=== PATIENT | female | born 1940 | race Caucasian/White ===

== ENCOUNTER 2018-03-17 20:11 | Emergency (ER) | payer OTHER ==
[2018-03-17 20:39] VITALS: RESP 18; TEMP 98; O2SAT 97
--- NOTE | 2018-03-17 22:38 | ED PDOC ---
HPI: Headache Time Seen by Provider: 03/17/18 21:16 Chief Complaint (Nursing): Headache Chief Complaint (Provider): Headache History Per: Patient History/Exam Limitations: no limitations Onset/Duration Of Symptoms: Days (x1) Current Symptoms Are (Timing): Still Present Additional Complaint(s): Ramiro Zhu is a 77 year old female with a past medical history of arthritis hypertension, diabetes, chronic back pain, and chronic leg pain who is presenting to the ED for evaluation of left ear pain, left sided headache, left shoulder pain, and chest pain onset last night. Patient states that she has pain all down the left arm and that her shoulder pain is worse with movement. She denies any shortness of breath, dizziness, fever, leg swelling, numbness, weakness, or urinary problems. Of note, patient is homeless and states that she ran out of her diabetes medications and has not been able to take them for a couple weeks. PMD: Darling Past Medical History Reviewed: Historical Data, Nursing Documentation, Vital Signs Vital Signs: Last Vital Signs Temp 98.0 F 03/17/18 20:37 Pulse 83 03/17/18 20:37 Resp 18 03/17/18 20:37 BP 190/100 H 03/17/18 20:37 Pulse Ox 97 03/17/18 20:37 - Medical History PMH: Arthritis, Asthma, Diabetes, HTN, Hypercholesterolemia, Chronic Pain (back and legs) Denies: Chronic Kidney Disease - Surgical History Surgical History: Cholecystectomy - Family History Family History: States: Unknown Family Hx - Social History Current smoker - smoking cessation education provided: No Alcohol: None Drugs: Denies - Immunization History Hx Tetanus Toxoid Vaccination: No Hx Influenza Vaccination: No Hx Pneumococcal Vaccination: No - Home Medications Home Medications: Ambulatory Orders Medication Instructions Recorded Crestor 40 mg PO DAILY 08/14/15 Gabapentin 600 mg PO TID 08/14/15 Levemir 12 units SUBCUT HS 08/14/15 Montelukast 10 mg PO DAILY 08/14/15 Omeprazole 40 mg PO DAILY 08/14/15 Prednisone 10 mg PO DAILY 08/14/15 Proair Hfa 90 % INH Q12H 08/14/15 Spiriva Inhalation Handihaler 18 inhaler INH Q6H 08/14/15 Device Voltaren 1 gel TOP Q6H PRN 08/14/15 metFORMIN [glucOPHAGE] 850 mg PO BID #0 tab 08/18/15 Ondansetron ODT [Zofran ODT] 1 odt PO BID PRN #14 odt 08/21/15 Polyethylene Glycol 3350 [Miralax] 17 gm PO DAILY #270 ml 08/21/15 oxyCODONE/Acetaminophen [Percocet 1 tab PO QID PRN #14 tab 08/21/15 5/325 mg Tab] Levofloxacin 750 mg PO DAILY 12/01/17 Losartan-Hctz 100-25 mg Tab 100 mg PO DAILY 12/01/17 Prednisone [Deltasone] 3 tab PO DAILY #12 tablet 12/01/17 Proair Hfa 90 mcg IH Q4 PRN 12/01/17 Insulin Aspart [Novolog] 15 unit SC BID #1 bottle 03/18/18 Insulin Detemir [Levemir] 45 units SC ACHS #1 vial 03/18/18 Losartan/Hydrochlorothiazide 1 each PO DAILY #30 tablet 03/18/18 [Losartan-Hctz 100-25 mg Tab] Non-Formulary 1 ea SC DAILY #1 ea 03/18/18 - Allergies Allergies/Adverse Reactions: Allergies Allergy/AdvReac Type Severity Reaction Status Date / Time celecoxib [From Celebrex] Allergy RASH Verified 03/17/18 20:37 ibuprofen [From Motrin] Allergy RASH Verified 03/17/18 20:37 Penicillins Allergy RASH Verified 03/17/18 20:37 Review of Systems ROS Statement: Except As Marked, All Systems Reviewed And Found Negative Constitutional: Negative for: Fever ENT: Positive for: Ear Pain Cardiovascular: Positive for: Chest Pain Respiratory: Negative for: Shortness of Breath Musculoskeletal: Positive for: Shoulder Pain, Arm Pain Neurological: Positive for: Headache Physical Exam - Reviewed Nursing Documentation Reviewed: Yes Vital Signs Reviewed: Yes - Physical Exam Appears: Positive for: Well (appears comfortable), Non-toxic, No Acute Distress Head Exam: Positive for: ATRAUMATIC, NORMAL INSPECTION, NORMOCEPHALIC Skin: Positive for: Normal Color, Warm, Dry Eye Exam: Positive for: EOMI, Normal appearance, PERRL ENT: Positive for: Other (tenderness to left sided posterior auricular and mastoid area ) Neck: Positive for: Normal, Painless ROM, Supple Cardiovascular/Chest: Positive for: Regular Rate, Rhythm. Negative for: Murmur Respiratory: Positive for: Normal Breath Sounds. Negative for: Respiratory Distress Gastrointestinal/Abdominal: Positive for: Normal Exam, Soft. Negative for: Tenderness Back: Positive for: Normal Inspection Extremity: Positive for: Normal ROM (painful for left shoulder). Negative for: Deformity, Swelling Neurologic/Psych: Positive for: Alert, Oriented. Negative for: Motor/Sensory Deficits - Laboratory Results Result Diagrams: 03/17/18 23:26 03/17/18 23:26 - ECG O2 Sat by Pulse Oximetry: 97 (RA) Pulse Ox Interpretation: Normal - Progress Re-evaluation Time: 05:50 Condition: Re-examined, Improved Medical Decision Making Medical Decision Making: Time: 21:56 Impression: headache, ear pain, chest pain, left shoulder pain Differentials: --Ear pain: otitis, mastoiditis --Headache: tension headache, migraines, musculoskeletal headache --Shoulder pain: musculoskeletal pain, tendonitis, arthritis --Chest Pain: ACS, Musculoskeletal pain Plan: --CT Head --CT Mastoids --EKG --BMP --Troponin --ED Urine Dipstick --CBC --Erythrocyte Sedimentation Rate --Chest X-ray --Glucose, POC --Flexeril 10 mg PO --Ultram 50 mg PO --Left Shoulder x-ray --Rapid Strep 21:56 CT Head FINDINGS: Brain: There are areas of periventricular and deep white matter hypoattenuation , nonspecific but most likely related to chronic small vessel ischemic changes. Ventricles: There is symmetric prominence of the ventricles and sulci, compatible with ageappropriate cerebral atrophy. Bones/joints: Normal. No acute fracture. Sinuses: Normal as visualized. No acute sinusitis. Mastoid air cells: Normal as visualized. No mastoid effusion. Soft tissues: Normal. IMPRESSION: No acute intracranial pathology. Age-appropriate volume loss. Nonspecific white matter changes likely related to microvascular changes. 23:41 CT Mastoids FINDINGS: Sella: Unremarkable. Mastoid air cells: Unremarkable as visualized. No mastoid effusion. Auditory system: Unremarkable. Intact ossicles. No middle ear fluid. Bones/joints: No acute fracture. Soft tissues: Unremarkable. IMPRESSION: Normal sella/posterior auditory CT. Scribe Attestation: Documented by, Juliann Alfonso acting as a scribe for Michelle Mckeon MD. Provider Scribe Attestation: All medical record entries made by the Scribe were at my direction and personally dictated by me. I have reviewed the chart and agree that the record accurately reflects my personal performance of the history, physical exam, medical decision making, and the department course for this patient. I have also personally directed, reviewed, and agree with the discharge instructions and disposition. Disposition - Clinical Impression Clinical Impression: Back pain, Headache, Hyperglycemia - Patient ED Disposition Is Patient to be Admitted: No Doctor Will See Patient In The: Office Counseled Patient/Family Regarding: Studies Performed, Diagnosis, Need For Followup - Disposition Referrals: Ramiro Bloom MD [Family Provider] - Disposition: Routine/Home Disposition Time: 05:57 Condition: GOOD Additional Instructions: RAMIRO ZHU, thank you for letting us take care of you today. Your provider was Michelle Mckeon MD and you were treated for HEADACHE,THROAT PAIN. The emergency medical care you received today was directed at your acute symptoms. If you were prescribed any medication, please fill it and take as directed. It may take several days for your symptoms to resolve. Return to the Emergency Department if your symptoms worsen, do not improve, or if you have any other problems. Please contact your doctor or call one of the physicians/clinics you have been referred to that are listed on the Patient Visit Information form that is included in your discharge packet. Bring any paperwork you were given at discharge with you along with any medications you are taking to your follow up visit. Our treatment cannot replace ongoing medical care by a primary care provider outside of the emergency department. Thank you for allowing the [facility] team to be part of your care today. If you had an X-Ray or CT scan: A Radiologist will review the ED reading if any change in treatment is needed we will contact you. If you had a blood, urine, or wound culture: It will take several days for the results, if any change in treatment is needed we will contact you. If you had an STI test: It will take 48 hours for the results. Please call after 1 week if you have not heard back. Prescriptions: Insulin Aspart [Novolog] 15 unit SC BID #1 bottle Insulin Detemir [Levemir] 45 units SC ACHS #1 vial Losartan/Hydrochlorothiazide [Losartan-Hctz 100-25 mg Tab] 1 each PO DAILY #30 tablet Non-Formulary 1 ea SC DAILY #1 ea Instructions: Hyperglycemia, Adult (DC), Headache, Adult (DC) Print Language: FAROESE
[2018-03-17 23:41] LABS: BASO # 0.1 K/uL (0.0-0.2); BASO % 0.8 % (0.0-2.0); EOS # 0.2 K/uL (0.0-0.7); HEMOGLOBIN 12.9 g/dL (12.0-16.0); LYMPH # 3.2 K/uL (1.0-4.3); LYMPH % 35.8 % (20.0-40.0); MEAN CELL VOLUME 85.3 fl (81.0-99.0); MEAN CORPUSCULAR HEMOGLOBIN 28.8 pg (27.0-31.0); MEAN CORPUSCULAR HGB CONC 33.7 g/dL (33.0-37.0); MEAN PLATELET VOLUME 9.8 fl (7.2-11.7); MONO # 0.7 K/uL (0.0-0.8); MONO % 7.7 % (0.0-10.0); NEUT # 4.8 K/uL (1.8-7.0); NEUT % 53.7 % (50.0-75.0); RBC 4.49 Mil/uL (3.80-5.20); RED CELL DISTRIBUTION WIDTH 13.3 % (11.5-14.5); WHITE BLOOD COUNT 8.9 K/uL (4.8-10.8)
[2018-03-17 23:54] LABS: BLOOD UREA NITROGEN 29 mg/dl (7-17); CALCIUM 9.2 mg/dL (8.4-10.2); GFR NON-AFRICAN AMERICAN 48
[2018-03-18 07:27] VITALS: BP 175/92; PULSE 72
--- NOTE | 2018-03-18 07:40 | CT ---
Date of service: 03/17/2018 PROCEDURE: CT HEAD WITHOUT CONTRAST. HISTORY: headache left ear pain COMPARISON: None available. TECHNIQUE: Axial computed tomography images were obtained through the head/brain without intravenous contrast. Radiation dose: Total exam DLP = mGy-cm. This CT exam was performed using one or more of the following dose reduction techniques: Automated exposure control, adjustment of the mA and/or kV according to patient size, and/or use of iterative reconstruction technique. FINDINGS: HEMORRHAGE: No intracranial hemorrhage. BRAIN: No mass effect or edema. No atrophy or chronic microvascular ischemic changes. VENTRICLES: Unremarkable. No hydrocephalus. CALVARIUM: Unremarkable. PARANASAL SINUSES: Unremarkable as visualized. No significant inflammatory changes. MASTOID AIR CELLS: Unremarkable as visualized. No inflammatory changes. OTHER FINDINGS: None. IMPRESSION: Normal CT of the Head.
--- NOTE | 2018-03-18 08:13 | CT ---
Date of service: 03/17/2018 PROCEDURE: CT OF THE TEMPORAL BONES WITHOUT CONTRAST HISTORY: left ear pain periaurical pain COMPARISON: None available. TECHNIQUE: High resolution axial images of the temporal bones were obtained. Coronal and sagittal reformats were generated. Radiation dose: Total exam DLP = mGy-cm. This CT exam was performed using one or more of the following dose reduction techniques: Automated exposure control, adjustment of the mA and/or kV according to patient size, and/or use of iterative reconstruction technique. FINDINGS: RIGHT TEMPORAL BONE: RIGHT MIDDLE EAR: Normal RIGHT INNER EAR: Cochlea: Normal Semicircular canals: Normal RIGHT MASTOID AIR CELLS: Normal RIGHT INTERNAL AUDITORY CANAL: Normal RIGHT EXTERNAL AUDITORY CANAL: Normal RIGHT VESTIBULAR AND COCHLEAR AQUEDUCT: Normal OTHER: LEFT TEMPORAL BONE: LEFT MIDDLE EAR: Normal LEFT INNER EAR: Cochlea: Normal Semicircular canals: Normal LEFT MASTOID AIR CELLS: Normal LEFT INTERNAL AUDITORY CANAL: Normal LEFT EXTERNAL AUDITORY CANAL: Normal LEFT VESTIBULAR AND COCHLEAR AQUEDUCTS: Normal OTHER FINDINGS: None . IMPRESSION: Unremarkable non contrast enhanced CT of the temporal bones.
--- NOTE | 2018-03-18 08:13 | RAD ---
Date of service: 03/17/2018 PROCEDURE: Radiographs of the Left Shoulder HISTORY: left shoulder pain no injury COMPARISON: No prior. FINDINGS: BONES: Normal. No fracture. JOINTS: Normal. Glenohumeral and acromioclavicular joints preserved. No osteoarthritis. SOFT TISSUES: Normal. OTHER FINDINGS: None. IMPRESSION: Normal radiographs of the left shoulder.
--- NOTE | 2018-03-18 08:17 | RAD ---
Date of service: 03/17/2018 HISTORY: chest pain COMPARISON: No prior. FINDINGS: LUNGS: No active pulmonary disease. PLEURA: No significant pleural effusion identified, no pneumothorax apparent. CARDIOVASCULAR: Normal. OSSEOUS STRUCTURES: No significant abnormalities. VISUALIZED UPPER ABDOMEN: Normal. OTHER FINDINGS: None. IMPRESSION: No active disease.
--- NOTE | 2018-03-18 21:29 | CARD ---
APPROVED REPORT Date of service: 03/17/2018 <Conclusion> Normal sinus rhythm Nonspecific T wave abnormality Abnormal ECG
== END 2018-03-18 07:00 | disposition home or self-care (01) ==
LOC: H.ER 20:11
DX: R51 Headache (principal); M54.9 Dorsalgia, unspecified; E11.65 Type 2 diabetes mellitus with hyperglycemia; Z79.4 Long term (current) use of insulin; G89.29 Other chronic pain; I10 Essential (primary) hypertension; J45.909 Unspecified asthma, uncomplicated; Z59.0 Homelessness; Z88.0 Allergy status to penicillin; Z88.6 Allergy status to analgesic agent

== ENCOUNTER 2018-03-28 21:27 | Emergency (ER) | payer OTHER ==
[2018-03-28 21:51] VITALS: O2SAT 95
[2018-03-28 22:29] LABS: BASO # 0.1 K/uL (0.0-0.2); BASO % 0.9 % (0.0-2.0); EOS # 0.1 K/uL (0.0-0.7); EOS % 1.9 % (0.0-4.0); HEMOGLOBIN 13.4 g/dL (12.0-16.0); LYMPH # 2.7 K/uL (1.0-4.3); LYMPH % 37.7 % (20.0-40.0); MEAN CELL VOLUME 85.3 fl (81.0-99.0); MEAN CORPUSCULAR HEMOGLOBIN 28.7 pg (27.0-31.0); MEAN CORPUSCULAR HGB CONC 33.6 g/dL (33.0-37.0); MEAN PLATELET VOLUME 9.6 fl (7.2-11.7); MONO # 0.6 K/uL (0.0-0.8); MONO % 8.5 % (0.0-10.0); NEUT # 3.7 K/uL (1.8-7.0); RBC 4.68 Mil/uL (3.80-5.20); RED CELL DISTRIBUTION WIDTH 13.7 % (11.5-14.5); WHITE BLOOD COUNT 7.3 K/uL (4.8-10.8)
[2018-03-28 22:34] LABS: SQUAMOUS EPITHIAL 2 /hpf (0-5); URINE BACTERIA RARE (<OCC); URINE BILIRUBIN NEGATIVE (NEGATIVE); URINE BLOOD SMALL (NEGATIVE); URINE CLARITY SLIGHTY-CLOUDY (Clear); URINE COLOR COLORLESS (YELLOW); URINE GLUCOSE (UA) >=500 mg/dL (Normal); URINE LEUKOCYTE ESTERASE LARGE Leu/uL (Negative); URINE PROTEIN 30 mg/dL (NEGATIVE); URINE UROBILINOGEN 0.2-1.0 mg/dL (0.2-1.0)
[2018-03-28] MEDS ORDERED: Insulin Regular 100 units/ml IV ONE (22:38)
[2018-03-28 22:55] LABS: ALB/GLOB RATIO 1.1 (1.0-2.1); ALBUMIN 3.8 g/dL (3.5-5.0); ALT/SGPT 32 U/L (9-52); AST/SGOT 26 U/L (14-36); BLOOD UREA NITROGEN 16 mg/dl (7-17); CALCIUM 9.3 mg/dL (8.4-10.2); GFR NON-AFRICAN AMERICAN > 60
--- NOTE | 2018-03-28 23:44 | ED PDOC ---
HPI: Headache Time Seen by Provider: 03/28/18 21:56 Chief Complaint (Nursing): Dizziness/Lightheaded Chief Complaint (Provider): headache History Per: Patient History/Exam Limitations: no limitations Onset/Duration Of Symptoms: Days (x2) Current Symptoms Are (Timing): Better Associated Symptoms: denies: Blurred Vision, Nausea, Vomiting Additional Complaint(s): Meli Zhu is a 77 year old female, with a past medical history of HTN and diabetes, who presents to the emergency department complaining of a headache onset since this evening. Patient reports headache was severe and lasted for an hour but has subsided. Patient states she ran out of medications and has not taken her HTN medications since Monday. She also reports not taking her insulin yesterday. Patient has not been able to see her PMD for her refills. She denies any nausea, vomit, visual disturbances, fever, chills or neck pain. No further medical complaints. PMD: Meli Bloom Past Medical History Reviewed: Historical Data, Nursing Documentation, Vital Signs Vital Signs: Last Vital Signs Temp 98.0 F 03/28/18 21:47 Pulse 65 03/28/18 22:46 Resp 16 03/28/18 21:47 BP 184/92 H 03/28/18 22:46 Pulse Ox 95 03/28/18 21:47 - Medical History PMH: Arthritis, Asthma, Diabetes, HTN, Hypercholesterolemia, Chronic Pain (back and legs) Denies: Chronic Kidney Disease - Surgical History Surgical History: Cholecystectomy - Family History Family History: States: Unknown Family Hx - Social History Current smoker - smoking cessation education provided: No Alcohol: None Drugs: Denies - Immunization History Hx Tetanus Toxoid Vaccination: No Hx Influenza Vaccination: No Hx Pneumococcal Vaccination: No - Home Medications Home Medications: Ambulatory Orders Medication Instructions Recorded Crestor 40 mg PO DAILY 08/14/15 Gabapentin 600 mg PO TID 08/14/15 Levemir 12 units SUBCUT HS 08/14/15 Montelukast 10 mg PO DAILY 08/14/15 Omeprazole 40 mg PO DAILY 08/14/15 Prednisone 10 mg PO DAILY 08/14/15 Proair Hfa 90 % INH Q12H 08/14/15 Spiriva Inhalation Handihaler 18 inhaler INH Q6H 08/14/15 Device Voltaren 1 gel TOP Q6H PRN 08/14/15 metFORMIN [glucOPHAGE] 850 mg PO BID #0 tab 08/18/15 Ondansetron ODT [Zofran ODT] 1 odt PO BID PRN #14 odt 08/21/15 Polyethylene Glycol 3350 [Miralax] 17 gm PO DAILY #270 ml 08/21/15 oxyCODONE/Acetaminophen [Percocet 1 tab PO QID PRN #14 tab 08/21/15 5/325 mg Tab] Levofloxacin 750 mg PO DAILY 12/01/17 Losartan-Hctz 100-25 mg Tab 100 mg PO DAILY 12/01/17 Prednisone [Deltasone] 3 tab PO DAILY #12 tablet 12/01/17 Proair Hfa 90 mcg IH Q4 PRN 12/01/17 Insulin Aspart [Novolog] 15 unit SC BID #1 bottle 03/18/18 Insulin Detemir [Levemir] 45 units SC ACHS #1 vial 03/18/18 Losartan/Hydrochlorothiazide 1 each PO DAILY #30 tablet 03/18/18 [Losartan-Hctz 100-25 mg Tab] Non-Formulary 1 ea SC DAILY #1 ea 03/18/18 Losartan/Hydrochlorothiazide 1 each PO QAM #7 tablet 03/29/18 [Losartan-Hctz 100-25 mg Tab] - Allergies Allergies/Adverse Reactions: Allergies Allergy/AdvReac Type Severity Reaction Status Date / Time celecoxib [From Celebrex] Allergy RASH Verified 03/17/18 20:37 ibuprofen [From Motrin] Allergy RASH Verified 03/17/18 20:37 Penicillins Allergy RASH Verified 03/17/18 20:37 Review of Systems ROS Statement: Except As Marked, All Systems Reviewed And Found Negative Constitutional: Negative for: Fever, Chills Eyes: Negative for: Vision Change Gastrointestinal: Negative for: Nausea, Vomiting Musculoskeletal: Negative for: Neck Pain Neurological: Positive for: Headache Physical Exam - Reviewed Nursing Documentation Reviewed: Yes Vital Signs Reviewed: Yes - Physical Exam Appears: Positive for: No Acute Distress Head Exam: Positive for: ATRAUMATIC, NORMOCEPHALIC Skin: Positive for: Normal Color, Warm, Dry Eye Exam: Positive for: Normal appearance, EOMI, PERRL Neck: Positive for: Painless ROM, Supple Cardiovascular/Chest: Positive for: Regular Rate, Rhythm. Negative for: Murmur Respiratory: Positive for: Normal Breath Sounds. Negative for: Respiratory Distress Gastrointestinal/Abdominal: Positive for: Normal Exam, Soft. Negative for: Tenderness, Guarding, Rebound Back: Positive for: Normal Inspection. Negative for: L CVA Tenderness, R CVA Tenderness, Vertebral Tenderness Extremity: Positive for: Normal ROM (upper and lower extremities). Negative for: Deformity, Swelling Neurologic/Psych: Positive for: Alert, Oriented, Gait (steady). Negative for: Motor/Sensory Deficits - Laboratory Results Result Diagrams: 03/28/18 22:25 03/28/18 22:25 - ECG O2 Sat by Pulse Oximetry: 95 (RA) Pulse Ox Interpretation: Normal Medical Decision Making Medical Decision Making: Time: 21:56 Initial Impression: 77 y/o female with headache in setting of noncompliant HTN. Initial Plan: --EKG --CMP --Troponin I --Urine dipstick --CBC w/ differential --Cozaar 100 mg PO --Cozaar 100 mg PO --HumunLIN R 6 units IV --Hydrodiuril 25 mg PO --Hydrodiuril 25 mg PO --Urinalysis --Reevaluation 00:45 -Labs reviewed and showed no clinical significant abnormalities. Patient reports improvement of symptoms. Blood pressure and glucose levels improved. Diagnosis of HTN. Patient reinforced need to follow up with PMD, and 1 week supply of blood pressure medications prescribed. Patient instructed to refill her insulin which is renewable at her local pharmacy. Return precautions provided. Scribe Attestation: Documented by Chris Rojo, acting as a scribe for Mika Keys MD. Provider Scribe Attestation: All medical record entries made by the Scribe were at my direction and personally dictated by me. I have reviewed the chart and agree that the record accurately reflects my personal performance of the history, physical exam, medical decision making, and the department course for this patient. I have also personally directed, reviewed, and agree with the discharge instructions and disposition. Disposition - Clinical Impression Clinical Impression: Hypertension, Diabetes mellitus - Disposition Disposition: Routine/Home Disposition Time: 00:47 Condition: STABLE Prescriptions: Losartan/Hydrochlorothiazide [Losartan-Hctz 100-25 mg Tab] 1 each PO QAM #7 tablet Instructions: High Blood Pressure in Adults Forms: [facility] (Icelandic) Print Language: BAHAMIAN
[2018-03-29 01:08] VITALS: BP 179/78; PULSE 62; RESP 18; TEMP 98.4
--- NOTE | 2018-03-29 07:54 | CARD ---
APPROVED REPORT Date of service: 03/28/2018 EKG Measurement Heart [id number] <Conclusion> Normal sinus rhythm Nonspecific T wave abnormality Abnormal ECG
== END 2018-03-29 00:50 | disposition home or self-care (01) ==
LOC: H.ER 21:27
DX: I10 Essential (primary) hypertension (principal); E11.9 Type 2 diabetes mellitus without complications; E78.00 Pure hypercholesterolemia, unspecified; Z88.6 Allergy status to analgesic agent; Z88.0 Allergy status to penicillin

== ENCOUNTER 2018-04-13 10:55 | Emergency (ER) | payer OTHER ==
--- NOTE | 2018-04-13 12:51 | ED PDOC ---
Lower Extremity Pain/Injury Time Seen by Provider: 04/13/18 11:31 Chief Complaint (Nursing): Lower Extremity Problem/Injury Chief Complaint (Provider): Wants nails cut in ER, medication refill History Per: Patient History/Exam Limitations: no limitations Current Symptoms Are (Timing): Still Present Additional Complaint(s): 77 yo female states she is recently homeless and would like to have her nails cut. PT states that she went to the clinic and they told her she needed to come to the ER. PT also states she would like a refill of her Voltran cream which she uses for foot pain due to arthritis. Pt denies any complaints. No N/V/D, chest pain, SOB, etc. Past Medical History Reviewed: Historical Data, Nursing Documentation, Vital Signs Vital Signs: Last Vital Signs Temp 97.5 F L 04/13/18 11:11 Pulse 77 04/13/18 11:11 Resp 18 04/13/18 11:11 BP 165/79 H 04/13/18 11:11 Pulse Ox 95 04/13/18 11:11 - Medical History PMH: Arthritis, Asthma, Diabetes, HTN, Hypercholesterolemia, Chronic Pain (back and legs) Denies: Chronic Kidney Disease - Surgical History Surgical History: Cholecystectomy - Family History Family History: States: Unknown Family Hx - Immunization History Hx Tetanus Toxoid Vaccination: No Hx Influenza Vaccination: No Hx Pneumococcal Vaccination: No - Home Medications Home Medications: Ambulatory Orders Medication Instructions Recorded Albuterol Sulfate [Proair Hfa] 2 puff IH Q4 PRN 04/13/18 Diclofenac Sodium [Voltaren] 100 gm TP TID PRN #60 gel..gram. 04/13/18 Fluticasone/Salmeterol [Advair 1 puff IH Q12 04/13/18 250-50 Diskus] Insulin Detemir [Levemir] 40 unit SC HS 04/13/18 Insulin Detemir [Levemir] 45 unit SC QAM 04/13/18 Losartan/Hydrochlorothiazide 1 tab PO DAILY 04/13/18 [Hyzaar 100-25 Tablet] MetFORMIN [glucoPHAGE] 1,000 mg PO BID 04/13/18 SITagliptin [Januvia] 100 mg PO DAILY 04/13/18 Sertraline [Zoloft] 25 mg PO DAILY 04/13/18 Tiotropium [Spiriva] 18 mcg IH DAILY 04/13/18 cycloSPORINE [Restasis] 1 drop OU Q12 04/13/18 - Allergies Allergies/Adverse Reactions: Allergies Allergy/AdvReac Type Severity Reaction Status Date / Time celecoxib [From Celebrex] Allergy RASH Verified 03/17/18 20:37 ibuprofen [From Motrin] Allergy RASH Verified 03/17/18 20:37 Penicillins Allergy RASH Verified 03/17/18 20:37 Review of Systems ROS Statement: Except As Marked, All Systems Reviewed And Found Negative Constitutional: Negative for: Fever, Chills Cardiovascular: Negative for: Chest Pain, Palpitations Respiratory: Negative for: Cough, Shortness of Breath Gastrointestinal: Negative for: Nausea, Vomiting, Abdominal Pain, Diarrhea Genitourinary Female: Negative for: Dysuria Physical Exam - Reviewed Nursing Documentation Reviewed: Yes Vital Signs Reviewed: Yes - Physical Exam Appears: Positive for: Well, Non-toxic, No Acute Distress Head Exam: Positive for: ATRAUMATIC, NORMAL INSPECTION, NORMOCEPHALIC Skin: Positive for: Normal Color, Warm, DRY Eye Exam: Positive for: Normal appearance ENT: Positive for: Normal ENT Inspection Neck: Positive for: Normal, Painless ROM Cardiovascular/Chest: Positive for: Regular Rate, Rhythm Respiratory: Positive for: CNT, Normal Breath Sounds Back: Positive for: Normal Inspection Extremity: Positive for: Normal ROM Neurologic/Psych: Positive for: Alert, Oriented - ECG O2 Sat by Pulse Oximetry: 95 Medical Decision Making Medical Decision Making: Discussed f/u with podiatry. Disposition - Clinical Impression Clinical Impression: Medication refill - Patient ED Disposition Is Patient to be Admitted: No Counseled Patient/Family Regarding: Diagnosis, Need For Followup, Rx Given - Disposition Referrals: Varun Pham DPM [Staff Provider] - Podiatry Clinic [Outside] Disposition: Routine/Home Disposition Time: 12:47 Condition: GOOD Prescriptions: Diclofenac Sodium [Voltaren] 100 gm TP TID PRN #60 gel..gram. PRN Reason: Pain, Moderate (4-7)
[2018-04-13 13:20] VITALS: BP 128/78; PULSE 80; RESP 19; TEMP 97.8; O2SAT 98
== END 2018-04-13 13:20 | disposition home or self-care (01) ==
LOC: H.ER 10:55
DX: Z76.0 Encounter for issue of repeat prescription (principal)

== ENCOUNTER 2018-04-16 23:37 | Emergency (ER) | payer OTHER ==
[2018-04-16 23:47] VITALS: TEMP 99
--- NOTE | 2018-04-17 01:57 | ED PDOC ---
HPI: SOB/CHF/COPD Time Seen by Provider: 04/17/18 00:20 Chief Complaint (Nursing): Shortness Of Breath Chief Complaint (Provider): leg swelling, heart palpitations History Per: Surgical Physician Assistant ([id number]) Onset/Duration Of Symptoms: Days (x3) Additional Complaint(s): Meli Zhu, a 77 year old female with past medical history of diabetes, asthma and hypertension, presents to the emergency department with chronic bilateral leg swelling, heart palpitations intermittant for 3 days. Patient is a frequent visitor and is recently homeless. She states that she has not seen her PMD in a while since she is on vacation. No further medical complaints. PMD: MerleKallie Past Medical History Reviewed: Historical Data, Nursing Documentation, Vital Signs Vital Signs: Last Vital Signs Temp 99 F 04/16/18 23:45 Pulse 100 H 04/16/18 23:45 Resp 22 04/16/18 23:45 BP 140/100 H 04/16/18 23:45 Pulse Ox 98 04/16/18 23:45 - Medical History PMH: Arthritis, Asthma, Diabetes, HTN, Hypercholesterolemia, Chronic Pain (back and legs) Denies: Chronic Kidney Disease - Surgical History Surgical History: Cholecystectomy - Family History Family History: States: Unknown Family Hx - Social History Current smoker - smoking cessation education provided: No Alcohol: None Drugs: Denies - Immunization History Hx Tetanus Toxoid Vaccination: No Hx Influenza Vaccination: No Hx Pneumococcal Vaccination: No - Home Medications Home Medications: Ambulatory Orders Medication Instructions Recorded Albuterol Sulfate [Proair Hfa] 2 puff IH Q4 PRN 04/13/18 Diclofenac Sodium [Voltaren] 100 gm TP TID PRN #60 gel..gram. 04/13/18 Fluticasone/Salmeterol [Advair 1 puff IH Q12 04/13/18 250-50 Diskus] Insulin Detemir [Levemir] 40 unit SC HS 04/13/18 Insulin Detemir [Levemir] 45 unit SC QAM 04/13/18 Losartan/Hydrochlorothiazide 1 tab PO DAILY 04/13/18 [Hyzaar 100-25 Tablet] RX: MetFORMIN [glucoPHAGE] 1,000 mg PO BID 04/13/18 SITagliptin [Januvia] 100 mg PO DAILY 04/13/18 Sertraline [Zoloft] 25 mg PO DAILY 04/13/18 Tiotropium [Spiriva] 18 mcg IH DAILY 04/13/18 cycloSPORINE [Restasis] 1 drop OU Q12 04/13/18 - Allergies Allergies/Adverse Reactions: Allergies Allergy/AdvReac Type Severity Reaction Status Date / Time celecoxib [From Celebrex] Allergy RASH Verified 03/17/18 20:37 ibuprofen [From Motrin] Allergy RASH Verified 03/17/18 20:37 Penicillins Allergy RASH Verified 03/17/18 20:37 Curb-65 Severity Score - CURB-65 Severity Score Confusion: No Bun >19mg/dl (>7mmol/L): No Respiratory Rate greater than/equal to 30: No Systolic BP <90 or Diastolic BP less than/equal 60mmHg: No Curb-65 Score: 0 Percentage 30-day mortality: 0.6% Wells Criteria for PE - Wells Criteria for Pulmonary Embolism Clinical Signs and Symptoms of DVT: No P.E is #1 Diagnosis, or Equally Likely: No Heart Rate >100: No Immobilization at least 3 days;Surgery previous 4 weeks: No Previous, objectively diagnosed PE or DVT: No Hemoptysis: No Malignancy w/treatment within 6 months, or palliative: No Total Score: 0 Review of Systems ROS Statement: Except As Marked, All Systems Reviewed And Found Negative ENT: Positive for: Ear Pain (left) Cardiovascular: Positive for: Palpitations. Negative for: Chest Pain, Orthopnea Respiratory: Negative for: Cough, Shortness of Breath Musculoskeletal: Positive for: Other (bilateral leg swelling) Physical Exam - Reviewed Nursing Documentation Reviewed: Yes Vital Signs Reviewed: Yes - Physical Exam Appears: Positive for: Well, Non-toxic, No Acute Distress Head Exam: Positive for: ATRAUMATIC, NORMAL INSPECTION, NORMOCEPHALIC Skin: Positive for: Normal Color, Warm, DRY Eye Exam: Positive for: EOMI, Normal appearance, PERRL ENT: Positive for: Normal ENT Inspection Neck: Positive for: Normal, Painless ROM Cardiovascular/Chest: Positive for: Regular Rate, Rhythm Respiratory: Positive for: Normal Breath Sounds. Negative for: Respiratory Distress Gastrointestinal/Abdominal: Positive for: Normal Exam, Soft Back: Positive for: Normal Inspection Extremity: Positive for: Normal ROM, Capillary Refill (less than 2 s), Swelling (trace, bilateral). Negative for: Tenderness, Pedal Edema, Calf Tenderness, Deformity Neurologic/Psych: Positive for: Alert, Oriented - Laboratory Results Result Diagrams: 04/17/18 02:30 04/17/18 02:30 - ECG O2 Sat by Pulse Oximetry: 98 (RA) Pulse Ox Interpretation: Normal Medical Decision Making Medical Decision Making: Time: 00:57 Initial Impression: pt with recent multiple ER visits, palpitaions, swelling, body pain rule out infection, elextrolyte abnormality Initial Plan: --EKG --CMP --Troponin --CBC w/ differential EKG reviewed Time: 4:18 -elevated sugar, patient given insulin, labs otherwise normal, CXR normal on my read. Time: 4:45 -EKG: normal sinus rhythm at 69 bpm, flat t wave leads 3 and F, hyperglycemia noted pt resting comfortably on reeval. no pain, no chest pain, no sob to be discharged w outpt follow up for sugar control, bp control. Scribe Attestation: Documented by Ilana Britton, acting as a scribe for Bk Uriarte MD. Provider Scribe Attestation: All medical record entries made by the Scribe were at my direction and personally dictated by me. I have reviewed the chart and agree that the record accurately reflects my personal performance of the history, physical exam, medi susan decision making, and the department course for this patient. I have also personally directed, reviewed, and agree with the discharge instructions and disposition. Disposition - Clinical Impression Clinical Impression: Hyperglycemia - Patient ED Disposition Is Patient to be Admitted: No Counseled Patient/Family Regarding: Studies Performed, Diagnosis, Need For F ollowup - Disposition Disposition: Routine/Home Disposition Time: 04:45 Condition: IMPROVED Additional Instructions: follow up with your primary doctor in 1-2 days return to the ED with any worsening or concerning symptoms Instructions: Hyperglycemia, Adult (DC) Forms: [employer] (Afghan) Print Language: GREEK
[2018-04-17 02:50] LABS: BASO # 0.1 K/uL (0.0-0.2); EOS # 0.2 K/uL (0.0-0.7); EOS % 2.1 % (0.0-4.0); HEMOGLOBIN 13.7 g/dL (12.0-16.0); LYMPH # 2.6 K/uL (1.0-4.3); LYMPH % 33.9 % (20.0-40.0); MEAN CELL VOLUME 84.8 fl (81.0-99.0); MEAN CORPUSCULAR HEMOGLOBIN 28.6 pg (27.0-31.0); MEAN CORPUSCULAR HGB CONC 33.8 g/dL (33.0-37.0); MONO # 0.6 K/uL (0.0-0.8); MONO % 7.9 % (0.0-10.0); NEUT # 4.2 K/uL (1.8-7.0); NEUT % 55.1 % (50.0-75.0); RBC 4.79 Mil/uL (3.80-5.20); RED CELL DISTRIBUTION WIDTH 13.3 % (11.5-14.5); WHITE BLOOD COUNT 7.7 K/uL (4.8-10.8)
[2018-04-17 03:12] LABS: ALBUMIN 3.7 g/dL (3.5-5.0); ALT/SGPT 26 U/L (9-52); AST/SGOT 31 U/L (14-36); BLOOD UREA NITROGEN 10 mg/dl (7-17); CALCIUM 9.1 mg/dL (8.4-10.2); GFR NON-AFRICAN AMERICAN > 60
[2018-04-17] MEDS ORDERED: Insulin Regular 100 units/ml SC STA (03:12)
[2018-04-17] MEDS ORDERED: Sodium Chloride 0.9% 1,000 ML IV STA (04:05)
[2018-04-17] MEDS ORDERED: Insulin Regular 100 units/ml ONE (04:05)
[2018-04-17] MEDS ORDERED: Albuterol 0.083% Inhal Sol (2.5 mg/3 mL) UD INH ONE (04:43)
[2018-04-17 05:15] VITALS: RESP 18
--- NOTE | 2018-04-17 06:49 | CARD ---
APPROVED REPORT Date of service: 04/16/2018 EKG Measurement Heart [id number] <Conclusion> Normal sinus rhythm Nonspecific ST abnormality Abnormal ECG
[2018-04-17 08:50] VITALS: BP 139/64; PULSE 88
--- NOTE | 2018-04-17 09:57 | RAD ---
Date of service: 04/17/2018 HISTORY: palpitations COMPARISON: 03/17/2018 FINDINGS: LUNGS: The lungs are well inflated and clear. PLEURA: No pleural effusions or pneumothorax. CARDIOVASCULAR: The heart is normal in size. Atherosclerotic aortic arch calcifications are present. OSSEOUS STRUCTURES: Within normal limits for the patient's age. VISUALIZED UPPER ABDOMEN: Normal. OTHER FINDINGS: None. IMPRESSION: No active pulmonary disease.
[2018-04-17 20:35] VITALS: O2SAT 98
== END 2018-04-17 05:20 | disposition home or self-care (01) ==
LOC: H.ER 23:37
DX: E11.65 Type 2 diabetes mellitus with hyperglycemia (principal); I10 Essential (primary) hypertension; G89.29 Other chronic pain; E78.00 Pure hypercholesterolemia, unspecified; J44.9 Chronic obstructive pulmonary disease, unspecified; Z59.0 Homelessness; Z79.4 Long term (current) use of insulin; Z79.899 Other long term (current) drug therapy; Z88.0 Allergy status to penicillin; Z88.6 Allergy status to analgesic agent
CPT/HCPCS: 71045; 80053; 82948; 84484; 85025; 93005; 96372; 99284; J7030

== ENCOUNTER 2018-04-23 04:32 | Emergency (ER) | payer OTHER ==
[2018-04-23 04:43] VITALS: BMI 33.5
[2018-04-23 04:48] VITALS: RESP 16; TEMP 97.8
[2018-04-23] MEDS ORDERED: Insulin Regular 100 units/ml IV ONE (05:04)
--- NOTE | 2018-04-23 05:06 | ED PDOC ---
HPI: SOB/CHF/COPD Time Seen by Provider: 04/23/18 04:35 Chief Complaint (Nursing): Abdominal Pain Chief Complaint (Provider): Shortness of breath History Per: Patient History/Exam Limitations: no limitations Additional Complaint(s): Patient is a 77 y/o female with history of hypertension, diabetes, and CHF, who presents to the ED complaining of shortness of breath. Patient is undomiciled and [facility]. When patient complained that she was made to sleep in a chair at the [facility] they sent her to the ED for evaluation. Patient denies any associated change in symptoms. She states she has chronic trouble sleeping in a chair but was made to do so at the [facility]. Past Medical History Reviewed: Historical Data, Nursing Documentation, Vital Signs Vital Signs: Last Vital Signs Temp 97.8 F 04/23/18 04:45 Pulse 74 04/23/18 04:45 Resp 16 04/23/18 04:45 BP 153/86 H 04/23/18 04:45 Pulse Ox 95 04/23/18 04:45 - Medical History PMH: Arthritis, Asthma, Diabetes, HTN, Hypercholesterolemia, Chronic Pain (back and legs) Denies: Chronic Kidney Disease - Surgical History Surgical History: Cholecystectomy - Family History Family History: States: Unknown Family Hx - Living Arrangements Living Arrangements: Other (homeless) - Immunization History Hx Tetanus Toxoid Vaccination: No Hx Influenza Vaccination: No Hx Pneumococcal Vaccination: No - Home Medications Home Medications: Ambulatory Orders Medication Instructions Recorded Albuterol Sulfate [Proair Hfa] 2 puff IH Q4 PRN 04/13/18 Diclofenac Sodium [Voltaren] 100 gm TP TID PRN #60 gel..gram. 04/13/18 Fluticasone/Salmeterol [Advair 1 puff IH Q12 04/13/18 250-50 Diskus] Insulin Detemir [Levemir] 40 unit SC HS 04/13/18 Insulin Detemir [Levemir] 45 unit SC QAM 04/13/18 Losartan/Hydrochlorothiazide 1 tab PO DAILY 04/13/18 [Hyzaar 100-25 Tablet] MetFORMIN [glucoPHAGE] 1,000 mg PO BID 04/13/18 SITagliptin [Januvia] 100 mg PO DAILY 04/13/18 Sertraline [Zoloft] 25 mg PO DAILY 04/13/18 Tiotropium [Spiriva] 18 mcg IH DAILY 04/13/18 cycloSPORINE [Restasis] 1 drop OU Q12 04/13/18 - Allergies Allergies/Adverse Reactions: Allergies Allergy/AdvReac Type Severity Reaction Status Date / Time celecoxib [From Celebrex] Allergy RASH Verified 04/23/18 04:43 ibuprofen [From Motrin] Allergy RASH Verified 04/23/18 04:43 Penicillins Allergy RASH Verified 04/23/18 04:43 Review of Systems ROS Statement: Except As Marked, All Systems Reviewed And Found Negative Respiratory: Positive for: Shortness of Breath Physical Exam - Reviewed Nursing Documentation Reviewed: Yes Vital Signs Reviewed: Yes - Physical Exam Appears: Positive for: Well, Non-toxic, No Acute Distress Head Exam: Positive for: ATRAUMATIC, NORMOCEPHALIC Skin: Positive for: Normal Color, Warm, Dry Eye Exam: Positive for: EOMI, Normal appearance, PERRL Neck: Positive for: Normal, Painless ROM Cardiovascular/Chest: Positive for: Regular Rate, Rhythm. Negative for: Murmur Respiratory: Positive for: Normal Breath Sounds. Negative for: Respiratory Distress Gastrointestinal/Abdominal: Positive for: Normal Exam, Soft. Negative for: Tenderness Extremity: Positive for: Normal ROM, Swelling (2+ edema to extremities). Negative for: Pedal Edema, Deformity Neurologic/Psych: Positive for: Alert, Oriented. Negative for: Motor/Sensory Deficits - Laboratory Results Result Diagrams: 04/23/18 05:00 04/23/18 05:00 - ECG O2 Sat by Pulse Oximetry: 95 (RA) Pulse Ox Interpretation: Normal Medical Decision Making Medical Decision Making: Time: 04:45 Impression: 77 y/o female with chronic CHF Initial plan: EKG BNP CMP Lipase Troponin I CBC w/ diff Insulin 10 units UA Time: 06:32 Labs reviewed no clinically significant abnormality with exception of elevated blood glucose. Provided reinforced need for insulin compliance. Diagnosis is hyperglycemia and diabetes. Patient is stable for discharge. -------- Scribe Attestation: Documented by Jenaro Artis, acting as a scribe for Mika Keys MD. Provider Scribe Attestation: All medical record entries made by the Scribe were at my direction and personally dictated by me. I have reviewed the chart and agree that the record accurately reflects my personal performance of the history, physical exam, medical decision making, and the department course for this patient. I have also personally directed, reviewed, and agree with the discharge instructions and disposition. Disposition - Clinical Impression Clinical Impression: Diabetes mellitus with hyperglycemia - Patient ED Disposition Is Patient to be Admitted: No - Disposition Disposition: Routine/Home Disposition Time: 06:32 Condition: STABLE Additional Instructions: RAMIRO POLANCO, thank you for letting us take care of you today. Your provider was Mika Keys MD and you were treated for ABD PAIN. The emergency medical care you received today was directed at your acute symptoms. If you were prescribed any medication, please fill it and take as directed. It may take several days for your symptoms to resolve. Return to the Emergency Department if your symptoms worsen, do not improve, or if you have any other problems. Please contact your doctor or call one of the physicians/clinics you have been referred to that are listed on the Patient Visit Information form that is included in your discharge packet. Bring any paperwork you were given at discharge with you along with any medications you are taking to your follow up v isit. Our treatment cannot replace ongoing medical care by a primary care provider outside of the emergency department. Thank you for allowing the [facility] team to be part of your care today. If you had an X-Ray or CT scan: A Radiologist will review the ED reading if any change in treatment is needed we will contact you. If you had a blood, urine, or wound culture: It will take several days for the results, if any change in treatment is needed we will contact you. If you had an STI test: It will take 48 hours for the results. Please call after 1 week if you have not heard back. Instructions: Diabetes and Diet Forms: [employer] (C[place] Rican) Print Language: SCOTTISH
[2018-04-23 05:16] LABS: BASO # 0.1 K/uL (0.0-0.2); BASO % 0.8 % (0.0-2.0); EOS # 0.2 K/uL (0.0-0.7); EOS % 2.7 % (0.0-4.0); HEMOGLOBIN 13.7 g/dL (12.0-16.0); LYMPH # 1.9 K/uL (1.0-4.3); LYMPH % 27.5 % (20.0-40.0); MEAN CELL VOLUME 85.3 fl (81.0-99.0); MEAN CORPUSCULAR HEMOGLOBIN 28.7 pg (27.0-31.0); MEAN CORPUSCULAR HGB CONC 33.7 g/dL (33.0-37.0); MEAN PLATELET VOLUME 9.7 fl (7.2-11.7); MONO # 0.7 K/uL (0.0-0.8); MONO % 10.8 % (0.0-10.0); NEUT % 58.2 % (50.0-75.0); NRBC % 0.1 % (0.0-0.0); RBC 4.78 Mil/uL (3.80-5.20); RED CELL DISTRIBUTION WIDTH 13.2 % (11.5-14.5); WHITE BLOOD COUNT 6.8 K/uL (4.8-10.8)
[2018-04-23 05:31] LABS: B-TYPE NATRIURETIC PEPTIDE 75.1 pg/ml (0-900)
[2018-04-23 05:39] LABS: ALB/GLOB RATIO 1.1 (1.0-2.1); ALBUMIN 3.7 g/dL (3.5-5.0); ALT/SGPT 30 U/L (9-52); AST/SGOT 26 U/L (14-36); BLOOD UREA NITROGEN 24 mg/dl (7-17); CALCIUM 9.8 mg/dL (8.4-10.2); GFR NON-AFRICAN AMERICAN 54; LIPASE 137 U/L (23-300)
[2018-04-23 06:43] VITALS: BP 137/66; PULSE 88; O2SAT 99
--- NOTE | 2018-04-23 10:48 | CARD ---
APPROVED REPORT Date of service: 04/23/2018 EKG Measurement Heart [id number] ID [id number] <Conclusion> Normal sinus rhythm Nonspecific T wave abnormality Abnormal ECG
== END 2018-04-23 06:50 | disposition home or self-care (01) ==
LOC: H.ER 04:32
DX: E11.65 Type 2 diabetes mellitus with hyperglycemia (principal); G89.29 Other chronic pain; I11.0 Hypertensive heart disease with heart failure; J44.9 Chronic obstructive pulmonary disease, unspecified; Z79.4 Long term (current) use of insulin; Z79.899 Other long term (current) drug therapy; Z88.0 Allergy status to penicillin; Z88.6 Allergy status to analgesic agent

== ENCOUNTER 2018-04-25 19:18 | Emergency (ER) | payer OTHER ==
[2018-04-25 19:18] VITALS: BMI 33.5
[2018-04-25 19:42] VITALS: O2SAT 95
--- NOTE | 2018-04-25 21:01 | ED PDOC ---
Lower Extremity Pain/Injury Time Seen by Provider: 04/25/18 20:13 Chief Complaint (Nursing): Lower Extremity Problem/Injury Chief Complaint (Provider): Leg swelling History Per: Patient History/Exam Limitations: no limitations Onset/Duration Of Symptoms: Days (x3) Current Symptoms Are (Timing): Still Present Additional Complaint(s): Meli Zhu, a 77 year old female with a past medical history of hypertension, diabetes, congestive heart failure, hypercholesterolemia, arthritis, asthma and well know to the ED for frequent visits secondary to homelessness, presents to the ED complaining of leg swelling associated with pain onset for x3 days. She denies taking any medications, and admits she has to walk frequently secondary to homelessness. The patient denies trauma, shortness of breath, chest pain, and fever. PCP: Dr Deal Past Medical History Reviewed: Historical Data, Nursing Documentation, Vital Signs Vital Signs: Last Vital Signs Temp 98.7 F 04/25/18 19:38 Pulse 86 04/25/18 19:38 Resp 17 04/25/18 19:38 BP 161/78 H 04/25/18 19:38 Pulse Ox 95 04/25/18 19:38 - Medical History PMH: Arthritis, Asthma, CHF, Diabetes, HTN, Hypercholesterolemia, Chronic Pain (back and legs) Denies: Chronic Kidney Disease - Surgical History Surgical History: Cholecystectomy - Family History Family History: States: Unknown Family Hx - Social History Current smoker - smoking cessation education provided: No Alcohol: None Drugs: Denies - Immunization History Hx Tetanus Toxoid Vaccination: No Hx Influenza Vaccination: No Hx Pneumococcal Vaccination: No - Home Medications Home Medications: Ambulatory Orders Medication Instructions Recorded Albuterol Sulfate [Proair Hfa] 2 puff IH Q4 PRN 04/13/18 Diclofenac Sodium [Voltaren] 100 gm TP TID PRN #60 gel..gram. 04/13/18 Fluticasone/Salmeterol [Advair 1 puff IH Q12 04/13/18 250-50 Diskus] Insulin Detemir [Levemir] 40 unit SC HS 04/13/18 Insulin Detemir [Levemir] 45 unit SC QAM 04/13/18 Losartan/Hydrochlorothiazide 1 tab PO DAILY 04/13/18 [Hyzaar 100-25 Tablet] RX: MetFORMIN [glucoPHAGE] 1,000 mg PO BID 04/13/18 SITagliptin [Januvia] 100 mg PO DAILY 04/13/18 Sertraline [Zoloft] 25 mg PO DAILY 04/13/18 Tiotropium [Spiriva] 18 mcg IH DAILY 04/13/18 cycloSPORINE [Restasis] 1 drop OU Q12 04/13/18 RX: Acetaminophen [Tylenol Extra 1,000 mg PO Q6 PRN #100 tablet 04/25/18 Strength] RX: traMADol [Ultram] 50 mg PO TID #15 tab 04/25/18 - Allergies Allergies/Adverse Reactions: Allergies Allergy/AdvReac Type Severity Reaction Status Date / Time celecoxib [From Celebrex] Allergy RASH Verified 04/25/18 19:42 ibuprofen [From Motrin] Allergy RASH Verified 04/25/18 19:42 Penicillins Allergy RASH Verified 04/25/18 19:42 Review of Systems ROS Statement: Except As Marked, All Systems Reviewed And Found Negative Constitutional: Negative for: Fever Cardiovascular: Positive for: Edema (leg). Negative for: Chest Pain Respiratory: Negative for: Shortness of Breath Musculoskeletal: Positive for: Leg Pain Physical Exam - Reviewed Nursing Documentation Reviewed: Yes Vital Signs Reviewed: Yes - Physical Exam Appears: Positive for: Non-toxic, No Acute Distress Extremity: Positive for: Pedal Edema (extended from leg edema), Swelling (bilateral lower extremity doughy edema with minimal pitting). Negative for: Calf Tenderness - Laboratory Results Result Diagrams: 04/25/18 20:56 04/25/18 20:56 - ECG O2 Sat by Pulse Oximetry: 95 (RA) Pulse Ox Interpretation: Normal Medical Decision Making Medical Decision Making: Time: 20:35 Initial Impression: Leg edema and hyperglycemia Initial Plan: --EKG --labs --chest x-ray 2300 Patient care endorsed from provider to Dr. Uriarte pending urine and repeat sugar. Scribe Attestation: Documented by Joby Pete & Chris Rojo, acting as a scribe for Ninfa Crum MD. Provider Scribe Attestation: All medical record entries made by the Scribe were at my direction and personally dictated by me. I have reviewed the chart and agree that the record accurately reflects my personal performance of the history, physical exam, medical decision making, and the department course for this patient. I have also personally directed, reviewed, and agree with the discharge instructions and disposition. Disposition - Clinical Impression Clinical Impression: Leg edema, Diabetes mellitus with hyperglycemia - Disposition Referrals: [facility] [Outside] - 04/26/18 Condition: IMPROVED Prescriptions: RX: Acetaminophen [Tylenol Extra Strength] 1,000 mg PO Q6 PRN #100 tablet PRN Reason: FEVER OR PAIN RX: traMADol [Ultram] 50 mg PO TID #15 tab Instructions: Dependent Edema (DC), Diabetes Type 2 (DC) Forms: [employer] (Kyrgyz) Print Language: LITHUANIAN
[2018-04-25 21:03] LABS: BASO # 0.1 K/uL (0.0-0.2); BASO % 0.7 % (0.0-2.0); EOS # 0.2 K/uL (0.0-0.7); EOS % 1.8 % (0.0-4.0); HEMOGLOBIN 12.5 g/dL (12.0-16.0); LYMPH # 2.4 K/uL (1.0-4.3); LYMPH % 26.9 % (20.0-40.0); MEAN CELL VOLUME 84.9 fl (81.0-99.0); MEAN PLATELET VOLUME 9.9 fl (7.2-11.7); MONO # 0.9 K/uL (0.0-0.8); NEUT # 5.4 K/uL (1.8-7.0); NEUT % 60.6 % (50.0-75.0); RBC 4.47 Mil/uL (3.80-5.20); RED CELL DISTRIBUTION WIDTH 13.4 % (11.5-14.5); WHITE BLOOD COUNT 8.9 K/uL (4.8-10.8)
[2018-04-25 21:10] LABS: VENOUS BLOOD GAS BASE EXCESS 5.5 mmol/L (0.0-2.0); VENOUS BLOOD GAS PCO2 56 mmHg (40-60); VENOUS BLOOD GAS PO2 27 mm/Hg (30-55); VENOUS BLOOD PH 7.37 (7.32-7.43)
[2018-04-25] MEDS ORDERED: Insulin Regular 100 units/ml SC STA ×2 (21:12→22:53)
[2018-04-25] MEDS ORDERED: Insulin Regular 100 units/ml IVP STA (21:12)
[2018-04-25 21:28] LABS: B-TYPE NATRIURETIC PEPTIDE 47.6 pg/ml (0-900)
[2018-04-25 21:52] LABS: ALB/GLOB RATIO 1.1 (1.0-2.1); ALBUMIN 3.6 g/dL (3.5-5.0); ALT/SGPT 27 U/L (9-52); AST/SGOT 25 U/L (14-36); BLOOD UREA NITROGEN 23 mg/dl (7-17); CALCIUM 9.1 mg/dL (8.4-10.2); GFR NON-AFRICAN AMERICAN > 60
--- NOTE | 2018-04-25 23:10 | ED PDOC ---
- Laboratory Results Result Diagrams: 04/25/18 20:56 04/25/18 20:56 - ECG O2 Sat by Pulse Oximetry: 95 (RA) Medical Decision Making Medical Decision Makin Patient care endorsed from Dr. Crum to this provider pending urine and repeat sugar. UA positive for infection sugar improving pt awake alert, patent airway, stable gait. stable for dc. aware that needs tof ollow up Scribe Attestation: Documented by Abby Majano, acting as a scribe for Bk Uriarte MD. Provider Scribe Attestation: All medical record entries made by the Scribe were at my direction and personally dictated by me. I have reviewed the chart and agree that the record accurately reflects my personal performance of the history, physical exam, medical decision making, and the department course for this patient. I have also personally directed, reviewed, and agree with the discharge instructions and disposition. Disposition Counseled Patient/Family Regarding: Studies Performed, Diagnosis, Need For Followup - Clinical Impression Clinical Impression: Leg edema, Diabetes mellitus with hyperglycemia - POA Present On Arrival: None - Disposition Referrals: [facility] [Outside] - 04/26/18 Disposition: Routine/Home Disposition Time: 00:00 Condition: IMPROVED Prescriptions: RX: Acetaminophen [Tylenol Extra Strength] 1,000 mg PO Q6 PRN #100 tablet PRN Reason: FEVER OR PAIN Nitrofurantoin Macrocrystals [Macrobid] 100 mg PO BID #14 cap RX: traMADol [Ultram] 50 mg PO TID #15 tab Instructions: Urinary Tract Infection, Adult (DC), Dependent Edema (DC), Diabetes Type 2 (DC) Forms: [employer] (Kazakh) Print Language: ARABIC
[2018-04-25 23:42] LABS: SQUAMOUS EPITHIAL 3 /hpf (0-5); URINE BACTERIA RARE (<OCC); URINE BILIRUBIN NEGATIVE (NEGATIVE); URINE BLOOD SMALL (NEGATIVE); URINE CLARITY SLIGHTY-CLOUDY (Clear); URINE COLOR YELLOW (YELLOW); URINE GLUCOSE (UA) >=500 mg/dL (Normal); URINE LEUKOCYTE ESTERASE LARGE Leu/uL (Negative); URINE PROTEIN 30 mg/dL (NEGATIVE); URINE UROBILINOGEN 0.2-1.0 mg/dL (0.2-1.0)
[2018-04-26 01:14] VITALS: BP 122/59; PULSE 71; RESP 18; TEMP 98.1
--- NOTE | 2018-04-26 06:51 | CARD ---
APPROVED REPORT Date of service: 04/25/2018 EKG Measurement Heart [id number] <Conclusion> Normal sinus rhythm Normal ECG
--- NOTE | 2018-04-26 08:34 | RAD ---
HISTORY: Leg edema COMPARISON: 04/17/2018. TECHNIQUE: Chest PA and lateral FINDINGS: LINES AND TUBES: None. LUNG AND PLEURA: The lungs are well inflated and clear. No pleural effusion or pneumothorax. HEART AND MEDIASTINUM: The heart is not enlarged. Atherosclerotic aortic arch calcifications are present. The hilar and mediastinal contours are within normal limits. SKELETAL STRUCTURES: The bony structures are within normal limits for the patient's age. VISUALIZED UPPER ABDOMEN: Normal. OTHER FINDINGS: None. IMPRESSION: No active pulmonary disease.
== END 2018-04-26 01:25 | disposition home or self-care (01) ==
LOC: H.ER 19:18
DX: R60.0 Localized edema (principal); E11.65 Type 2 diabetes mellitus with hyperglycemia; Z79.4 Long term (current) use of insulin; E78.00 Pure hypercholesterolemia, unspecified; I11.0 Hypertensive heart disease with heart failure; Z88.0 Allergy status to penicillin; Z88.6 Allergy status to analgesic agent

== ENCOUNTER 2018-04-28 23:59 | Inpatient (IN) | payer MEDICARE, OTHER ==
[2018-04-28 23:59] VITALS: BMI 33.5
[2018-04-29] MEDS ORDERED: Promethazine/Cod 6.25mg-10mg/5ml Syr UD PO STA (00:39)
[2018-04-29] MEDS ORDERED: Albuterol-Ipratrop 3 mg / 0.5 (3 ml) UD INH STA (00:39)
[2018-04-29 01:07] LABS: ALBUMIN 3.6 g/dL (3.5-5.0); ALT/SGPT 26 U/L (9-52); AST/SGOT 23 U/L (14-36); B-TYPE NATRIURETIC PEPTIDE 74.8 pg/ml (0-900); BLOOD UREA NITROGEN 19 mg/dl (7-17); GFR NON-AFRICAN AMERICAN 54
--- NOTE | 2018-04-29 01:13 | ED PDOC ---
History of Present Illness History of Present Illness: Patient is a 77 y/o female with history of HTN, CHF, and diabetes who presents to the ED complaining of flu-like symptoms, onset x2 day ago. Patient is undomiciled and resides at the group home. Patient is complaining of fever and cough; cough is productive of a yellow phlegm. Patient also reports having sore throat, headache, chest pain, general malaise and body aches. Patient states she was recently seen for similar symptoms several days ago but at that time she didn't feel as sick and was discharged. Additionally patient reports that in the past day she has developed swelling to the posterior aspect of her neck with a draining wound. The wound is tender and warm to the touch. PMD: none provided HPI: Influenza Time Seen by Provider: 04/29/18 00:15 Chief Complaint: Cough, Cold, Congestion Chief Complaint (Provider): Flu-Like symptoms History Per: Patient Exam Limitations: no limitations Symptoms include: fever, headache, bodyaches, sore throat, cough, chest pain Past Medical History Reviewed: Historical Data, Nursing Documentation, Vital Signs Vital Signs: Last Vital Signs Temp 98.3 F 04/29/18 00:05 Pulse 85 04/29/18 00:05 Resp 16 04/29/18 00:05 BP 154/76 H 04/29/18 00:05 Pulse Ox 94 L 04/29/18 00:05 - Medical History PMH: Arthritis, Asthma, CHF, Diabetes, HTN, Hypercholesterolemia, Chronic Pain (back and legs) Denies: Chronic Kidney Disease - Surgical History Surgical History: Cholecystectomy - Family History Family History: States: Unknown Family Hx - Living Arrangements Living Arrangements: Other (Undomiciled) - Social History Current smoker - smoking cessation education provided: No Alcohol: None Drugs: Denies - Immunization History Hx Tetanus Toxoid Vaccination: No Hx Influenza Vaccination: No Hx Pneumococcal Vaccination: No - Home Medications Home Medications: Ambulatory Orders Medication Instructions Recorded Albuterol Sulfate [Proair Hfa] 2 puff IH Q4 PRN 04/13/18 Diclofenac Sodium [Voltaren] 100 gm TP TID PRN #60 gel..gram. 04/13/18 Fluticasone/Salmeterol [Advair 1 puff IH Q12 04/13/18 250-50 Diskus] Insulin Detemir [Levemir] 40 unit SC HS 04/13/18 Insulin Detemir [Levemir] 45 unit SC QAM 04/13/18 Losartan/Hydrochlorothiazide 1 tab PO DAILY 04/13/18 [Hyzaar 100-25 Tablet] MetFORMIN [glucoPHAGE] 1,000 mg PO BID 04/13/18 SITagliptin [Januvia] 100 mg PO DAILY 04/13/18 Sertraline [Zoloft] 25 mg PO DAILY 04/13/18 Tiotropium [Spiriva] 18 mcg IH DAILY 04/13/18 cycloSPORINE [Restasis] 1 drop OU Q12 04/13/18 traMADol [Ultram] 50 mg PO TID #15 tab 04/25/18 Clindamycin [Cleocin] 300 mg PO Q8 #21 cap 05/07/18 Lactobacillus Acidophilus [Bacid 1 cap PO BID #14 cap 05/07/18 Acidophilus] - Allergies Allergies/Adverse Reactions: Allergies Allergy/AdvReac Type Severity Reaction Status Date / Time celecoxib [From Celebrex] Allergy RASH Verified 04/29/18 00:08 ibuprofen [From Motrin] Allergy RASH Verified 04/29/18 00:08 Penicillins Allergy RASH Verified 04/29/18 00:08 Review of Systems ROS Statement: Except As Marked, All Systems Reviewed And Found Negative Constitutional: Positive for: Fever, Weakness, Malaise, Other (body aches) ENT: Positive for: Throat Pain Cardiovascular: Positive for: Chest Pain Respiratory: Positive for: Cough Neurological: Positive for: Headache Physical Exam - Reviewed Nursing Documentation Reviewed: Yes Vital Signs Reviewed: Yes - Physical Exam Appears: Positive for: Non-toxic. Negative for: Well (uncomfortable) Head Exam: Positive for: ATRAUMATIC, NORMOCEPHALIC Skin: Positive for: Normal Color, Warm, Dry Eye Exam: Positive for: EOMI, Normal appearance, PERRL Neck: Negative for: Normal (3 cm area of fluctuance and surrounding erythema with scabbed lesion; tender to touch ) Cardiovascular/Chest: Positive for: Regular Rate, Rhythm. Negative for: Murmur Respiratory: Positive for: Rhonchi (bilaterally) Gastrointestinal/Abdominal: Positive for: Normal Exam, Soft. Negative for: Tenderness Extremity: Positive for: Normal ROM, Pedal Edema (1+ edema to lower extremities bilaterally). Negative for: Deformity Neurologic/Psych: Positive for: Alert, Oriented. Negative for: Motor/Sensory Deficits Medical Decision Making Medical Decision Making: Time: 00:38 Initial Impression: 77 y/o female with flu-like symptoms and cutaneous abscess to posterior neck Initial Plan: EKG BNP CMP Lactic Acid Troponin I CBC w/ diff CXR Duoneb Promethazine Toradol Blood culture Influenza A B UA 01:20 --labs reviewed and are significant for leukocytosis and hyperglycemia. --Surgical consult ordered w Dr. Dumas, medical or surgical [facility]. --Admitted to medical service as decided with Dr. Lancaster. Diagnoses are Cellulitis Posterior Neck with Sebaceous Cyst/Abscess, Acute Bronchitis and hyperglycemia. Scribe Attestation: Documented by Jenaro Artis acting as a scribe for Mika Keys MD Provider Scribe Attestation: All medical record entries made by the Scribe were at my direction and personally dictated by me. I have reviewed the chart and agree that the record accurately reflects my personal performance of the history, physical exam, medical decision making, and the department course for this patient. I have also personally directed, reviewed, and agree with the discharge instructions and disposition. - Laboratory Results Result Diagrams: 05/02/18 06:05 18 05:30 - ECG O2 Sat by Pulse Oximetry: 94 (RA) Pulse Ox Interpretation: Normal Disposition - Clinical Impression Clinical Impression: Cellulitis and abscess of neck, Acute bronchitis, Hyperglycemia - Patient ED Disposition Is Patient to be Admitted: Yes - Disposition Disposition Time: 01:35 Condition: STABLE
[2018-04-29] MEDS ORDERED: Epinephrine /Lidocaine HCL 1:100,000/2% 30 ml INJ ONE (01:36)
[2018-04-29] MEDS ORDERED: Insulin Regular 100 units/ml IV ONE ×2 (01:37→02:22)
--- NOTE | 2018-04-29 01:41 | CP.PCM.CON ---
<Luis Dumas - Last Filed: 04/29/18 01:37 EDT> History of Present Illness - History of Present Illness History of Present Illness: Surgery Consult Note- Dr. Tyson Reason for consult: Neck Abscess 77F pmhx significant for DM, HTN, presents to [facility] ED with continued shortness of breath, productive cough, and worsening pain in the back of her neck that has been ongoing for 2 weeks. Surgery was consulted for abscess of the neck. Patient admits to having some discharge from the area. Pain has progressively getting worse over the last 2 weeks and growing in size. Patient is homeless and has poor hygiene. ED Workup: patient being admitted for SOB, chest pain, cellulitis, and hyperglycemia PMH: stated above, CHF PSH: Denies ALL: NKDA SocialHx: denies hx of tobacco use, etoh, recreational drug use. Patient is homeless and lives out of [place] Review of Systems - Review of Systems All systems: reviewed and no additional remarkable complaints except - Constitutional Constitutional: As Per HPI Past Patient History - Infectious Disease Hx of Infectious Diseases: None - Past Medical History & Family History Past Medical History?: Yes - Past Social History Alcohol: None Drugs: Denies - CARDIAC Hx Congestive Heart Failure: Yes Hx Hypercholesterolemia: Yes Hx Hypertension: Yes - PULMONARY Hx Asthma: Yes - NEUROLOGICAL Hx Neurological Disorder: No - HEENT Hx Cataracts: Yes - RENAL Hx Chronic Kidney Disease: No - ENDOCRINE/METABOLIC Hx Diabetes Mellitus Type 2: Yes - HEMATOLOGICAL/ONCOLOGICAL Hx Blood Disorders: No - INTEGUMENTARY Hx Dermatological Problems: No - MUSCULOSKELETAL/RHEUMATOLOGICAL Hx Arthritis: Yes - GASTROINTESTINAL Hx Gastroesophageal Reflux: Yes - GENITOURINARY/GYNECOLOGICAL Hx Genitourinary Disorders: No - PSYCHIATRIC Hx Psychophysiologic Disorder: No Hx Substance Use: No - SURGICAL HISTORY Hx Cholecystectomy: Yes - ANESTHESIA Hx Anesthesia: Yes Hx Anesthesia Reactions: No Meds Allergies/Adverse Reactions: Allergies Allergy/AdvReac Type Severity Reaction Status Date / Time celecoxib [From Celebrex] Allergy RASH Verified 04/29/18 00:08 ibuprofen [From Motrin] Allergy RASH Verified 04/29/18 00:08 Penicillins Allergy RASH Verified 04/29/18 00:08 - Medications Medications: Current Medications Vancomycin HCl 1,000 mg/ (Sodium Chloride) 250 mls @ 250 mls/hr IVPB ONCE ONE; Protocol Stop: 04/29/18 02:33 Ketorolac Tromethamine (Toradol) 15 mg IVP ONCE ONE Stop: 04/29/18 00:41 Physical Exam - Constitutional Appears: Non-toxic, No Acute Distress - Head Exam Head Exam: ATRAUMATIC - Eye Exam Eye Exam: EOMI. absent: Scleral icterus - ENT Exam ENT Exam: Mucous Membranes Moist - Neck Exam Neck exam: Negative for: Lymphadenopathy Additional comments: appears to be infected sebaceous cyst. Small area of fluctuance area of induration surrounding the cyst measuring approx 8cm. mildly erythematous, minimally tender - Respiratory Exam Respiratory Exam: Prolonged Expiratory Phase, Wheezes. absent: Accessory Muscle Use, Respiratory Distress - Cardiovascular Exam Cardiovascular Exam: REGULAR RHYTHM, +S1, +S2. absent: Bradycardia, Tachycardia - GI/Abdominal Exam GI & Abdominal Exam: Soft. absent: Distended, Firm, Guarding, Rigid, Tenderness - Extremities Exam Extremities exam: Positive for: pedal edema (bilateral), pedal pulses present - Neurological Exam Neurological exam: Alert, Oriented x3 - Skin Skin Exam: Warm Additional comments: appears to be infected sebaceous cyst. Small area of fluctuance area of i nduration surrounding the cyst measuring approx 8cm. mildly erythematous, minimally tende Results - Vital Signs Recent Vital Signs: Last Vital Signs Temp 98.3 F 04/29/18 00:05 Pulse 85 04/29/18 00:05 Resp 16 04/29/18 00:05 BP 154/76 H 04/29/18 00:05 Pulse Ox 94 L 04/29/18 01:19 EDT Assessment & Plan - Assessment and Plan (Free Text) Assessment: 77F w/ infected sebaceous cyst and abscess on the neck Plan: - ABx - warm compresses to the area - will re-evaluate in the AM for possible bedside I&D w/ packing - will d[facility] <Israel Tyson - Last Filed: 04/29/18 12:40> History of Present Illness - History of Present Illness History of Present Illness: Patient was seen and examined at the bedside. Agree with resident's note above. Meds - Medications Medications: Current Medications Acetaminophen (Tylenol 325mg Tab) 650 mg PO Q6 PRN PRN Reason: Pain, moderate (4-7) Albuterol/Ipratropium (Duoneb 3 Mg/0.5 Mg (3 Ml) Ud) 3 ml INH RQ4 [facility] Last Admin: 04/29/18 11:12 Dose: 3 ml HCTZ/Losartan Potassium (Hyzaar 12.5 Mg-50 Mg) 2 tab PO DAILY [facility] Last Admin: 04/29/18 10:30 Dose: 2 tab Home Med (Cyclosporine [Restasis]) 1 drop OU Q12 [facility] Vancomycin HCl 1 gm/ Sodium (Chloride) 250 mls @ 166.667 mls/hr IVPB Q12 [facility]; Protocol Sodium Chloride (Sodium Chloride 0.9%) 1,000 mls @ 150 mls/hr IV .Q6H40M [facility] Stop: 04/30/18 12:29 Insulin Detemir (Levemir) 40 units SC HS [facility] Insulin Detemir (Levemir) 45 units SC QAM [facility] Insulin Human Regular (Humulin R) 0 units SC ACHS [facility]; Protocol Last Admin: 04/29/18 11:18 Dose: 10 units Metformin HCl (Glucophage) 1,000 mg PO BIDWM [facility] Last Admin: 04/29/18 10:29 Dose: 1,000 mg Promethazine HCl/Codeine (Phenergan/Codeine Oral Syrup) 10 ml PO Q6 PRN PRN Reason: Cough Last Admin: 04/29/18 12:28 Dose: 10 ml Sertraline HCl (Zoloft) 25 mg PO DAILY [facility] Last Admin: 04/29/18 10:30 Dose: 25 mg Sitagliptin Phosphate (Januvia) 100 mg PO DAILY [facility] Last Admin: 04/29/18 10:29 Dose: 100 mg Tiotropium [place] (Spiriva) 18 mcg IH DAILY [facility] Last Admin: 04/29/18 10:37 Dose: 18 mcg Results - Vital Signs Recent Vital Signs: Last Vital Signs Temp 97.8 F 04/29/18 09:00 Pulse 76 04/29/18 09:00 Resp 20 04/29/18 09:00 BP 147/70 04/29/18 09:00 Pulse Ox 96 04/29/18 09:00 - Labs Result Diagrams: 04/29/18 01:16 EST 04/29/18 01:16 EST Labs: Laboratory Results - last 24 hr 04/29/18 04/29/18 04/29/18 01:16 EST 01:16 EST 01:16 EST WBC 7.5 RBC 4.56 Hgb 12.7 Hct 38.7 MCV 85.0 MCH 27.9 MCHC 32.8 L RDW 13.1 Plt Count 106 L MPV 9.9 Neut % (Auto) 53.6 Lymph % (Auto) 32.0 [place] % (Auto) 10.9 H Eos % (Auto) 2.7 Baso % (Auto) 0.8 Neut # (Auto) 4.0 Lymph # (Auto) 2.4 [place] # (Auto) 0.8 Eos # (Auto) 0.2 Baso # (Auto) 0.1 Sodium 131 L Potassium 4.0 Chloride 90 L Carbon Dioxide 30 Anion Gap 15 BUN 19 H Creatinine 1.0 Est GFR ( Amer) > 60 Est GFR (Non-Af Amer) 54 POC Glucose (mg/dL) Random Glucose 566 H* Lactic Acid Calcium 9.0 Total Bilirubin 0.5 AST 23 ALT 26 Alkaline Phosphatase 121 Troponin I < 0.0120 NT-Pro-B Natriuret Pep 74.8 Total Protein 7.2 Albumin 3.6 Globulin 3.6 Albumin/Globulin Ratio 1.0 Urine Color Urine Clarity Urine pH Ur Specific [place] Urine Protein Urine Glucose (UA) Urine Ketones Urine Blood Urine Nitrate Urine Bilirubin Urine Urobilinogen Ur Leukocyte Esterase Urine RBC (Auto) Urine Microscopic WBC Ur Squamous Epith Cells Influenza Typ A,B (EIA) Negative for flu a/b 18 18 18 01:16 EST 01:16 EST 01:32 EST WBC RBC Hgb Hct MCV MCH MCHC RDW Plt Count MPV Neut % (Auto) Lymph % (Auto) [place] % (Auto) Eos % (Auto) Baso % (Auto) Neut # (Auto) Lymph # (Auto) [place] # (Auto) Eos # (Auto) Baso # (Auto) Sodium Potassium Chloride Carbon Dioxide Anion Gap BUN Creatinine Est GFR ( Amer) Est GFR (Non-Af Amer) POC Glucose (mg/dL) > 500 H* Random Glucose Lactic Acid 1.8 Calcium Total Bilirubin AST ALT Alkaline Phosphatase Troponin I NT-Pro-B Natriuret Pep Total Protein Albumin Globulin Albumin/Globulin Ratio Urine Color Straw Urine Clarity Clear Urine pH 6.0 Ur Specific [place] 1.025 Urine Protein 30 Urine Glucose (UA) >=500 Urine Ketones Negative Urine Blood Small Urine Nitrate Negative Urine Bilirubin Negative Urine Urobilinogen 0.2-1.0 Ur Leukocyte Esterase Trace Urine RBC (Auto) 1 Urine Microscopic WBC < 1 Ur Squamous Epith Cells < 1 Influenza Typ A,B (EIA) 04/29/18 04/29/18 04/29/18 02:18 04:53 11:10 WBC RBC Hgb Hct MCV MCH MCHC RDW Plt Count MPV Neut % (Auto) Lymph % (Auto) [place] % (Auto) Eos % (Auto) Baso % (Auto) Neut # (Auto) Lymph # (Auto) [place] # (Auto) Eos # (Auto) Baso # (Auto) Sodium Potassium Chloride Carbon Dioxide Anion Gap BUN Creatinine Est GFR ( Amer) Est GFR (Non-Af Amer) POC Glucose (mg/dL) 430 H* 337 H 492 H* Random Glucose Lactic Acid Calcium Total Bilirubin AST ALT Alkaline Phosphatase Troponin I NT-Pro-B Natriuret Pep Total Protein Albumin Globulin Albumin/Globulin Ratio Urine Color Urine Clarity Urine pH Ur Specific [place] Urine Protein Urine Glucose (UA) Urine Ketones Urine Blood Urine Nitrate Urine Bilirubin Urine Urobilinogen Ur Leukocyte Esterase Urine RBC (Auto) Urine Microscopic WBC Ur Squamous Epith Cells Influenza Typ A,B (EIA)
[2018-04-29 01:44] LABS: BASO # 0.1 K/uL (0.0-0.2); BASO % 0.8 % (0.0-2.0); EOS # 0.2 K/uL (0.0-0.7); EOS % 2.7 % (0.0-4.0); HEMOGLOBIN 12.7 g/dL (12.0-16.0); LYMPH # 2.4 K/uL (1.0-4.3); MEAN CORPUSCULAR HEMOGLOBIN 27.9 pg (27.0-31.0); MEAN CORPUSCULAR HGB CONC 32.8 g/dL (33.0-37.0); MEAN PLATELET VOLUME 9.9 fl (7.2-11.7); MONO # 0.8 K/uL (0.0-0.8); MONO % 10.9 % (0.0-10.0); NEUT % 53.6 % (50.0-75.0); RBC 4.56 Mil/uL (3.80-5.20); RED CELL DISTRIBUTION WIDTH 13.1 % (11.5-14.5); WHITE BLOOD COUNT 7.5 K/uL (4.8-10.8)
[2018-04-29 01:49] LABS: SQUAMOUS EPITHIAL < 1 /hpf (0-5); URINE BILIRUBIN NEGATIVE (NEGATIVE); URINE BLOOD SMALL (NEGATIVE); URINE CLARITY CLEAR (Clear); URINE COLOR STRAW (YELLOW); URINE GLUCOSE (UA) >=500 mg/dL (Normal); URINE LEUKOCYTE ESTERASE TRACE Leu/uL (Negative); URINE PROTEIN 30 mg/dL (NEGATIVE); URINE UROBILINOGEN 0.2-1.0 mg/dL (0.2-1.0)
[2018-04-29] MEDS ORDERED: Vancomycin 1 g Inj ONE (01:49)
[2018-04-29] MEDS ORDERED: Sodium Chloride 0.9% 500 ML IV STA (02:22)
[2018-04-29] MEDS ORDERED: levoFLOXacin 500 mg in D5W 500 MG/100 ML BAG IVPB STA (02:22)
[2018-04-29] MEDS ORDERED: Insulin Regular 100 units/ml ONE (02:26)
[2018-04-29] MEDS ORDERED: levoFLOXacin 500 mg in D5W 500 MG/100 ML BAG IVPB ONE (03:09)
[2018-04-29] MEDS ORDERED: guaiFENesin-DM 600-30 mg ER Tab PO ONE (04:39)
[2018-04-29] MEDS ORDERED: Albuterol-Ipratrop 3 mg / 0.5 (3 ml) UD INH ONE (05:00)
[2018-04-29] MEDS ORDERED: Acetylcysteine 10% 4 ML IH ONE (05:00)
[2018-04-29] MEDS: Albuterol-Ipratrop 3 mg / 0.5 (3 ml) UD INH SCH ×5 (08:31→23:44)
--- NOTE | 2018-04-29 08:52 | RAD ---
Date of service: 04/29/2018 HISTORY: chest pain COMPARISON: No prior. FINDINGS: LUNGS: No active pulmonary disease. PLEURA: No significant pleural effusion identified, no pneumothorax apparent. CARDIOVASCULAR: No aortic atherosclerotic calcification present. Normal cardiac size. No pulmonary vascular congestion. OSSEOUS STRUCTURES: No significant abnormalities. VISUALIZED UPPER ABDOMEN: Normal. OTHER FINDINGS: None. IMPRESSION: No active disease.
[2018-04-29] MEDS ORDERED: Patient's Own Med (Cyclosporine [Restasis] 1 DROP) OU SCH (09:00)
--- NOTE | 2018-04-29 09:24 | CARD ---
APPROVED REPORT Date of service: 04/29/2018 EKG Measurement Heart [id number] <Conclusion> Normal sinus rhythm Nonspecific T wave abnormality Abnormal ECG
[2018-04-29] MEDS: HCTZ/Losartan 12.5/50 Tab PO SCH (10:30)
--- NOTE | 2018-04-29 10:31 | PCM.PROC ---
- Incision & Drainage Of Abscess Anesthesia: Lidocaine 1% Prep Used: Betadine Procedure: Incised W/Scalpel Blade#: (11), Drained Pus, Irrigated Cavity W/Saline, Probed To Break Up Loculations, Packed W/Gauze, Cultures Obtained And Sent To Lab
[2018-04-29] MEDS: Tiotropium 18 mcg Cap For Inhalation IH SCH (10:37)
[2018-04-29] MEDS: Insulin Regular 100 units/ml SC SCH ×2 (11:18→16:51)
[2018-04-29] MEDS: Promethazine/Cod 6.25mg-10mg/5ml Syr UD PO PRN (12:28)
--- NOTE | 2018-04-29 14:01 | CP.PCM.CON ---
History of Present Illness - History of Present Illness History of Present Illness: 77F presents to [facility] ED with continued shortness of breath, productive cough, and worsening pain in the back of her neck that has been ongoing for 2 weeks. Patient was seen by surgery and I and D done patient is homeless PMH: DM Asthma , CHF PSH: Denies ALL: NKDA SocialHx: denies hx of tobacco use, etoh, recreational drug use. Patient is homeless and lives out of [place] Review of Systems - Review of Systems All systems: reviewed and no additional remarkable complaints except - Constitutional Constitutional: As Per HPI - EENT Eyes: absent: As Per HPI, Blind Spots, Blurred Vision, Change in Vision, Decreased Night Vision, Diplopia, Discharge, Dry Eye, Exophthalmos, Floaters, Irritation, Itchy Eyes, Loss of Peripheral Vision, Pain, Photophobia, Requires Corrective Lenses, Sees Flashes, Spots in Vision, Tunnel Vision, Other Visual Disturbances, Loss of Vision, Other Ears: absent: As Per HPI, Decreased Hearing, Ear Discharge, Ear Pain, Tinnitus, Abnormal Hearing, Disequilibrium, Dizziness, Other Nose/Mouth/Throat: absent: As Per HPI, Epistaxis, Nasal Congestion, Nasal Discharge, Nasal Obstruction, Nasal Trauma, Nose Pain, Post Nasal Drip, Sinus Pain, Sinus Pressure, Bleeding Gums, Change in Voice, Dental Pain, Dry Mouth, Dysphagia, Halitosis, Hoarsness, Lip Swelling, Mouth Lesions, Mouth Pain, Odynophagia, Sore Throat, Throat Swelling, Tongue Swelling, Facial Pain, Neck Pain, Neck Mass, Other - Breasts Breasts: absent: As Per HPI, Change in Shape, Mass, Pain, Nipple Discharge, Nipple Inversion, Skin Changes, Swelling, Other - Cardiovascular Cardiovascular: absent: As Per HPI, Acrocyanosis, Chest Pain, Chest Pain at Rest, Chest Pain with Activity, Claudication, Diaphoresis, Dyspnea, Dyspnea on Exertion, Edema, Irregular Heart Rhythm, Pain Radiating to Arm/Neck/Jaw, Leg Edema, Leg Ulcers, Lightheadedness, Orthopnea, Palpitations, Paroxysmal Nocturnal Dyspnea, Pedal Edema, Radiating Pain, Rapid Heart Rate, Slow Heart Rate, Syncope, Other - Respiratory Respiratory: As Per HPI - Gastrointestinal Gastrointestinal: absent: As Per HPI, Abdominal Pain, Belching, Bloating, Change in Bowel Habits, Change in Stool Character, Coffee Ground Emesis, Constipation, Cramping, Diarrhea, Dyspepsia, Dysphagia, Early Satiety, Excessive Flatus, Fecal Incontinence, Heartburn, Hematemesis, Hematochezia, Loose Stools, Melena, Nausea, Odynophagia, Temesmus, Vomiting, Other - Genitourinary Genitourinary: absent: As Per HPI, Change in Urinary Stream, Difficulty Urinating, Dysuria, Flank Pain, Hematuria, Pyuria, Nocturia, Urinary Incontinence, Urinary Frequency, Urinary Hesitance, Urinary Urgency, Voiding Freq/Small Amts, Freq UTI, Hx Renal/Bladder Calculi, Hx /Renal Surgery, Bladder Distension, Other - Reproductive: Female Reproductive:Female: absent: As Per HPI, Amenorrhea, Amenorrhea/ Control, Currently Menstual, Cycle <21 Days, Cycle >35 Days, Cycle Variable, Menses 1-7 Days, Menses >/= 8 Days, Menses Variable, Cycle > 4 Weeks Between, No Menses for 6 Months, Heavy Menses, Light Menses, Normal Menses, Spotting Between Cycles, S/P Hysterectomy, Menopausal, Post Menopausal, Premenarche, Abnormal Vaginal Bleeding, Dysmenorrhea, Dyspareunia, Genital Lesions, Genital Pruritis, Pelvic Pain, Prolapse Symptoms, Sexual Dysfunction, Vaginal Discharge, Vaginal Dryness, Vaginal Odor, Vaginal Pruritis, Other - Menstruation Menstruation: absent: As Per HPI, Amenorrhea, Amenorrhea/ Control, Currently Menstual, Cycle <21 Days, Cycle >35 Days, Cycle Variable, Menses 1-7 Days, Menses >/= 8 Days, Menses Variable, Cycle > 4 Weeks Between, No Menses for 6 Months, Heavy Menses, Light Menses, Normal Menses, Spotting Between Cycles, S/P Hysterectomy, Menopausal, Post Menopausal, Premenarche, Abnormal Vaginal Bleeding, Dysmenorrhea, Other - Musculoskeletal Musculoskeletal: As Per HPI - Integumentary Integumentary: As Per HPI, Skin Pain, Wounds - Neurological Neurological: absent: As Per HPI, Abnormal Gait, Abnormal Hearing, Abnormal Movements, Abnormal Speech, Behavioral Changes, Burning Sensations, Confusion, Convulsions, Disequilibrium, Dizziness, Numbness, Focal Weakness, Frequent Falls, Headaches, Lack of Coordination, Loss of Vision, Memory Loss, Paresthesias, Radicular Pain, Restless Legs, Sensory Deficit, Syncope, Tingling, Tremor, Vertigo, Weakness, Other Visual Disturbances, Other - Psychiatric Psychiatric: absent: As Per HPI, Abnormal Sleep Pattern, Anhedonia, Anxiety, Auditory Hallucinations, Behavioral Changes, Change in Appetite, Change in Libido, Confusion, Depression, Difficulty Concentrating, Hallucinations, Homicidal Ideation, Hopelessness, Irritability, Memory Loss, Mood Swings, Panic Attacks, Paranoia, Suicidal Ideation, Visual Hallucinations, Tactile Hallucinations, Other - Endocrine Endocrine: absent: As Per HPI, Change in Body Appearance, Change in Libido, Cold Intolorance, Deepening of Voice, Excessive Sweating, Fatigue, Flushing, Heat Intolorance, Increase in Ring/Shoe/Hat Size, Palpitations, Polydipsia, Polyphagia, Polyuria, Other - Hematologic/Lymphatic Hematologic: absent: As Per HPI, Easy Bleeding, Easy Bruising, Lymphadenopathy, Other Past Patient History - Infectious Disease Hx of Infectious Diseases: None - Past Medical History & Family History Past Medical History?: Yes - Past Social History Smoking Status: Never Smoked - CARDIAC Hx Cardiac Disorders: Yes Hx Angina: Yes Hx Congestive Heart Failure: Yes Hx Hypercholesterolemia: Yes Hx Hypertension: Yes Hx Peripheral Edema: Yes Other/Comment: + varicose veins BLE - PULMONARY Hx Respiratory Disorders: Yes Hx Asthma: Yes Hx Chronic Obstructive Pulmonary Disease (COPD): Yes - NEUROLOGICAL Hx Neurological Disorder: No - HEENT Hx HEENT Problems: Yes Hx Cataracts: Yes - RENAL Hx Chronic Kidney Disease: No - ENDOCRINE/METABOLIC Hx Endocrine Disorders: Yes Hx Diabetes Mellitus Type 2: Yes - HEMATOLOGICAL/ONCOLOGICAL Hx Blood Disorders: No Hx AIDS: No Hx Human Immunodeficiency Virus (HIV): No - INTEGUMENTARY Hx Dermatological Problems: No - MUSCULOSKELETAL/RHEUMATOLOGICAL Hx Musculoskeletal Disorders: Yes Hx Back Pain: Yes Hx Falls: Yes - GASTROINTESTINAL Hx Gastrointestinal Disorders: Yes Hx Constipation: Yes Hx Gastroesophageal Reflux: Yes - GENITOURINARY/GYNECOLOGICAL Hx Genitourinary Disorders: No - PSYCHIATRIC Hx Psychophysiologic Disorder: No Hx Substance Use: No - SURGICAL HISTORY Hx Surgeries: Yes Hx Cataract Extraction: Yes Hx Cholecystectomy: Yes Hx Hysterectomy: Yes Other/Comment: Left ear surgery 2ry to infection - ANESTHESIA Hx Anesthesia: Yes Hx Anesthesia Reactions: No Hx Malignant Hyperthermia: No Has any member of the family had a problem w/ anesthesia?: No Meds Allergies/Adverse Reactions: Allergies Allergy/AdvReac Type Severity Reaction Status Date / Time celecoxib [From Celebrex] Allergy RASH Verified 04/29/18 00:08 ibuprofen [From Motrin] Allergy RASH Verified 04/29/18 00:08 Penicillins Allergy RASH Verified 04/29/18 00:08 - Medications Medications: Current Medications Acetaminophen (Tylenol 325mg Tab) 650 mg PO Q6 PRN PRN Reason: Pain, moderate (4-7) Albuterol/Ipratropium (Duoneb 3 Mg/0.5 Mg (3 Ml) Ud) 3 ml INH RQ4 [facility] Last Admin: 04/29/18 11:12 Dose: 3 ml HCTZ/Losartan Potassium (Hyzaar 12.5 Mg-50 Mg) 2 tab PO DAILY [facility] Last Admin: 04/29/18 10:30 Dose: 2 tab Home Med (Cyclosporine [Restasis]) 1 drop OU Q12 [facility] Vancomycin HCl 1 gm/ Sodium (Chloride) 250 mls @ 166.667 mls/hr IVPB Q12 [facility]; Protocol Sodium Chloride (Sodium Chloride 0.9%) 1,000 mls @ 150 mls/hr IV .Q6H40M [facility] Stop: 04/30/18 12:29 Insulin Detemir (Levemir) 40 units SC HS [facility] Insulin Detemir (Levemir) 45 units SC QAM [facility] Insulin Human Regular (Humulin R) 0 units SC ACHS [facility]; Protocol Last Admin: 04/29/18 11:18 Dose: 10 units Metformin HCl (Glucophage) 1,000 mg PO BIDWM [facility] Last Admin: 04/29/18 10:29 Dose: 1,000 mg Promethazine HCl/Codeine (Phenergan/Codeine Oral Syrup) 10 ml PO Q6 PRN PRN Reason: Cough Last Admin: 04/29/18 12:28 Dose: 10 ml Sertraline HCl (Zoloft) 25 mg PO DAILY [facility] Last Admin: 04/29/18 10:30 Dose: 25 mg Sitagliptin Phosphate (Januvia) 100 mg PO DAILY [facility] Last Admin: 04/29/18 10:29 Dose: 100 mg Tiotropium [place] (Spiriva) 18 mcg IH DAILY [facility] Last Admin: 04/29/18 10:37 Dose: 18 mcg Physical Exam - Constitutional Appears: Non-toxic, No Acute Distress, Chronically Ill - Head Exam Head Exam: NORMOCEPHALIC - Eye Exam Eye Exam: absent: Scleral icterus - ENT Exam ENT Exam: Mucous Membranes Dry, Normal External Ear Exam - Neck Exam Neck exam: Negative for: Lymphadenopathy - Respiratory Exam Respiratory Exam: Decreased Breath Sounds, Prolonged Expiratory Phase, Rhonchi - Cardiovascular Exam Cardiovascular Exam: REGULAR RHYTHM, +S1, +S2 - GI/Abdominal Exam GI & Abdominal Exam: Diminished Bowel Sounds, Soft. absent: Tenderness - Rectal Exam Rectal Exam: Deferred - Exam Exam: NORMAL INSPECTION - Extremities Exam Extremities exam: Positive for: pedal pulses present. Negative for: calf tenderness, pedal edema, tenderness - Back Exam Back exam: absent: CVA tenderness (L), CVA tenderness (R) - Neurological Exam Neurological exam: Alert, CN II-XII Intact, Oriented x3, Reflexes Normal - Psychiatric Exam Psychiatric exam: Depressed - Skin Skin Exam: Dry Additional comments: wound with draibn in place over cervical spine area + cellulitis Results - Vital Signs Recent Vital Signs: Last Vital Signs Temp 97.8 F 04/29/18 09:00 Pulse 76 04/29/18 09:00 Resp 20 04/29/18 09:00 BP 147/70 04/29/18 09:00 Pulse Ox 96 04/29/18 09:00 - Labs Result Diagrams: 04/29/18 01:16 EST 04/29/18 01:16 EST Labs: Laboratory Results - last 24 hr 04/29/18 04/29/18 04/29/18 01:16 EST 01:16 EST 01:16 EST WBC 7.5 RBC 4.56 Hgb 12.7 Hct 38.7 MCV 85.0 MCH 27.9 MCHC 32.8 L RDW 13.1 Plt Count 106 L MPV 9.9 Neut % (Auto) 53.6 Lymph % (Auto) 32.0 [place] % (Auto) 10.9 H Eos % (Auto) 2.7 Baso % (Auto) 0.8 Neut # (Auto) 4.0 Lymph # (Auto) 2.4 [place] # (Auto) 0.8 Eos # (Auto) 0.2 Baso # (Auto) 0.1 Sodium 131 L Potassium 4.0 Chloride 90 L Carbon Dioxide 30 Anion Gap 15 BUN 19 H Creatinine 1.0 Est GFR ( Amer) > 60 Est GFR (Non-Af Amer) 54 POC Glucose (mg/dL) Random Glucose 566 H* Lactic Acid Calcium 9.0 Total Bilirubin 0.5 AST 23 ALT 26 Alkaline Phosphatase 121 Troponin I < 0.0120 NT-Pro-B Natriuret Pep 74.8 Total Protein 7.2 Albumin 3.6 Globulin 3.6 Albumin/Globulin Ratio 1.0 Urine Color Urine Clarity Urine pH Ur Specific [place] Urine Protein Urine Glucose (UA) Urine Ketones Urine Blood Urine Nitrate Urine Bilirubin Urine Urobilinogen Ur Leukocyte Esterase Urine RBC (Auto) Urine Microscopic WBC Ur Squamous Epith Cells Influenza Typ A,B (EIA) Negative for flu a/b 04/29/18 04/29/18 04/29/18 01:16 EST 01:16 EST 01:32 EST WBC RBC Hgb Hct MCV MCH MCHC RDW Plt Count MPV Neut % (Auto) Lymph % (Auto) [place] % (Auto) Eos % (Auto) Baso % (Auto) Neut # (Auto) Lymph # (Auto) [place] # (Auto) Eos # (Auto) Baso # (Auto) Sodium Potassium Chloride Carbon Dioxide Anion Gap BUN Creatinine Est GFR ( Amer) Est GFR (Non-Af Amer) POC Glucose (mg/dL) > 500 H* Random Glucose Lactic Acid 1.8 Calcium Total Bilirubin AST ALT Alkaline Phosphatase Troponin I NT-Pro-B Natriuret Pep Total Protein Albumin Globulin Albumin/Globulin Ratio Urine Color Straw Urine Clarity Clear Urine pH 6.0 Ur Specific [place] 1.025 Urine Protein 30 Urine Glucose (UA) >=500 Urine Ketones Negative Urine Blood Small Urine Nitrate Negative Urine Bilirubin Negative Urine Urobilinogen 0.2-1.0 Ur Leukocyte Esterase Trace Urine RBC (Auto) 1 Urine Microscopic WBC < 1 Ur Squamous Epith Cells < 1 Influenza Typ A,B (EIA) 04/29/18 04/29/18 04/29/18 02:18 04:53 11:10 WBC RBC Hgb Hct MCV MCH MCHC RDW Plt Count MPV Neut % (Auto) Lymph % (Auto) [place] % (Auto) Eos % (Auto) Baso % (Auto) Neut # (Auto) Lymph # (Auto) [place] # (Auto) Eos # (Auto) Baso # (Auto) Sodium Potassium Chloride Carbon Dioxide Anion Gap BUN Creatinine Est GFR ( Amer) Est GFR (Non-Af Amer) POC Glucose (mg/dL) 430 H* 337 H 492 H* Random Glucose Lactic Acid Calcium Total Bilirubin AST ALT Alkaline Phosphatase Troponin I NT-Pro-B Natriuret Pep Total Protein Albumin Globulin Albumin/Globulin Ratio Urine Color Urine Clarity Urine pH Ur Specific [place] Urine Protein Urine Glucose (UA) Urine Ketones Urine Blood Urine Nitrate Urine Bilirubin Urine Urobilinogen Ur Leukocyte Esterase Urine RBC (Auto) Urine Microscopic WBC Ur Squamous Epith Cells Influenza Typ A,B (EIA) Assessment & Plan (1) Abscess Status: Acute (2) Cellulitis Status: Acute (3) Diabetes mellitus with hyperglycemia Status: Acute - Assessment and Plan (Free Text) Assessment: s/p I and D for abscess likely staph or strep copnt iv rx wound care
[2018-04-29] MEDS: Sodium Chloride 0.9% 1,000 ML IV SCH ×3 (14:48→21:38)
--- NOTE | 2018-04-29 18:45 | CP.PCM.HP ---
History of Present Illness - History of Present Illness History of Present Illness: 77 yo homeless female w/ PMHx for DM, HTN admitted due to neck abscess. Patient states has been painful and growing x 2 weeks. occasionally with discharge. patient had I&D completed states pain controlled. no other complaints at this time. Present on Admission - Present on Admission Any Indicators Present on Admission: Yes History of Uncontrolled Diabetes: Yes Review of Systems - Review of Systems All systems: reviewed and no additional remarkable complaints except (mentioned above) Past Patient History - Infectious Disease Hx of Infectious Diseases: None - Past Medical History & Family History Past Medical History?: Yes - Past Social History Smoking Status: Never Smoked - CARDIAC Hx Cardiac Disorders: Yes Hx Angina: Yes Hx Congestive Heart Failure: Yes Hx Hypercholesterolemia: Yes Hx Hypertension: Yes Hx Peripheral Edema: Yes Other/Comment: + varicose veins BLE - PULMONARY Hx Respiratory Disorders: Yes Hx Asthma: Yes Hx Chronic Obstructive Pulmonary Disease (COPD): Yes - NEUROLOGICAL Hx Neurological Disorder: No - HEENT Hx HEENT Problems: Yes Hx Cataracts: Yes - RENAL Hx Chronic Kidney Disease: No - ENDOCRINE/METABOLIC Hx Endocrine Disorders: Yes Hx Diabetes Mellitus Type 2: Yes - HEMATOLOGICAL/ONCOLOGICAL Hx Blood Disorders: No Hx AIDS: No Hx Human Immunodeficiency Virus (HIV): No - INTEGUMENTARY Hx Dermatological Problems: No - MUSCULOSKELETAL/RHEUMATOLOGICAL Hx Musculoskeletal Disorders: Yes Hx Back Pain: Yes Hx Falls: Yes - GASTROINTESTINAL Hx Gastrointestinal Disorders: Yes Hx Constipation: Yes Hx Gastroesophageal Reflux: Yes - GENITOURINARY/GYNECOLOGICAL Hx Genitourinary Disorders: No - PSYCHIATRIC Hx Psychophysiologic Disorder: No Hx Substance Use: No - SURGICAL HISTORY Hx Surgeries: Yes Hx Cataract Extraction: Yes Hx Cholecystectomy: Yes Hx Hysterectomy: Yes Other/Comment: Left ear surgery 2ry to infection - ANESTHESIA Hx Anesthesia: Yes Hx Anesthesia Reactions: No Hx Malignant Hyperthermia: No Has any member of the family had a problem w/ anesthesia?: No Meds Allergies/Adverse Reactions: Allergies Allergy/AdvReac Type Severity Reaction Status Date / Time celecoxib [From Celebrex] Allergy RASH Verified 04/29/18 00:08 ibuprofen [From Motrin] Allergy RASH Verified 04/29/18 00:08 Penicillins Allergy RASH Verified 04/29/18 00:08 Physical Exam - Head Exam Head Exam: NORMAL INSPECTION - Eye Exam Eye Exam: Normal appearance - Neck Exam Additional comments: wound covered by dressing, c/d/i - Respiratory Exam Respiratory Exam: NORMAL BREATHING PATTERN - Cardiovascular Exam Cardiovascular Exam: +S1, +S2 - GI/Abdominal Exam GI & Abdominal Exam: Normal Bowel Sounds, Soft - Neurological Exam Neurological exam: Alert, Oriented x3 - Psychiatric Exam Psychiatric exam: Normal Affect, Normal Mood - Skin Skin Exam: Normal Color, Warm Results - Vital Signs Recent Vital Signs: Last Vital Signs Temp 97.6 F 04/29/18 17:08 Pulse 87 04/29/18 17:08 Resp 20 04/29/18 17:08 BP 144/60 04/29/18 17:08 Pulse Ox 95 04/29/18 17:08 - Labs Result Diagrams: 04/30/18 09:03 04/30/18 09:03 Labs: Laboratory Results - last 24 hr 04/29/18 04/29/18 04/29/18 01:16 EST 01:16 EST 01:16 EST WBC 7.5 RBC 4.56 Hgb 12.7 Hct 38.7 MCV 85.0 MCH 27.9 MCHC 32.8 L RDW 13.1 Plt Count 106 L MPV 9.9 Neut % (Auto) 53.6 Lymph % (Auto) 32.0 [place] % (Auto) 10.9 H Eos % (Auto) 2.7 Baso % (Auto) 0.8 Neut # (Auto) 4.0 Lymph # (Auto) 2.4 [place] # (Auto) 0.8 Eos # (Auto) 0.2 Baso # (Auto) 0.1 Sodium 131 L Potassium 4.0 Chloride 90 L Carbon Dioxide 30 Anion Gap 15 BUN 19 H Creatinine 1.0 Est GFR ( Amer) > 60 Est GFR (Non-Af Amer) 54 POC Glucose (mg/dL) Random Glucose 566 H* Lactic Acid Calcium 9.0 Total Bilirubin 0.5 AST 23 ALT 26 Alkaline Phosphatase 121 Troponin I < 0.0120 NT-Pro-B Natriuret Pep 74.8 Total Protein 7.2 Albumin 3.6 Globulin 3.6 Albumin/Globulin Ratio 1.0 Urine Color Urine Clarity Urine pH Ur Specific [place] Urine Protein Urine Glucose (UA) Urine Ketones Urine Blood Urine Nitrate Urine Bilirubin Urine Urobilinogen Ur Leukocyte Esterase Urine RBC (Auto) Urine Microscopic WBC Ur Squamous Epith Cells Influenza Typ A,B (EIA) Negative for flu a/b 04/29/18 04/29/18 04/29/18 01:16 EST 01:16 EST 01:32 EST WBC RBC Hgb Hct MCV MCH MCHC RDW Plt Count MPV Neut % (Auto) Lymph % (Auto) [place] % (Auto) Eos % (Auto) Baso % (Auto) Neut # (Auto) Lymph # (Auto) [place] # (Auto) Eos # (Auto) Baso # (Auto) Sodium Potassium Chloride Carbon Dioxide Anion Gap BUN Creatinine Est GFR ( Amer) Est GFR (Non-Af Amer) POC Glucose (mg/dL) > 500 H* Random Glucose Lactic Acid 1.8 Calcium Total Bilirubin AST ALT Alkaline Phosphatase Troponin I NT-Pro-B Natriuret Pep Total Protein Albumin Globulin Albumin/Globulin Ratio Urine Color Straw Urine Clarity Clear Urine pH 6.0 Ur Specific [place] 1.025 Urine Protein 30 Urine Glucose (UA) >=500 Urine Ketones Negative Urine Blood Small Urine Nitrate Negative Urine Bilirubin Negative Urine Urobilinogen 0.2-1.0 Ur Leukocyte Esterase Trace Urine RBC (Auto) 1 Urine Microscopic WBC < 1 Ur Squamous Epith Cells < 1 Influenza Typ A,B (EIA) 04/29/18 04/29/18 04/29/18 02:18 04:53 11:10 WBC RBC Hgb Hct MCV MCH MCHC RDW Plt Count MPV Neut % (Auto) Lymph % (Auto) [place] % (Auto) Eos % (Auto) Baso % (Auto) Neut # (Auto) Lymph # (Auto) [place] # (Auto) Eos # (Auto) Baso # (Auto) Sodium Potassium Chloride Carbon Dioxide Anion Gap BUN Creatinine Est GFR ( Amer) Est GFR (Non-Af Amer) POC Glucose (mg/dL) 430 H* 337 H 492 H* Random Glucose Lactic Acid Calcium Total Bilirubin AST ALT Alkaline Phosphatase Troponin I NT-Pro-B Natriuret Pep Total Protein Albumin Globulin Albumin/Globulin Ratio Urine Color Urine Clarity Urine pH Ur Specific [place] Urine Protein Urine Glucose (UA) Urine Ketones Urine Blood Urine Nitrate Urine Bilirubin Urine Urobilinogen Ur Leukocyte Esterase Urine RBC (Auto) Urine Microscopic WBC Ur Squamous Epith Cells Influenza Typ A,B (EIA) 04/29/18 16:48 WBC RBC Hgb Hct MCV MCH MCHC RDW Plt Count MPV Neut % (Auto) Lymph % (Auto) [place] % (Auto) Eos % (Auto) Baso % (Auto) Neut # (Auto) Lymph # (Auto) [place] # (Auto) Eos # (Auto) Baso # (Auto) Sodium Potassium Chloride Carbon Dioxide Anion Gap BUN Creatinine Est GFR ( Amer) Est GFR (Non-Af Amer) POC Glucose (mg/dL) 332 H Random Glucose Lactic Acid Calcium Total Bilirubin AST ALT Alkaline Phosphatase Troponin I NT-Pro-B Natriuret Pep Total Protein Albumin Globulin Albumin/Globulin Ratio Urine Color Urine Clarity Urine pH Ur Specific [place] Urine Protein Urine Glucose (UA) Urine Ketones Urine Blood Urine Nitrate Urine Bilirubin Urine Urobilinogen Ur Leukocyte Esterase Urine RBC (Auto) Urine Microscopic WBC Ur Squamous Epith Cells Influenza Typ A,B (EIA) Assessment & Plan - Assessment and Plan (Free Text) Assessment: w/ PMHx for DM, HTN admitted with infected sebaceous cyst and abscess on the neck plan c/w IV abx surgery following consult ID consult endocrinology monitor BS, control glycemia for better healing rest of plan as ordered
[2018-04-29] MEDS ORDERED: Insulin Detemir 100 Units/ml Inj SC SCH ×2 (22:00)
[2018-04-29] MEDS: Insulin Lispro (humaLOG) 100 Units/ml Inj SC SCH (22:23)
[2018-04-30] MEDS: Sodium Chloride 0.9% 1,000 ML IV SCH ×5 (01:50→21:55)
--- NOTE | 2018-04-30 01:50 | CON ---
DATE: 04/29/2018 ENDOCRINOLOGY CONSULT LOCATION: Room 667. HISTORY OF PRESENT ILLNESS: This is a 77-year-old female with known history of type 2 insulin-requiring diabetes, presenting here with persistent neck abscess, and underwent an incision and drainage procedure and is now being referred for diabetic management because of persistent hyperglycemic accelerations despite a combination of Levemir therapy given twice daily with oral hypoglycemic therapy as given. PAST MEDICAL HISTORY: As mentioned above, history of type 2 insulin-requiring diabetes using Levemir at 45 units in the morning and 40 units at bedtime with Januvia at 100 mg daily and metformin at 1 g b.i.d., history of hypertension and dyslipidemia, history of chronic asthmatic bronchitis, on bronchodilator and inhaler therapy. History of diffuse osteoarthritis and lower back pain and also knee pain as noted. FAMILY HISTORY: Positive for hypertension and diabetes. SOCIAL HISTORY: The patient is currently homeless, and previously was staying in [facility]. No known substance use. REVIEW OF SYSTEMS: Admits to generalized body weakness with easy fatigability and tiredness with suboptimal energy level. Also admits to bifrontal headaches with visual blurring and progressively worsening dizziness and lightheadedness, worse in the last few days prior to admission. Admits to episodic precordial chest pain with productive cough and nasal and throat congestion with episodic bouts of shortness of breath, especially on exertion. Her oral intake has been variable with nausea and dyspepsia with marked polyuria, nocturia, and polydipsia. Also admits to habitual constipation. PHYSICAL EXAMINATION: GENERAL: This is an overweight female, in no apparent distress. VITAL SIGNS: Blood pressure of 150/90, pulse of 100 beats per minute and regular, temperature 98, respirations 20, height is 5 feet 2 inches, weight is 180 pounds. HEENT: Head normocephalic. Eyes anicteric with pink conjunctivae. Funduscopy not possible at this time. Ears, nose, and throat, otherwise, normal. NECK: Supple. Thyroid gland is normal in size. No carotid bruits or cervical adenopathy. CARDIOPULMONARY: Some adynamic precordium. S1, S2 rapid and regular. LUNGS: Clear to auscultation. ABDOMEN: Flat, soft with positive bowel sounds. EXTREMITIES: No peripheral edema. Pulses are +2 bilaterally. LABORATORY DATA: The initial chemistry showed a BUN of 19, sodium 131, potassium 4, chloride 90, CO2 of 30, glucose 566, and creatinine 1. ASSESSMENT: This is a 77-year-old female with uncontrolled and decompensated type 2 insulin-requiring diabetes presenting here with a neck abscess with purulent discharge and now also has marked hyperglycemic accelerations related to a subtherapeutic insulin regimen and with spurious hyponatremia and prerenal azotemia and dehydration. PLAN OF MANAGEMENT: We will change her current insulin regimen to a more physiologic basal and bolus insulin drug combination, and we will discontinue the morning basal insulin and change her bedtime insulin to a higher dose of Levemir at 54 units subcu at bedtime daily to start tonight. We will add prandial insulin with Humalog to be given as 12 units subcu t.i.d. before meals to start tomorrow morning as ordered. We will modify the coverage scale with a very low-dose algorithm using Humalog insulin coverage only for glucose above 300 to obviate hypoglycemia and overlap of the current insulin doses. We will obtain a hemoglobin A1c to confirm her prior poor glycemic control and baseline thyroid function studies and lipid panel will be ordered. We will obtain serial chemistries and supplement accordingly as needed. We will continue the vigorous IV hydration as given at this time to replenish the lost fluids and electrolytes as noted. We will consult with [facility] regarding the homelessness condition of the patient, and the need to optimize her metabolic control even on the outpatient with a basal and bolus insulin drug combination which have been given optimally in a homeless detention. We will follow and advised accordingly. Katarina Landaverde MD
[2018-04-30] MEDS: Albuterol-Ipratrop 3 mg / 0.5 (3 ml) UD INH SCH ×6 (05:16→23:37)
[2018-04-30] MEDS: Insulin Lispro (humaLOG) 100 Units/ml Inj SC SCH ×7 (07:30→22:58)
--- NOTE | 2018-04-30 07:37 | CP.PCM.PN ---
<Vijaya Mcgill - Last Filed: 04/30/18 07:35> Subjective - Date & Time of Evaluation Date of Evaluation: 04/30/18 Time of Evaluation: 07:05 - Subjective Subjective: General surgery progress note for Dr. Tyson Patient seen and examined this am at bedside. NAEO per nursing. Patient is resting comfortably and denies pain at the cyst site. Packing removed at bedside and clean dressing placed. Small amount of sebaceous fluid expressed. Patient otherwise denies MOSLEY, neck pain, CP, abdominal pain and extremity pain/weakness. Objective - Vital Signs/Intake and Output Vital Signs (last 24 hours): Temp Pulse Resp BP Pulse Ox 97.9 F 76 20 145/62 95 04/30/18 01:00 04/30/18 01:00 04/30/18 01:00 04/30/18 01:00 04/30/18 01:00 - Medications Medications: Current Medications Acetaminophen (Tylenol 325mg Tab) 650 mg PO Q6 PRN PRN Reason: Pain, moderate (4-7) Albuterol/Ipratropium (Duoneb 3 Mg/0.5 Mg (3 Ml) Ud) 3 ml INH RQ4 [facility] Last Admin: 04/30/18 05:16 Dose: Not Given HCTZ/Losartan Potassium (Hyzaar 12.5 Mg-50 Mg) 2 tab PO DAILY [facility] Last Admin: 04/29/18 10:30 Dose: 2 tab Home Med (Cyclosporine [Restasis]) 1 drop OU Q12 [facility] Vancomycin HCl 1 gm/ Sodium (Chloride) 250 mls @ 166.667 mls/hr IVPB Q12 [facility]; Protocol Last Admin: 04/29/18 21:42 Dose: 166.667 mls/hr Sodium Chloride (Sodium Chloride 0.9%) 1,000 mls @ 150 mls/hr IV .Q6H40M [facility] Stop: 04/30/18 12:29 Last Admin: 04/30/18 06:15 Dose: 150 mls/hr Insulin Detemir (Levemir) 54 units SC HS [facility] Last Admin: 04/29/18 22:27 Dose: 54 u Insulin Human Lispro (Humalog) 12 units SC AC [facility] Insulin Human Lispro (Humalog) 0 units SC ACHS [facility] Last Admin: 04/30/18 07:30 Dose: Not Given Promethazine HCl/Codeine (Phenergan/Codeine Oral Syrup) 10 ml PO Q6 PRN PRN Reason: Cough Last Admin: 04/29/18 12:28 Dose: 10 ml Sertraline HCl (Zoloft) 25 mg PO DAILY [facility] Last Admin: 04/29/18 10:30 Dose: 25 mg Sitagliptin Phosphate (Januvia) 100 mg PO DAILY [facility] Last Admin: 04/29/18 10:29 Dose: 100 mg Tiotropium [place] (Spiriva) 18 mcg IH DAILY [facility] Last Admin: 04/29/18 10:37 Dose: 18 mcg - Labs Labs: 04/29/18 01:16 EST 04/29/18 01:16 EST - Constitutional Appears: Well, Non-toxic, No Acute Distress - Head Exam Head Exam: ATRAUMATIC, NORMOCEPHALIC - Eye Exam Eye Exam: EOMI - ENT Exam ENT Exam: Mucous Membranes Moist - Neck Exam Additional comments: incision over the left posterolateral and inferior neck, no serounding erythema induration or fluctuance, packing removed, clean dressing placed at bedside - Respiratory Exam Respiratory Exam: NORMAL BREATHING PATTERN - Cardiovascular Exam Cardiovascular Exam: REGULAR RHYTHM - GI/Abdominal Exam GI & Abdominal Exam: Soft. absent: Distended, Guarding, Tenderness - Extremities Exam Extremities Exam: absent: Calf Tenderness, Pedal Edema, Tenderness - Neurological Exam Neurological Exam: Alert, Awake, Oriented x3 - Psychiatric Exam Psychiatric exam: Normal Affect, Normal Mood - Skin Skin Exam: Dry, Normal Color, Warm Additional comments: incision over the left posterolateral and inferior neck, packing removed, clean dressing placed Assessment and Plan - Assessment and Plan (Free Text) Assessment: 77 yr old female s/p I&D of sebaceous cyst of the left neck, POD 1 Plan: c/w abx f/u labs c/w dressing changes will d/w Dr. Vicente Mcgill, PGY 1 <Israel Tyson - Last Filed: 04/30/18 13:48> Subjective - Date & Time of Evaluation Time of Evaluation: 13:00 - Subjective Subjective: Patient was seen and examined at the bedside. Agree with resident's note above. Objective - Vital Signs/Intake and Output Vital Signs (last 24 hours): Temp Pulse Resp BP Pulse Ox 98.0 F 81 20 161/82 H 94 L 04/30/18 08:21 04/30/18 08:21 04/30/18 08:21 04/30/18 08:21 04/30/18 08:21 - Medications Medications: Current Medications Acetaminophen (Tylenol 325mg Tab) 650 mg PO Q6 PRN PRN Reason: Pain, moderate (4-7) Albuterol/Ipratropium (Duoneb 3 Mg/0.5 Mg (3 Ml) Ud) 3 ml INH RQ4 [facility] Last Admin: 04/30/18 11:32 Dose: 3 ml HCTZ/Losartan Potassium (Hyzaar 12.5 Mg-50 Mg) 2 tab PO DAILY [facility] Last Admin: 04/30/18 08:49 Dose: 2 tab Home Med (Cyclosporine [Restasis]) 1 drop OU Q12 [facility] Vancomycin HCl 1 gm/ Sodium (Chloride) 250 mls @ 166.667 mls/hr IVPB Q12 [facility]; Protocol Last Admin: 04/30/18 11:24 Dose: 166.667 mls/hr Insulin Detemir (Levemir) 54 units SC HS [facility] Last Admin: 04/29/18 22:27 Dose: 54 u Insulin Human Lispro (Humalog) 12 units SC AC [facility] Last Admin: 04/30/18 13:20 Dose: 12 units Insulin Human Lispro (Humalog) 0 units SC ACHS [facility] Last Admin: 04/30/18 13:43 Dose: Not Given Magnesium Oxide (Mag-Ox) 400 mg PO BID [facility] Pantoprazole Sodium (Protonix Inj) 40 mg IVP DAILY [facility] Last Admin: 04/30/18 11:51 Dose: 40 mg Promethazine HCl/Codeine (Phenergan/Codeine Oral Syrup) 10 ml PO Q6 PRN PRN Reason: Cough Last Admin: 04/30/18 08:53 Dose: 10 ml Sertraline HCl (Zoloft) 25 mg PO DAILY [facility] Last Admin: 04/30/18 08:42 Dose: 25 mg Sitagliptin Phosphate (Januvia) 100 mg PO DAILY [facility] Last Admin: 04/30/18 08:42 Dose: 100 mg Tiotropium [place] (Spiriva) 18 mcg IH DAILY [facility] Last Admin: 04/30/18 08:43 Dose: 18 mcg - Labs Labs: 04/30/18 09:03 04/30/18 09:03 - Skin Additional comments: improving erythema
[2018-04-30] MEDS: Tiotropium 18 mcg Cap For Inhalation IH SCH (08:43)
[2018-04-30] MEDS: HCTZ/Losartan 12.5/50 Tab PO SCH (08:49)
[2018-04-30] MEDS: Promethazine/Cod 6.25mg-10mg/5ml Syr UD PO PRN (08:53)
[2018-04-30] MEDS ORDERED: Insulin Detemir 100 Units/ml Inj SC SCH ×2 (09:00→22:00)
[2018-04-30 09:15] LABS: BASO # 0.1 K/uL (0.0-0.2); BASO % 0.5 % (0.0-2.0); EOS # 0.3 K/uL (0.0-0.7); EOS % 2.7 % (0.0-4.0); LYMPH # 2.8 K/uL (1.0-4.3); LYMPH % 29.2 % (20.0-40.0); MEAN CELL VOLUME 86.4 fl (81.0-99.0); MEAN CORPUSCULAR HEMOGLOBIN 28.5 pg (27.0-31.0); MEAN PLATELET VOLUME 9.9 fl (7.2-11.7); MONO # 0.8 K/uL (0.0-0.8); MONO % 8.8 % (0.0-10.0); NEUT # 5.7 K/uL (1.8-7.0); NEUT % 58.8 % (50.0-75.0); NRBC % 0.1 % (0.0-0.0); RBC 4.22 Mil/uL (3.80-5.20); RED CELL DISTRIBUTION WIDTH 12.9 % (11.5-14.5); WHITE BLOOD COUNT 9.6 K/uL (4.8-10.8)
[2018-04-30 09:32] LABS: LDL CHOLESTEROL 100 mg/dL (0-129)
[2018-04-30 10:01] LABS: ALBUMIN 3.3 g/dL (3.5-5.0); ALT/SGPT 26 U/L (9-52); AST/SGOT 24 U/L (14-36); BLOOD UREA NITROGEN 11 mg/dl (7-17); CALCIUM 8.6 mg/dL (8.4-10.2); GFR NON-AFRICAN AMERICAN > 60; HDL CHOLESTEROL 47 MG/DL (30-70)
[2018-04-30] MEDS ORDERED: Potassium Chloride 20 mEq ER Tab PO ONE (11:31)
[2018-04-30] MEDS: Magnesium Oxide 400 mg Tab UD PO SCH (16:35)
[2018-04-30] MEDS ORDERED: Insulin Lispro (humaLOG) 100 Units/ml Inj SC ONE (16:40)
--- NOTE | 2018-04-30 18:07 | CARD ---
APPROVED REPORT Date of service: 04/30/2018 EXAM: Two-dimensional and M-mode echocardiogram with Doppler and color Doppler. Other Information Quality : GoodRhythm : NSR INDICATION Peripheral Edema 2D DIMENSIONS IVSd1.47 (0.7-1.1cm)LVDd4.39 (3.9-5.9cm) LVOT Diameter2.55 (1.8-2.4cm)PWd1.19 (0.7-1.1cm) IVSs1.63 (0.8-1.2cm)LVDs2.53 (2.5-4.0cm) FS (%) 42.4 %PWs1.72 (0.8-1.2cm) M-Mode DIMENSIONS Left Atrium (MM)3.50 (2.5-4.0cm)IVSd1.18 (0.7-1.1cm) Aortic Root3.29 (2.2-3.7cm)LVDd4.06 (4.0-5.6cm) Aortic Cusp Exc.1.74 (1.5-2.0cm)PWd1.32 (0.7-1.1cm) IVSs1.74 cmFS (%) 48 % LVDs2.12 (2.0-3.8cm)PWs1.71 cm Aortic Valve AoV Peak Rtoqraom516.2cm/sAoV VTI25.8cmAO Peak GR.9mmHg LVOT Peak Seupnjvr974.2cm/sLVOT VTI22.08cmAO Mean GR.5mmHg CHI (VMAX)2.47kc0GOC (VTI)2.40cm2 Mitral Valve MV E Upobeskj57.7cm/sMV DECEL JBME392jmAS A Dlcbdfhl673.4cm/s MV DLH13vuU/A ratio0.7MVA (PHT)3.21cm2 TDI Lateral E' Peak V7.33cm/sMedial E' Peak V6.93cm/sE/Lateral E'9.4 E/Medial E'9.9 LEFT VENTRICLE The left ventricle is normal size. There is mild concentric left ventricular hypertrophy. The left ventricular systolic function is normal. The estimated ejection fraction is 60-65% No regional wall motion abnormalities noted.. Transmitral Doppler flow pattern is Grade I-abnormal relaxation pattern. No left ventricle thrombus noted on this study. There is no ventricular septal defect visualized. There is no left ventricular aneurysm. There is no mass noted in the left ventricle. RIGHT VENTRICLE The right ventricle is normal size. There is normal right ventricular wall thickness. The right ventricular systolic function is normal. ATRIA The left atrium size is normal. The right atrium size is normal. The interatrial septum is intact with no evidence for an atrial septal defect. AORTIC VALVE The aortic valve is normal in structure. No aortic regurgitation is present. There is no aortic valvular stenosis. There is no aortic valvular vegetation. MITRAL VALVE The mitral valve is normal in structure. There is no evidence of mitral valve prolapse. There is no mitral valve stenosis. There is no mitral valve regurgitation noted. TRICUSPID VALVE The tricuspid valve is normal in structure. There is no tricuspid valve regurgitation noted. There is no tricuspid valve prolapse or vegetation. There is no tricuspid valve stenosis. PULMONIC VALVE The pulmonary valve is normal in structure. There is no pulmonic valvular regurgitation. There is no pulmonic valvular stenosis. GREAT VESSELS The aortic root is normal in size. The ascending aorta is normal in size. The pulmonary artery is normal. The IVC is normal in size and collapses >50% with inspiration. PERICARDIAL EFFUSION There is no pericardial effusion. There is no pleural effusion. <Conclusion> The estimated ejection fraction is 60-65% There is mild concentric left ventricular hypertrophy. Transmitral Doppler flow pattern is Grade I-abnormal relaxation pattern. The left atrium size is normal. There is no significant tricuspid valve regurgitation noted. The IVC is normal in size and collapses >50% with inspiration.
--- NOTE | 2018-04-30 18:25 | PN ---
DATE: 04/30/2018 ENDOCRINOLOGY FOLLOWUP NOTE LOCATION: Room 667. SUBJECTIVE: This is a 77-year-old female with recent uncontrolled type 2 insulin-requiring diabetes, presenting here with neck abscess and underwent incision and drainage procedure and is also being followed closely for metabolic management because of recent hyperglycemic accelerations as noted thereof. However, today her glucose levels were low normal as noted and the glucose values actually at 4:00 p.m. was in the mid 40s as noted thereof. The glucose levels earlier were ranging from 118 to 151 mg/dL and was 271 at bedtime last night. Her chemistry showed a BUN of 11, sodium 140, potassium 3.3, chloride 106, CO2 of 29, glucose 66, and creatinine 0.4. However, her hemoglobin A1c is extremely elevated at 14.9% indicative of suboptimal metabolic control of her diabetic condition even prior to this admission. So at this time, we will modify her basal and bolus insulin regimen and lower the Humalog to 8 units subcu t.i.d. before meals to start tonight as ordered. We will also lower the basal insulin to Levemir given as 44 units subcu at bedtime daily to start tonight. We will modify the coverage scale to obviate hypoglycemia and detailed orders have been given. We will follow. Katarina Landaverde MD
--- NOTE | 2018-04-30 18:54 | CP.PCM.PN ---
Subjective - Date & Time of Evaluation Date of Evaluation: 04/30/18 Time of Evaluation: 10:00 - Subjective Subjective: patient seen and examined at bedside. no acute events overnight. no f/c. complaints of GERD. no other complaints at this time. Objective - Vital Signs/Intake and Output Vital Signs (last 24 hours): Temp Pulse Resp BP Pulse Ox 97.8 F 81 18 156/78 H 98 04/30/18 16:29 04/30/18 16:29 04/30/18 16:29 04/30/18 16:29 04/30/18 16:29 - Medications Medications: Current Medications Acetaminophen (Tylenol 325mg Tab) 650 mg PO Q6 PRN PRN Reason: Pain, moderate (4-7) Albuterol/Ipratropium (Duoneb 3 Mg/0.5 Mg (3 Ml) Ud) 3 ml INH RQ4 [facility] Last Admin: 04/30/18 15:27 Dose: 3 ml HCTZ/Losartan Potassium (Hyzaar 12.5 Mg-50 Mg) 2 tab PO DAILY [facility] Last Admin: 04/30/18 08:49 Dose: 2 tab Home Med (Cyclosporine [Restasis]) 1 drop OU Q12 [facility] Vancomycin HCl 1 gm/ Sodium (Chloride) 250 mls @ 166.667 mls/hr IVPB Q12 [facility]; Protocol Last Admin: 04/30/18 11:24 Dose: 166.667 mls/hr Sodium Chloride (Sodium Chloride 0.9%) 1,000 mls @ 150 mls/hr IV .Q6H40M [facility] Stop: 05/01/18 15:07 Last Admin: 04/30/18 15:25 Dose: 150 mls/hr Insulin Detemir (Levemir) 44 units SC HS [facility] Insulin Human Lispro (Humalog) 0 units SC ACHS [facility] Last Admin: 04/30/18 16:40 Dose: Not Given Insulin Human Lispro (Humalog) 8 units SC AC [facility] Last Admin: 04/30/18 16:44 Dose: Not Given Magnesium Oxide (Mag-Ox) 400 mg PO BID [facility] Last Admin: 04/30/18 16:35 Dose: 400 mg Pantoprazole Sodium (Protonix Inj) 40 mg IVP DAILY [facility] Last Admin: 04/30/18 11:51 Dose: 40 mg Promethazine HCl/Codeine (Phenergan/Codeine Oral Syrup) 10 ml PO Q6 PRN PRN Reason: Cough Last Admin: 04/30/18 08:53 Dose: 10 ml Sertraline HCl (Zoloft) 25 mg PO DAILY [facility] Last Admin: 04/30/18 08:42 Dose: 25 mg Sitagliptin Phosphate (Januvia) 100 mg PO DAILY [facility] Last Admin: 04/30/18 08:42 Dose: 100 mg Tiotropium [place] (Spiriva) 18 mcg IH DAILY [facility] Last Admin: 04/30/18 08:43 Dose: 18 mcg - Labs Labs: 04/30/18 09:03 04/30/18 09:03 - Constitutional Appears: Non-toxic, No Acute Distress - Head Exam Head Exam: NORMAL INSPECTION - Eye Exam Eye Exam: Normal appearance - Neck Exam Additional comments: wound dressing present, c/d/i - Respiratory Exam Respiratory Exam: NORMAL BREATHING PATTERN - Cardiovascular Exam Cardiovascular Exam: +S1, +S2 - GI/Abdominal Exam GI & Abdominal Exam: Soft, Normal Bowel Sounds - Neurological Exam Neurological Exam: Alert, Awake, Oriented x3 - Psychiatric Exam Psychiatric exam: Normal Affect, Normal Mood - Skin Skin Exam: Normal Color, Warm Assessment and Plan - Assessment and Plan (Free Text) Assessment: 77 yo homeless female w/ PMHx for DM, HTN admitted with infected sebaceous cyst and abscess on the neck plan c/w IV abx surgery following ID following endocrinology following monitor BS, control glycemia for better healing add protonix rest of plan as ordered
[2018-05-01] MEDS: Sodium Chloride 0.9% 1,000 ML IV SCH ×4 (00:11→12:19)
[2018-05-01] MEDS: Albuterol-Ipratrop 3 mg / 0.5 (3 ml) UD INH SCH ×5 (04:28→19:05)
[2018-05-01 06:46] LABS: BASO % 0.5 % (0.0-2.0); EOS # 0.2 K/uL (0.0-0.7); HEMOGLOBIN 11.9 g/dL (12.0-16.0); LYMPH # 1.8 K/uL (1.0-4.3); LYMPH % 24.4 % (20.0-40.0); MEAN CELL VOLUME 84.3 fl (81.0-99.0); MEAN CORPUSCULAR HEMOGLOBIN 27.7 pg (27.0-31.0); MEAN CORPUSCULAR HGB CONC 32.8 g/dL (33.0-37.0); MEAN PLATELET VOLUME 9.3 fl (7.2-11.7); MONO # 0.7 K/uL (0.0-0.8); MONO % 9.8 % (0.0-10.0); NEUT # 4.5 K/uL (1.8-7.0); NEUT % 62.3 % (50.0-75.0); RBC 4.29 Mil/uL (3.80-5.20); RED CELL DISTRIBUTION WIDTH 13.1 % (11.5-14.5); WHITE BLOOD COUNT 7.3 K/uL (4.8-10.8)
[2018-05-01 07:01] LABS: ALBUMIN 3.3 g/dL (3.5-5.0); ALT/SGPT 24 U/L (9-52); AST/SGOT 25 U/L (14-36); BLOOD UREA NITROGEN 5 mg/dl (7-17); CALCIUM 8.9 mg/dL (8.4-10.2); GFR NON-AFRICAN AMERICAN > 60
[2018-05-01] MEDS: Insulin Lispro (humaLOG) 100 Units/ml Inj SC SCH ×8 (07:02→22:25)
--- NOTE | 2018-05-01 07:43 | CP.PCM.PN ---
<Vijaya Mcgill - Last Filed: 05/01/18 08:03> Subjective - Date & Time of Evaluation Date of Evaluation: 05/01/18 Time of Evaluation: 07:10 - Subjective Subjective: General Surgery Progress note for Dr. Tyson Patient seen and examined this am at bedside. No acute events overnight per nursing. Dressing changed at bedside. Patient reports headache this morning but states it is bilateral and not specific to her cyst site. She states that her pain is well controlled with tylenol and that her headache improved with the tylenol. She otherwise denies dizziness, confusion, vision changes, difficulty moving her neck, CP abdominal pain and extremity pain or weakness. Objective - Vital Signs/Intake and Output Vital Signs (last 24 hours): Temp Pulse Resp BP Pulse Ox 98 F 107 H 20 176/82 H 95 05/01/18 00:59 05/01/18 00:59 05/01/18 00:59 05/01/18 00:59 05/01/18 00:59 - Medications Medications: Current Medications Acetaminophen (Tylenol 325mg Tab) 650 mg PO Q6 PRN PRN Reason: Pain, moderate (4-7) Albuterol/Ipratropium (Duoneb 3 Mg/0.5 Mg (3 Ml) Ud) 3 ml INH RQ4 [facility] Last Admin: 05/01/18 04:28 Dose: 3 ml HCTZ/Losartan Potassium (Hyzaar 12.5 Mg-50 Mg) 2 tab PO DAILY [facility] Last Admin: 04/30/18 08:49 Dose: 2 tab Home Med (Cyclosporine [Restasis]) 1 drop OU Q12 [facility] Vancomycin HCl 1 gm/ Sodium (Chloride) 250 mls @ 166.667 mls/hr IVPB Q12 [facility]; Protocol Last Admin: 04/30/18 20:50 Dose: 166.667 mls/hr Sodium Chloride (Sodium Chloride 0.9%) 1,000 mls @ 150 mls/hr IV .Q6H40M [facility] Stop: 05/01/18 15:07 Last Admin: 05/01/18 04:35 Dose: Not Given Insulin Detemir (Levemir) 44 units SC HS [facility] Last Admin: 04/30/18 23:00 Dose: 44 u Insulin Human Lispro (Humalog) 0 units SC ACHS [facility] Last Admin: 05/01/18 07:02 Dose: Not Given Insulin Human Lispro (Humalog) 8 units SC AC [facility] Last Admin: 04/30/18 16:44 Dose: Not Given Magnesium Oxide (Mag-Ox) 400 mg PO BID [facility] Last Admin: 04/30/18 16:35 Dose: 400 mg Pantoprazole Sodium (Protonix Inj) 40 mg IVP DAILY [facility] Last Admin: 04/30/18 11:51 Dose: 40 mg Promethazine HCl/Codeine (Phenergan/Codeine Oral Syrup) 10 ml PO Q6 PRN PRN Reason: Cough Last Admin: 04/30/18 08:53 Dose: 10 ml Sertraline HCl (Zoloft) 25 mg PO DAILY [facility] Last Admin: 04/30/18 08:42 Dose: 25 mg Sitagliptin Phosphate (Januvia) 100 mg PO DAILY [facility] Last Admin: 04/30/18 08:42 Dose: 100 mg Tiotropium [place] (Spiriva) 18 mcg IH DAILY [facility] Last Admin: 04/30/18 08:43 Dose: 18 mcg - Labs Labs: 05/01/18 06:15 05/01/18 06:15 - Constitutional Appears: Well, Non-toxic, No Acute Distress - Head Exam Head Exam: ATRAUMATIC, NORMOCEPHALIC - Eye Exam Eye Exam: EOMI - ENT Exam ENT Exam: Mucous Membranes Moist - Neck Exam Neck Exam: Full ROM. absent: Tenderness Additional comments: incision over the left posterolateral and inferior neck, no surrounding erythema or fluctuance, clean dressing placed at bedside - Respiratory Exam Respiratory Exam: NORMAL BREATHING PATTERN - Cardiovascular Exam Cardiovascular Exam: REGULAR RHYTHM - GI/Abdominal Exam GI & Abdominal Exam: Soft. absent: Distended, Tenderness - Neurological Exam Neurological Exam: Alert, Awake, CN II-XII Intact, Oriented x3. absent: Motor Sensory Deficit - Psychiatric Exam Psychiatric exam: Normal Affect, Normal Mood - Skin Skin Exam: Dry, Warm Additional comments: incision over the left posterolateral and inferior neck, no serounding erythema or fluctuance, clean dressing placed at bedside Assessment and Plan - Assessment and Plan (Free Text) Assessment: 77 yr old female s/p I&D of sebaceous cyst on neck, POD 2 Plan: c/w dressing changes as needed c/w abx per ID recommendations replete electrolytes as needed no further surgical intervention needed at this time please reconsult as necessary will d/w Dr. Marbella Mcgill, PGY 1 <Israel Tyson - Last Filed: 05/01/18 10:40> Subjective - Date & Time of Evaluation Time of Evaluation: 10:10 - Subjective Subjective: Patient was seen and examined at the bedside. Agree with resident's note above. Objective - Vital Signs/Intake and Output Vital Signs (last 24 hours): Temp Pulse Resp BP Pulse Ox 97.8 F 87 20 181/82 H 95 05/01/18 10:00 05/01/18 07:54 05/01/18 07:54 05/01/18 07:54 05/01/18 07:54 - Medications Medications: Current Medications Acetaminophen (Tylenol 325mg Tab) 650 mg PO Q6 PRN PRN Reason: Pain, moderate (4-7) Last Admin: 05/01/18 10:00 Dose: 650 mg Albuterol/Ipratropium (Duoneb 3 Mg/0.5 Mg (3 Ml) Ud) 3 ml INH RQ4 [facility] Last Admin: 05/01/18 07:55 Dose: 3 ml HCTZ/Losartan Potassium (Hyzaar 12.5 Mg-50 Mg) 2 tab PO DAILY [facility] Last Admin: 05/01/18 09:44 Dose: 2 tab Home Med (Cyclosporine [Restasis]) 1 drop OU Q12 [facility] Vancomycin HCl 1 gm/ Sodium (Chloride) 250 mls @ 166.667 mls/hr IVPB Q12 [facility]; Protocol Last Admin: 05/01/18 09:02 Dose: 166.667 mls/hr Sodium Chloride (Sodium Chloride 0.9%) 1,000 mls @ 150 mls/hr IV .Q6H40M [facility] Stop: 05/01/18 15:07 Last Admin: 05/01/18 09:02 Dose: 150 mls/hr Potassium Chloride (Potassium Chloride 20 Meq/100 Ml) 100 mls @ 50 mls/hr IVPB Q2 [facility] Stop: 05/01/18 13:59 Magnesium Sulfate (Magnesium Sulfate 2 Gm/50 Ml Water) 2 gm in 50 mls @ 50 mls/hr IVPB ONCE ONE Stop: 05/01/18 10:29 Insulin Detemir (Levemir) 44 units SC HS [facility] Last Admin: 04/30/18 23:00 Dose: 44 u Insulin Human Lispro (Humalog) 0 units SC ACHS [facility] Last Admin: 05/01/18 07:02 Dose: Not Given Insulin Human Lispro (Humalog) 8 units SC AC [facility] Last Admin: 04/30/18 16:44 Dose: Not Given Magnesium Oxide (Mag-Ox) 400 mg PO BID [facility] Last Admin: 05/01/18 09:49 Dose: 400 mg Pantoprazole Sodium (Protonix Inj) 40 mg IVP DAILY [facility] Last Admin: 05/01/18 09:02 Dose: 40 mg Promethazine HCl/Codeine (Phenergan/Codeine Oral Syrup) 10 ml PO Q6 PRN PRN Reason: Cough Last Admin: 04/30/18 08:53 Dose: 10 ml Sertraline HCl (Zoloft) 25 mg PO DAILY [facility] Last Admin: 05/01/18 09:51 Dose: 25 mg Sitagliptin Phosphate (Januvia) 100 mg PO DAILY [facility] Last Admin: 05/01/18 09:48 Dose: 100 mg Tiotropium [place] (Spiriva) 18 mcg IH DAILY [facility] Last Admin: 05/01/18 09:52 Dose: 18 mcg - Labs Labs: 05/01/18 06:15 05/01/18 06:15 Assessment and Plan - Assessment and Plan (Free Text) Plan: - No further general surgery intervention at present time - Continue care as per medical team - General surgery will sign off - Please re-consult as needed
[2018-05-01] MEDS ORDERED: Magnesium Sulfate 2 gm/50 ml 2 GM/50 ML BAG IVPB ONE (09:30)
[2018-05-01] MEDS: HCTZ/Losartan 12.5/50 Tab PO SCH (09:44)
[2018-05-01] MEDS: Magnesium Oxide 400 mg Tab UD PO SCH ×2 (09:49→16:24)
[2018-05-01] MEDS: Tiotropium 18 mcg Cap For Inhalation IH SCH (09:52)
[2018-05-01] MEDS: Potassium Chloride 20 mEq 100 ML IVPB SCH ×2 (11:02→12:18)
[2018-05-01] MEDS: Promethazine/Cod 6.25mg-10mg/5ml Syr UD PO PRN (12:24)
--- NOTE | 2018-05-01 14:43 | CP.PCM.PCO ---
Assessment & Plan - Assessment and Plan (Free Text) Assessment: patient will require Vancomycing 1 gm iv q12 for 7 more days as per hgb A1c 14, for PICC insertion, f/u cbc, bmp in am pt. aggreable to to to WILL for iv abx
--- NOTE | 2018-05-01 18:09 | PN ---
DATE: 05/01/2018 SUBJECTIVE: The patient is seen and examined. Interim events noted. The patient is seen for Dr. . The patient still has discomfort in her back of neck. No chest pain, no shortness of breath, and discomfort is actually getting better. PHYSICAL EXAMINATION: GENERAL: The patient is in no acute distress. VITAL SIGNS: Stable. HEART: S1 and S2 normal and regular. LUNGS: Good bilateral air exchange. ABDOMEN: Soft and nontender. EXTREMITIES: No edema, no calf swelling, no tenderness, no acute ischemia. BAR TACKER: Exam is essentially unchanged. ASSESSMENT AND PLAN: exam shows cellulitis slightly better, but still has purulent discharge. Plan as ordered. Mello Cordova MD
[2018-05-01] MEDS ORDERED: Insulin Detemir 100 Units/ml Inj SC SCH (22:00)
--- NOTE | 2018-05-01 22:39 | PN ---
DATE: 05/01/2018 SUBJECTIVE: This is a 77-year-old female with recent uncontrolled type 2 insulin-requiring diabetes, currently receiving IV antibiotic management for a neck abscess and underlying cellulitis as noted. Her glycemic levels are fluctuating but improved, and the glucose values today have ranged from 225 to 238 mg/dL. It was 82 at pre-breakfast time this morning as noted and 207 at bedtime accordingly. LABORATORY DATA: Her chemistries showed a BUN of 5, sodium 141, potassium 3.4, chloride 106, CO2 of 28, glucose 70 and creatinine 0.6. PLAN: So at this time we will modify once again her basal and bolus insulin regimen and lower the Humalog to 8 units subcu t.i.d. before meals to start today as ordered. We will also lower the basal insulin with Levemir to be given as 34 units subcu at bedtime daily to start tonight. We will obtain serial chemistries and supplement accordingly as needed. We will continue also the low-dose correction scale using Humalog insulin as given. We will follow and advise accordingly. Katarina Landaverde MD
[2018-05-02] MEDS: Albuterol-Ipratrop 3 mg / 0.5 (3 ml) UD INH SCH ×7 (00:34→23:23)
[2018-05-02 06:39] LABS: HEMOGLOBIN 11.7 g/dL (12.0-16.0); MEAN CELL VOLUME 85.3 fl (81.0-99.0); MEAN CORPUSCULAR HEMOGLOBIN 28.3 pg (27.0-31.0); MEAN CORPUSCULAR HGB CONC 33.2 g/dL (33.0-37.0); RBC 4.15 Mil/uL (3.80-5.20); RED CELL DISTRIBUTION WIDTH 13.2 % (11.5-14.5); WHITE BLOOD COUNT 8.2 K/uL (4.8-10.8)
[2018-05-02 06:41] LABS: BLOOD UREA NITROGEN 10 mg/dl (7-17); GFR NON-AFRICAN AMERICAN > 60
[2018-05-02] MEDS: Insulin Lispro (humaLOG) 100 Units/ml Inj SC SCH ×7 (07:30→23:18)
[2018-05-02] MEDS: HCTZ/Losartan 12.5/50 Tab PO SCH (09:56)
[2018-05-02] MEDS: Tiotropium 18 mcg Cap For Inhalation IH SCH (09:57)
[2018-05-02] MEDS: Magnesium Oxide 400 mg Tab UD PO SCH ×2 (09:57→16:18)
--- NOTE | 2018-05-02 11:15 | RAD ---
Date of service: 05/02/2018 HISTORY: PICC Insertion COMPARISON: 04/29/2018 FINDINGS: LUNGS: Vague increased opacity over left costophrenic angle without obscuration of left hemidiaphragm. Summation of soft tissues including prominent breast soft tissues is 1 consideration. Conceivably a pleural effusion somewhat layering is another. Other pleural parenchymal blending pathology here not excluded. Appearance is slightly more conspicuous with the 04/29/2018 study but similar with 04/17/2018 summation of soft tissues is favored. PLEURA: No significant pleural effusion identified, no pneumothorax apparent. CARDIOVASCULAR: No aortic atherosclerotic calcification present. Cardiomegaly-similar. Top-normal pulmonary vascular status. Interval insertion right PICC line tip at cavoatrial junction. OSSEOUS STRUCTURES: Thoracic spondylosis. VISUALIZED UPPER ABDOMEN: Normal. OTHER FINDINGS: None. IMPRESSION: Interval insertion right PICC line tip satisfactory. No pneumothorax appreciated. Cardiomegaly. Other findings as above.
--- NOTE | 2018-05-02 12:53 | CP.PCM.PN ---
Subjective - Date & Time of Evaluation Date of Evaluation: 05/02/18 Time of Evaluation: 07:00 - Subjective Subjective: IV rx in progress Objective - Vital Signs/Intake and Output Vital Signs (last 24 hours): Temp Pulse Resp BP Pulse Ox 97.8 F 92 H 20 165/92 H 98 05/02/18 09:16 05/02/18 12:37 05/02/18 09:16 05/02/18 12:37 05/02/18 09:16 - Medications Medications: Current Medications Acetaminophen (Tylenol 325mg Tab) 650 mg PO Q6 PRN PRN Reason: Pain, moderate (4-7) Last Admin: 05/02/18 05:13 Dose: 650 mg Albuterol/Ipratropium (Duoneb 3 Mg/0.5 Mg (3 Ml) Ud) 3 ml INH RQ4 [facility] Last Admin: 05/02/18 11:17 Dose: 3 ml Home Med (Cyclosporine [Restasis]) 1 drop OU Q12 [facility] Vancomycin HCl 1 gm/ Sodium (Chloride) 250 mls @ 166.667 mls/hr IVPB Q12 [facility]; Protocol Insulin Detemir (Levemir) 40 units SC HS [facility] Insulin Human Lispro (Humalog) 0 units SC ACHS [facility] Last Admin: 05/02/18 07:30 Dose: Not Given Insulin Human Lispro (Humalog) 8 units SC AC [facility] Last Admin: 05/02/18 07:30 Dose: 8 units Losartan Potassium (Cozaar) 100 mg PO DAILY [facility] Last Admin: 05/02/18 12:37 Dose: 100 mg Magnesium Oxide (Mag-Ox) 400 mg PO BID [facility] Last Admin: 05/02/18 09:57 Dose: 400 mg Metformin HCl (Glucophage) 500 mg PO BIDWM [facility] Pantoprazole Sodium (Protonix Inj) 40 mg IVP DAILY [facility] Last Admin: 05/02/18 10:13 Dose: 40 mg Promethazine HCl/Codeine (Phenergan/Codeine Oral Syrup) 10 ml PO Q6 PRN PRN Reason: Cough Last Admin: 05/01/18 12:24 Dose: 10 ml Sertraline HCl (Zoloft) 25 mg PO DAILY [facility] Last Admin: 05/02/18 09:58 Dose: 25 mg Sitagliptin Phosphate (Januvia) 100 mg PO DAILY [facility] Last Admin: 05/02/18 09:56 Dose: 100 mg Tiotropium [place] (Spiriva) 18 mcg IH DAILY [facility] Last Admin: 05/02/18 09:57 Dose: 18 mcg - Labs Labs: 05/02/18 06:05 05/02/18 06:05 - Constitutional Appears: Non-toxic, Chronically Ill - Head Exam Head Exam: NORMOCEPHALIC - Eye Exam Eye Exam: absent: Scleral icterus - ENT Exam ENT Exam: Mucous Membranes Dry - Neck Exam Neck Exam: absent: Lymphadenopathy - Respiratory Exam Respiratory Exam: Decreased Breath Sounds - Cardiovascular Exam Cardiovascular Exam: REGULAR RHYTHM - GI/Abdominal Exam GI & Abdominal Exam: Distended, Soft - Rectal Exam Rectal Exam: Deferred - Exam Exam: NORMAL INSPECTION - Extremities Exam Extremities Exam: absent: Pedal Edema - Back Exam Back Exam: absent: CVA tenderness (L), CVA tenderness (R) - Neurological Exam Neurological Exam: Alert, Awake, CN II-XII Intact, Oriented x3 - Psychiatric Exam Psychiatric exam: Depressed - Skin Skin Exam: Dry Assessment and Plan (1) Abscess Status: Acute (2) Cellulitis Status: Acute (3) Diabetes mellitus with hyperglycemia Status: Acute
--- NOTE | 2018-05-02 17:28 | CP.PCM.PN ---
Subjective - Date & Time of Evaluation Date of Evaluation: 05/02/18 Time of Evaluation: 10:26 - Subjective Subjective: 77 y/o f was seen and examined by bedside with Dr Jon. Pt reports feeling well with NO complaints now. Pt afebrile, tolerating PO with Nona cute events overnight. Objective - Vital Signs/Intake and Output Vital Signs (last 24 hours): Temp Pulse Resp BP Pulse Ox 98 F 98 H 18 153/85 H 92 L 05/02/18 16:47 05/02/18 16:47 05/02/18 16:47 05/02/18 16:47 05/02/18 16:47 - Medications Medications: Current Medications Acetaminophen (Tylenol 325mg Tab) 650 mg PO Q6 PRN PRN Reason: Pain, moderate (4-7) Last Admin: 05/02/18 05:13 Dose: 650 mg Albuterol/Ipratropium (Duoneb 3 Mg/0.5 Mg (3 Ml) Ud) 3 ml INH RQ4 [facility] Last Admin: 05/02/18 15:29 Dose: 3 ml Home Med (Cyclosporine [Restasis]) 1 drop OU Q12 [facility] Vancomycin HCl 1 gm/ Sodium (Chloride) 250 mls @ 166.667 mls/hr IVPB Q12 [facility]; Protocol Insulin Detemir (Levemir) 40 units SC HS [facility] Insulin Human Lispro (Humalog) 0 units SC ACHS [facility] Last Admin: 05/02/18 14:56 Dose: Not Given Insulin Human Lispro (Humalog) 8 units SC AC [facility] Last Admin: 05/02/18 13:05 Dose: 8 units Losartan Potassium (Cozaar) 100 mg PO DAILY [facility] Last Admin: 05/02/18 12:37 Dose: 100 mg Magnesium Oxide (Mag-Ox) 400 mg PO BID [facility] Last Admin: 05/02/18 16:18 Dose: 400 mg Metformin HCl (Glucophage) 500 mg PO BIDWM [facility] Last Admin: 05/02/18 16:18 Dose: 500 mg Pantoprazole Sodium (Protonix Inj) 40 mg IVP DAILY [facility] Last Admin: 05/02/18 10:13 Dose: 40 mg Promethazine HCl/Codeine (Phenergan/Codeine Oral Syrup) 10 ml PO Q6 PRN PRN Reason: Cough Last Admin: 11/06/18 12:24 Dose: 10 ml Sertraline HCl (Zoloft) 25 mg PO DAILY [facility] Last Admin: 05/02/18 09:58 Dose: 25 mg Sitagliptin Phosphate (Januvia) 100 mg PO DAILY [facility] Last Admin: 05/02/18 09:56 Dose: 100 mg Tiotropium [place] (Spiriva) 18 mcg IH DAILY [facility] Last Admin: 05/02/18 09:57 Dose: 18 mcg - Labs Labs: 05/02/18 06:05 05/02/18 06:05 - Skin Additional comments: - Constitutional Appears: Non-toxic, No Acute Distress - Head Exam Head Exam: NORMAL INSPECTION - Eye Exam Eye Exam: Normal appearance - Neck Exam Additional comments: wound dressing present c/d/i. Upon undressing, wound is erythematous and decreasing in size. - Respiratory Exam Respiratory Exam: NORMAL BREATHING PATTERN - Cardiovascular Exam Cardiovascular Exam: +S1, +S2 - GI/Abdominal Exam GI & Abdominal Exam: Soft, Normal Bowel Sounds - Neurological Exam Neurological Exam: Alert, Awake, Oriented x3 - Psychiatric Exam Psychiatric exam: Normal Affect, Normal Mood - Skin Skin Exam: Normal Color, Warm Assessment and Plan - Assessment and Plan (Free Text) Assessment: 77 y/o F homeless with a PMHx for DM, HTN admitted for evaluation of abscess on the neck Plan --Pt will need 7 more days of IV antibiotics, Vancomycin 1gr Q12H --Stable --ID on board, Dr Toscano. --C/w IV Vancomycin --Continue management as ordered. Case discussed with Dr Danay Aguilera, PGY-2
--- NOTE | 2018-05-02 20:08 | PN ---
DATE: 05/02/2018 LOCATION: Room 667. SUBJECTIVE: This is a 77-year-old female with recent uncontrolled type 2 insulin-requiring diabetes, now being followed closely for metabolic management. Her oral intake remains variable at this time with supervening glycemic fluctuations as noted overnight. LABORATORY DATA: Her glucose levels have ranged from 180 to 292 mg/dL. It was 150 at bedtime last night. Her chemistries today showed a BUN of 10, sodium 137, potassium 4.4, chloride 101, CO2 of 31, glucose 200 and creatinine 0.8. PLAN: So at this time, we will continue the same basal and bolus insulin regimen to allow for dose equilibration and keep her on the Levemir given as 40 units subcu at bedtime daily as given. We will continue the Humalog given as 8 units subcu t.i.d. before meals as ordered. We will continue also the low-dose correction scale using insulin as given. We will obtain serial chemistries and supplement accordingly as needed. We will follow. Katarina Landaverde MD
[2018-05-02] MEDS: Insulin Detemir 100 Units/ml Inj SC SCH (23:20)
[2018-05-03] MEDS: Albuterol-Ipratrop 3 mg / 0.5 (3 ml) UD INH SCH ×6 (05:18→23:48)
[2018-05-03] MEDS: Insulin Lispro (humaLOG) 100 Units/ml Inj SC SCH ×7 (07:54→22:30)
[2018-05-03] MEDS: Magnesium Oxide 400 mg Tab UD PO SCH ×2 (08:59→16:34)
[2018-05-03] MEDS: Tiotropium 18 mcg Cap For Inhalation IH SCH (08:59)
--- NOTE | 2018-05-03 17:12 | CP.PCM.PN ---
Subjective - Date & Time of Evaluation Date of Evaluation: 05/03/18 Time of Evaluation: 11:45 - Subjective Subjective: 77 y/o F was seen and examined by bedside with Dr Jon. Pt with NO complaints now. Pt afebrile, tolerating PO with NO cute events overnight. Objective - Vital Signs/Intake and Output Vital Signs (last 24 hours): Temp Pulse Resp BP Pulse Ox 98.4 F 97 H 18 168/80 H 92 L 05/03/18 16:51 05/03/18 16:51 05/03/18 16:51 05/03/18 16:51 05/03/18 16:51 - Medications Medications: Current Medications Acetaminophen (Tylenol 325mg Tab) 650 mg PO Q6 PRN PRN Reason: Pain, moderate (4-7) Last Admin: 05/03/18 17:02 Dose: 650 mg Albuterol/Ipratropium (Duoneb 3 Mg/0.5 Mg (3 Ml) Ud) 3 ml INH RQ4 [facility] Last Admin: 05/03/18 15:56 Dose: 3 ml Home Med (Cyclosporine [Restasis]) 1 drop OU Q12 [facility] Vancomycin HCl 1 gm/ Sodium (Chloride) 250 mls @ 166.667 mls/hr IVPB Q12 [facility]; Protocol Last Admin: 05/03/18 08:58 Dose: 166.667 mls/hr Insulin Detemir (Levemir) 40 units SC HS [facility] Last Admin: 05/02/18 23:20 Dose: 40 units Insulin Human Lispro (Humalog) 0 units SC ACHS [facility] Last Admin: 05/03/18 16:34 Dose: Not Given Insulin Human Lispro (Humalog) 8 units SC AC [facility] Last Admin: 05/03/18 16:34 Dose: 8 units Losartan Potassium (Cozaar) 100 mg PO DAILY [facility] Last Admin: 05/03/18 08:58 Dose: 100 mg Magnesium Oxide (Mag-Ox) 400 mg PO BID [facility] Last Admin: 05/03/18 16:34 Dose: 400 mg Metformin HCl (Glucophage) 500 mg PO BIDWM [facility] Last Admin: 05/03/18 16:35 Dose: 500 mg Pantoprazole Sodium (Protonix Inj) 40 mg IVP DAILY [facility] Last Admin: 05/03/18 08:59 Dose: 40 mg Promethazine HCl/Codeine (Phenergan/Codeine Oral Syrup) 10 ml PO Q6 PRN PRN Reason: Cough Last Admin: 05/01/18 12:24 Dose: 10 ml Sertraline HCl (Zoloft) 25 mg PO DAILY [facility] Last Admin: 05/03/18 08:59 Dose: 25 mg Sitagliptin Phosphate (Januvia) 100 mg PO DAILY [facility] Last Admin: 05/03/18 08:59 Dose: 100 mg Tiotropium [place] (Spiriva) 18 mcg IH DAILY [facility] Last Admin: 05/03/18 08:59 Dose: 18 mcg - Labs Labs: 05/02/18 06:05 05/02/18 06:05 - Additional Findings Additional findings: - Constitutional Appears: Non-toxic, No Acute Distress - Head Exam Head Exam: NORMAL INSPECTION - Eye Exam Eye Exam: Normal appearance - Neck Exam Additional comments: wound uncovered is clean and dry, no suppuration. Erythema around wound is decreasing in intensity and size. - Respiratory Exam Respiratory Exam: NORMAL BREATHING PATTERN - Cardiovascular Exam Cardiovascular Exam: +S1, +S2 - GI/Abdominal Exam GI & Abdominal Exam: Soft, Normal Bowel Sounds - Neurological Exam Neurological Exam: Alert, Awake, Oriented x3 - Psychiatric Exam Psychiatric exam: Normal Affect, Normal Mood - Skin Skin Exam: Normal Color, Warm Assessment and Plan - Assessment and Plan (Free Text) Assessment: 77 y/o F homeless with a PMHx for DM, HTN admitted for evaluation of abscess on the neck Plan --Stable, afebrile, tolerating PO. --Discharge under process. --Pt will need 6 more days of IV antibiotics, Vancomycin 1gr Q12H --ID on board, Dr Toscano. --C/w IV Vancomycin --Continue management as ordered. Case discussed with Dr Jon who agrees with the above AWILDA Aguilera PGY-2
[2018-05-03] MEDS: Insulin Detemir 100 Units/ml Inj SC SCH (22:35)
--- NOTE | 2018-05-04 00:53 | PN ---
DATE: 05/03/2018 LOCATION: Room 667. SUBJECTIVE: This is a 77-year-old female with recent uncontrolled type 2 insulin-requiring diabetes, now being followed closely for metabolic management. She has ongoing IV antibiotics for a recent neck abscess with recent incision and drainage procedure undertaken thereof. Her glycemic levels were initially fluctuating but overnight have improved as noted with the glucose values ranging from 121 to 142 and 168 mg/dL. LABORATORY DATA: Her latest chemistry showed a BUN of 10, sodium 137, potassium 4.4, chloride 101, CO2 of 31, glucose 200 and creatinine 0.8. PLAN: So at this time, we will continue the same basal and bolus insulin regimen to allow for dose equilibration and keep her on the Humalog given as 8 units subcu t.i.d. before meals as ordered. We will modify her basal insulin and increase the Levemir to 40 units subcu at bedtime daily as given. We will obtain serial chemistries and supplement accordingly needed. We will follow. Katarina Landaverde MD
[2018-05-04] MEDS: Albuterol-Ipratrop 3 mg / 0.5 (3 ml) UD INH SCH ×5 (05:13→19:01)
[2018-05-04] MEDS: Insulin Lispro (humaLOG) 100 Units/ml Inj SC SCH ×7 (07:14→22:09)
[2018-05-04] MEDS: Tiotropium 18 mcg Cap For Inhalation IH SCH (08:42)
[2018-05-04] MEDS: Magnesium Oxide 400 mg Tab UD PO SCH ×2 (08:42→16:14)
--- NOTE | 2018-05-04 17:18 | CP.PCM.PN ---
Subjective - Date & Time of Evaluation Date of Evaluation: 05/04/18 Time of Evaluation: 11:07 - Subjective Subjective: 77 y/o F was seen and examined by bedside with Dr Jon. Pt reports feeling well. Pt afebrile, tolerating PO with NO cute events overnight. Objective - Vital Signs/Intake and Output Vital Signs (last 24 hours): Temp Pulse Resp BP Pulse Ox 98.5 F 86 18 147/65 92 L 05/04/18 16:14 05/04/18 16:14 05/04/18 16:14 05/04/18 16:14 05/04/18 16:14 - Medications Medications: Current Medications Acetaminophen (Tylenol 325mg Tab) 650 mg PO Q6 PRN PRN Reason: Pain, moderate (4-7) Last Admin: 05/03/18 17:02 Dose: 650 mg Albuterol/Ipratropium (Duoneb 3 Mg/0.5 Mg (3 Ml) Ud) 3 ml INH RQ4 [facility] Last Admin: 05/04/18 15:14 Dose: 3 ml Home Med (Cyclosporine [Restasis]) 1 drop OU Q12 [facility] Vancomycin HCl 1 gm/ Sodium (Chloride) 250 mls @ 166.667 mls/hr IVPB Q12 [facility]; Protocol Last Admin: 05/04/18 08:41 Dose: 166.667 mls/hr Insulin Detemir (Levemir) 40 units SC HS [facility] Last Admin: 05/03/18 22:35 Dose: Not Given Insulin Human Lispro (Humalog) 0 units SC ACHS [facility] Last Admin: 05/04/18 16:14 Dose: Not Given Insulin Human Lispro (Humalog) 8 units SC AC [facility] Last Admin: 05/04/18 16:14 Dose: 8 units Losartan Potassium (Cozaar) 100 mg PO DAILY [facility] Last Admin: 05/04/18 08:41 Dose: 100 mg Magnesium Oxide (Mag-Ox) 400 mg PO BID [facility] Last Admin: 05/04/18 16:14 Dose: 400 mg Metformin HCl (Glucophage) 500 mg PO BIDWM [facility] Last Admin: 05/04/18 16:14 Dose: 500 mg Pantoprazole Sodium (Protonix Inj) 40 mg IVP DAILY [facility] Last Admin: 05/04/18 08:42 Dose: 40 mg Promethazine HCl/Codeine (Phenergan/Codeine Oral Syrup) 10 ml PO Q6 PRN PRN Reason: Cough Last Admin: 05/01/18 12:24 Dose: 10 ml Sertraline HCl (Zoloft) 25 mg PO DAILY [facility] Last Admin: 05/04/18 08:42 Dose: 25 mg Sitagliptin Phosphate (Januvia) 100 mg PO DAILY [facility] Last Admin: 05/04/18 08:42 Dose: 100 mg Tiotropium [place] (Spiriva) 18 mcg IH DAILY [facility] Last Admin: 05/04/18 08:42 Dose: 18 mcg - Labs Labs: 05/02/18 06:05 05/02/18 06:05 - Additional Findings Additional findings: - Constitutional Appears: Non-toxic, No Acute Distress - Head Exam Head Exam: NORMAL INSPECTION - Eye Exam Eye Exam: Normal appearance - Neck Exam Additional comments: wound uncovered is clean and dry, no suppuration. Erythema is decreasing in size. - Respiratory Exam Respiratory Exam: NORMAL BREATHING PATTERN - Cardiovascular Exam Cardiovascular Exam: +S1, +S2 - GI/Abdominal Exam GI & Abdominal Exam: Soft, Normal Bowel Sounds - Neurological Exam Neurological Exam: Alert, Awake, Oriented x3 - Psychiatric Exam Psychiatric exam: Normal Affect, Normal Mood - Skin Skin Exam: Normal Color, Warm Assessment and Plan - Assessment and Plan (Free Text) Assessment: 77 y/o F homeless with a PMHx for DM, HTN admitted for evaluation of abscess on the neck Plan --Stable, afebrile, tolerating PO. --Vanco through ordered. F/U result --Pt will need 5 more days of IV antibiotics, Vancomycin 1gr Q12H --ID on board, Dr Toscano. --C/w IV Vancomycin --Continue management as ordered. Case discussed with Dr Jon who agrees with the above AWILDA Aguilera PGY-2
--- NOTE | 2018-05-04 18:58 | CP.PCM.PN ---
Subjective - Date & Time of Evaluation Date of Evaluation: 05/04/18 Time of Evaluation: 08:00 - Subjective Subjective: vanco level reported at 47 this was not called to my attention vanco d/c'd and random level ordered for am Objective - Vital Signs/Intake and Output Vital Signs (last 24 hours): Temp Pulse Resp BP Pulse Ox 98.5 F 86 18 147/65 92 L 05/04/18 16:14 05/04/18 16:14 05/04/18 16:14 05/04/18 16:14 05/04/18 16:14 - Medications Medications: Current Medications Acetaminophen (Tylenol 325mg Tab) 650 mg PO Q6 PRN PRN Reason: Pain, moderate (4-7) Last Admin: 05/04/18 18:31 Dose: 650 mg Albuterol/Ipratropium (Duoneb 3 Mg/0.5 Mg (3 Ml) Ud) 3 ml INH RQ4 [facility] Last Admin: 05/04/18 15:14 Dose: 3 ml Home Med (Cyclosporine [Restasis]) 1 drop OU Q12 [facility] Vancomycin HCl 1 gm/ Sodium (Chloride) 250 mls @ 166.667 mls/hr IVPB Q12 [facility]; Protocol Last Admin: 05/04/18 08:41 Dose: 166.667 mls/hr Insulin Detemir (Levemir) 40 units SC HS [facility] Last Admin: 05/03/18 22:35 Dose: Not Given Insulin Human Lispro (Humalog) 0 units SC ACHS [facility] Last Admin: 05/04/18 16:14 Dose: Not Given Insulin Human Lispro (Humalog) 8 units SC AC [facility] Last Admin: 05/04/18 16:14 Dose: 8 units Losartan Potassium (Cozaar) 100 mg PO DAILY [facility] Last Admin: 05/04/18 08:41 Dose: 100 mg Magnesium Oxide (Mag-Ox) 400 mg PO BID [facility] Last Admin: 05/04/18 16:14 Dose: 400 mg Metformin HCl (Glucophage) 500 mg PO BIDWM [facility] Last Admin: 05/04/18 16:14 Dose: 500 mg Pantoprazole Sodium (Protonix Inj) 40 mg IVP DAILY [facility] Last Admin: 05/04/18 08:42 Dose: 40 mg Promethazine HCl/Codeine (Phenergan/Codeine Oral Syrup) 10 ml PO Q6 PRN PRN Reason: Cough Last Admin: 05/01/18 12:24 Dose: 10 ml Sertraline HCl (Zoloft) 25 mg PO DAILY [facility] Last Admin: 05/04/18 08:42 Dose: 25 mg Sitagliptin Phosphate (Januvia) 100 mg PO DAILY [facility] Last Admin: 05/04/18 08:42 Dose: 100 mg Tiotropium [place] (Spiriva) 18 mcg IH DAILY [facility] Last Admin: 05/04/18 08:42 Dose: 18 mcg - Labs Labs: 05/02/18 06:05 05/02/18 06:05 Assessment and Plan (1) Abscess Status: Acute (2) Cellulitis Status: Acute (3) Diabetes mellitus with hyperglycemia Status: Acute
[2018-05-04] MEDS: Insulin Detemir 100 Units/ml Inj SC SCH (22:15)
[2018-05-05] MEDS: Albuterol-Ipratrop 3 mg / 0.5 (3 ml) UD INH SCH ×7 (00:16→23:10)
--- NOTE | 2018-05-05 03:52 | PN ---
DATE: 05/04/2018 ENDOCRINOLOGY FOLLOWUP NOTE LOCATION: Room 667. This is a 77-year-old female with recent uncontrolled type 2 insulin-requiring diabetes, now being followed closely for metabolic management. She has ongoing IV antibiotic management for a neck abscess with recent incision and drainage undertaken thereof. Her glucose values have ranged today from 180 to 229 and 247 mg/dL. It was 114 at bedtime last night. So at this time, we will modify once again her basal and bolus insulin regimen and increase the Humalog to 10 units subcu t.i.d. before meals to start tomorrow morning as ordered. We will also continue the same basal insulin given as Levemir at 40 units subcu at bedtime daily as given. We will titrate incrementally as indicated to optimize metabolic control. We will follow and advise accordingly. Katarina Landaverde MD
[2018-05-05] MEDS: Insulin Lispro (humaLOG) 100 Units/ml Inj SC SCH ×7 (07:00→22:36)
[2018-05-05 07:51] LABS: BLOOD UREA NITROGEN 9 mg/dl (7-17); GFR NON-AFRICAN AMERICAN > 60
[2018-05-05] MEDS: Magnesium Oxide 400 mg Tab UD PO SCH ×2 (09:41→16:41)
[2018-05-05] MEDS: Tiotropium 18 mcg Cap For Inhalation IH SCH (09:42)
--- NOTE | 2018-05-05 14:07 | PN ---
DATE: 05/05/2018 ENDOCRINOLOGY FOLLOWUP NOTE LOCATION: In room 667. SUBJECTIVE: This is a 77-year-old female with recent uncontrolled type 2 insulin-requiring diabetes, now being followed closely for metabolic management. Her glycemic levels have improved remarkably overnight as noted with glucose values ranging from 116 to 180 mg/dL. LABORATORY DATA: Her chemistry showed a BUN of 9, sodium 140, potassium 4.2, chloride 105, CO2 of 29, glucose 121, and creatinine 0.8. ASSESSMENT AND PLAN: So at this time, we will continue the same basal and bolus insulin regimen, which was modified overnight to allow for dose equilibration. We will continue her Humalog given as 10 units t.i.d. before meals to start today as ordered. We will continue her Levemir given as 40 units subcutaneously at bedtime daily to start tonight. We will also continue the oral hypoglycemic therapy with Januvia given as 100 mg daily and metformin at 500 mg b.i.d. as ordered. We will obtain serial chemistries and supplement accordingly as needed. We will follow. Katarina Landaverde MD
[2018-05-05] MEDS: Insulin Detemir 100 Units/ml Inj SC SCH (22:38)
[2018-05-06] MEDS: Albuterol-Ipratrop 3 mg / 0.5 (3 ml) UD INH SCH ×2 (03:01→07:57)
[2018-05-06] MEDS: Insulin Lispro (humaLOG) 100 Units/ml Inj SC SCH ×7 (06:31→22:51)
[2018-05-06] MEDS: Tiotropium 18 mcg Cap For Inhalation IH SCH (09:39)
[2018-05-06] MEDS: Magnesium Oxide 400 mg Tab UD PO SCH ×2 (09:41→16:54)
--- NOTE | 2018-05-06 13:49 | CP.PCM.PN ---
Subjective - Date & Time of Evaluation Date of Evaluation: 05/06/18 Time of Evaluation: 07:00 - Subjective Subjective: AFEB ON IV RX FOR D/C ON PO RX Objective - Vital Signs/Intake and Output Vital Signs (last 24 hours): Temp Pulse Resp BP Pulse Ox 98 F 74 20 168/78 H 98 05/06/18 08:33 05/06/18 08:33 05/06/18 08:33 05/06/18 09:40 05/06/18 08:33 - Medications Medications: Current Medications Acetaminophen (Tylenol 325mg Tab) 650 mg PO Q6 PRN PRN Reason: Pain, Mild (1-3) Home Med (Cyclosporine [Restasis]) 1 drop OU Q12 [facility] Vancomycin HCl 1 gm/ Sodium (Chloride) 250 mls @ 166.667 mls/hr IVPB Q12 [facility]; Protocol Last Admin: 05/06/18 09:43 Dose: 166.667 mls/hr Ibuprofen (Motrin Tab) 400 mg PO Q8 PRN PRN Reason: Pain, moderate (4-7) Last Admin: 05/05/18 17:55 Dose: 400 mg Insulin Detemir (Levemir) 40 units SC HS [facility] Last Admin: 05/05/18 22:38 Dose: Not Given Insulin Human Lispro (Humalog) 0 units SC ACHS [facility] Last Admin: 05/06/18 12:45 Dose: Not Given Insulin Human Lispro (Humalog) 10 units SC AC [facility] Last Admin: 05/06/18 12:46 Dose: 10 units Losartan Potassium (Cozaar) 100 mg PO DAILY [facility] Last Admin: 05/06/18 09:40 Dose: 100 mg Magnesium Oxide (Mag-Ox) 400 mg PO BID [facility] Last Admin: 05/06/18 09:41 Dose: 400 mg Metformin HCl (Glucophage) 500 mg PO BIDWM [facility] Last Admin: 05/06/18 09:40 Dose: 500 mg Pantoprazole Sodium (Protonix Inj) 40 mg IVP DAILY [facility] Last Admin: 05/06/18 09:39 Dose: 40 mg Sertraline HCl (Zoloft) 25 mg PO DAILY [facility] Last Admin: 05/06/18 09:39 Dose: 25 mg Sitagliptin Phosphate (Januvia) 100 mg PO DAILY [facility] Last Admin: 05/06/18 09:40 Dose: 100 mg Tiotropium [place] (Spiriva) 18 mcg IH DAILY [facility] Last Admin: 05/06/18 09:39 Dose: 18 mcg - Labs Labs: 05/02/18 06:05 05/05/18 05:30 - Constitutional Appears: Non-toxic, Chronically Ill - Head Exam Head Exam: NORMOCEPHALIC - Eye Exam Eye Exam: absent: Scleral icterus - ENT Exam ENT Exam: Mucous Membranes Dry - Neck Exam Neck Exam: absent: Lymphadenopathy - Respiratory Exam Respiratory Exam: Decreased Breath Sounds - Cardiovascular Exam Cardiovascular Exam: REGULAR RHYTHM - GI/Abdominal Exam GI & Abdominal Exam: Distended - Rectal Exam Rectal Exam: Deferred - Exam Exam: NORMAL INSPECTION Assessment and Plan (1) Abscess Status: Acute (2) Cellulitis Status: Acute (3) Diabetes mellitus with hyperglycemia Status: Acute - Assessment and Plan (Free Text) Assessment: WOUND HEALING D/C ON PO RX ONCE CLEARED BY SURGERY
--- NOTE | 2018-05-06 14:04 | PN ---
DATE: 05/06/2018 ENDO FOLLOWUP NOTE LOCATION: Room 667. SUBJECTIVE: This is a 77-year-old female with recent uncontrolled type 2 insulin-requiring diabetes, now being followed closely for metabolic management. Her glycemic levels are fluctuating, but improved overnight with glucose values ranging from 116 to 180 mg/dL. LABORATORY DATA: Her latest chemistry showed a BUN of 9, sodium 140, potassium 4.2, chloride 105, CO2 of 29, glucose 121, and creatinine 0.8. ASSESSMENT AND PLAN: So, at this time, we will continue the same basal and bolus insulin regimen which was modified yesterday to allow for dose equilibration. We will continue the Humalog given as 10 units subcutaneous t.i.d. before meals as ordered. We will continue the same basal insulin given as Levemir at 40 units subcutaneous at bedtime daily as given. We will obtain serial chemistries and supplement accordingly as needed. Katarina Landaverde MD
[2018-05-06] MEDS: Insulin Detemir 100 Units/ml Inj SC SCH (23:01)
[2018-05-07] MEDS: Tiotropium 18 mcg Cap For Inhalation IH SCH (09:01)
[2018-05-07] MEDS: Magnesium Oxide 400 mg Tab UD PO SCH (09:01)
[2018-05-07] MEDS: Insulin Lispro (humaLOG) 100 Units/ml Inj SC SCH ×4 (09:02→12:10)
[2018-05-07 09:18] VITALS: BP 154/74; PULSE 70; RESP 18; TEMP 98.1
[2018-05-07] MEDS ORDERED: Insulin Lispro (humaLOG) 100 Units/ml Inj SC SCH (16:30)
--- NOTE | 2018-05-07 19:29 | PN ---
DATE: 05/07/2018 ENDOCRINOLOGY FOLLOWUP NOTE LOCATION: Room #667. SUBJECTIVE: This is a 77-year-old female with recent uncontrolled type 2 insulin-requiring diabetes, now being followed closely for metabolic management. Her glycemic levels were low normal today as noted with glucose levels ranging from 77 to 93 and 135 mg/dL. So at this time, we will lower and modify her basal and bolus insulin regimen and lower the Humalog down to 8 units t.i.d. before meals, to start at dinnertime today as ordered. We will continue the low-dose correction scale using the same Humalog insulin as given. We will obtain serial chemistries and supplement accordingly as needed. We will also lower the Levemir down to 34 units subcutaneous at bedtime daily, to start tonight. We will obtain serial chemistries and supplement accordingly as needed. We will follow. Katarina Landaverde MD
[2018-05-07] MEDS ORDERED: Insulin Detemir 100 Units/ml Inj SC SCH (22:00)
[2018-05-08 03:11] VITALS: O2SAT 94
== END 2018-05-07 13:20 | disposition home or self-care (01) | DRG 603 ==
LOC: H.ER 23:59 → H.ERHOLD 04-29 01:22 → H.MEDSURG1 04-29 03:58
PROVIDERS: ADMIT Family Medicine; ATTEND Family Medicine
DX: L03.221 Cellulitis of neck (principal); E87.1 Hypo-osmolality and hyponatremia; J44.0 Chronic obstructive pulmonary disease with (acute) lower respiratory infection; L02.11 Cutaneous abscess of neck; L72.3 Sebaceous cyst; Z59.0 Homelessness; Z79.4 Long term (current) use of insulin; Z90.49 Acquired absence of other specified parts of digestive tract; Z90.710 Acquired absence of both cervix and uterus; G89.29 Other chronic pain; H26.9 Unspecified cataract; I83.93 Asymptomatic varicose veins of bilateral lower extremities; M19.90 Unspecified osteoarthritis, unspecified site; M54.5 Low back pain; M25.569 Pain in unspecified knee; Z79.899 Other long term (current) drug therapy; E11.65 Type 2 diabetes mellitus with hyperglycemia; E78.00 Pure hypercholesterolemia, unspecified; E78.5 Hyperlipidemia, unspecified; E86.0 Dehydration; I11.0 Hypertensive heart disease with heart failure; I50.9 Heart failure, unspecified; J20.9 Acute bronchitis, unspecified; K21.9 Gastro-esophageal reflux disease without esophagitis

== ENCOUNTER 2018-05-11 20:10 | Emergency (ER) | payer MEDICARE, MEDICAID ==
[2018-05-11 20:11] VITALS: BMI 33.5
[2018-05-11 20:17] VITALS: TEMP 97.9
[2018-05-11 20:42] LABS: BASO # 0.1 K/uL (0.0-0.2); BASO % 1.1 % (0.0-2.0); EOS # 0.3 K/uL (0.0-0.7); EOS % 2.9 % (0.0-4.0); HEMOGLOBIN 11.8 g/dL (12.0-16.0); LYMPH # 2.5 K/uL (1.0-4.3); LYMPH % 27.7 % (20.0-40.0); MEAN CELL VOLUME 84.4 fl (81.0-99.0); MEAN CORPUSCULAR HGB CONC 33.2 g/dL (33.0-37.0); MEAN PLATELET VOLUME 8.7 fl (7.2-11.7); MONO # 0.7 K/uL (0.0-0.8); MONO % 7.8 % (0.0-10.0); NEUT # 5.5 K/uL (1.8-7.0); NEUT % 60.5 % (50.0-75.0); NRBC % 0.2 % (0.0-0.0); RBC 4.22 Mil/uL (3.80-5.20); RED CELL DISTRIBUTION WIDTH 12.8 % (11.5-14.5)
[2018-05-11] MEDS ORDERED: Insulin Regular 100 units/ml IV ONE (20:44)
[2018-05-11 21:00] LABS: B-TYPE NATRIURETIC PEPTIDE 68.3 pg/ml (0-900)
[2018-05-11 21:02] LABS: ALB/GLOB RATIO 1.1 (1.0-2.1); ALBUMIN 3.7 g/dL (3.5-5.0); CALCIUM 8.9 mg/dL (8.4-10.2)
--- NOTE | 2018-05-11 21:02 | ED PDOC ---
Lower Extremity Pain/Injury Time Seen by Provider: 05/11/18 20:21 Chief Complaint (Nursing): Lower Extremity Problem/Injury Chief Complaint (Provider): Lower Extremity Swelling History Per: Patient History/Exam Limitations: no limitations Onset/Duration Of Symptoms: Days (x1) Current Symptoms Are (Timing): Still Present Additional Complaint(s): Meli Zhu, a 77 year old homeless female with a past medical history of hypertension, diabetes, COPD and recent admit for cellulitis, presents to the ED complaining of lower extremity swelling worsening today and headache. Patient states her edema is chronic in nature. She admits to having a chronic cough and denies chest pain, nausea, vomiting, and shortness of breath. PCP: Meli Montesinos Past Medical History Reviewed: Historical Data, Nursing Documentation, Vital Signs Vital Signs: Last Vital Signs Temp 97.9 F 05/11/18 20:12 Pulse 80 05/11/18 20:12 Resp 18 05/11/18 20:12 BP 188/75 H 05/11/18 20:12 Pulse Ox 100 05/11/18 20:12 - Medical History PMH: Arthritis, Asthma, CHF, COPD, Diabetes, HTN, Hypercholesterolemia, Peripheral Edema, Chronic Pain (back and legs) Denies: HIV, Chronic Kidney Disease - Surgical History Surgical History: Cholecystectomy - Family History Family History: States: Unknown Family Hx - Living Arrangements Living Arrangements: Other (homeless) - Immunization History Hx Tetanus Toxoid Vaccination: No Hx Influenza Vaccination: No Hx Pneumococcal Vaccination: No - Home Medications Home Medications: Ambulatory Orders Medication Instructions Recorded Albuterol Sulfate [Proair Hfa] 2 puff IH Q4 PRN 04/13/18 Diclofenac Sodium [Voltaren] 100 gm TP TID PRN #60 gel..gram. 04/13/18 Fluticasone/Salmeterol [Advair 1 puff IH Q12 04/13/18 250-50 Diskus] Insulin Detemir [Levemir] 40 unit SC HS 04/13/18 Insulin Detemir [Levemir] 45 unit SC QAM 04/13/18 Losartan/Hydrochlorothiazide 1 tab PO DAILY 04/13/18 [Hyzaar 100-25 Tablet] MetFORMIN [glucoPHAGE] 1,000 mg PO BID 04/13/18 SITagliptin [Januvia] 100 mg PO DAILY 04/13/18 Sertraline [Zoloft] 25 mg PO DAILY 04/13/18 Tiotropium [Spiriva] 18 mcg IH DAILY 04/13/18 cycloSPORINE [Restasis] 1 drop OU Q12 04/13/18 traMADol [Ultram] 50 mg PO TID #15 tab 04/25/18 Clindamycin [Cleocin] 300 mg PO Q8 #21 cap 05/07/18 Lactobacillus Acidophilus [Bacid 1 cap PO BID #14 cap 05/07/18 Acidophilus] - Allergies Allergies/Adverse Reactions: Allergies Allergy/AdvReac Type Severity Reaction Status Date / Time celecoxib [From Celebrex] Allergy RASH Verified 04/29/18 00:08 ibuprofen [From Motrin] Allergy RASH Verified 04/29/18 00:08 Penicillins Allergy RASH Verified 04/29/18 00:08 Review of Systems ROS Statement: Except As Marked, All Systems Reviewed And Found Negative Cardiovascular: Positive for: Edema (lower extremity). Negative for: Chest Pain Respiratory: Positive for: Cough (chronic). Negative for: Shortness of Breath Gastrointestinal: Negative for: Nausea, Vomiting Neurological: Positive for: Headache Physical Exam - Reviewed Nursing Documentation Reviewed: Yes Vital Signs Reviewed: Yes - Physical Exam Head Exam: Positive for: ATRAUMATIC, NORMAL INSPECTION, NORMOCEPHALIC Cardiovascular/Chest: Positive for: Regular Rate, Rhythm. Negative for: Murmur Extremity: Positive for: Other (edema +2 to bilateral lower extremities. unchanged from x1.5 weeks ago) - Laboratory Results Result Diagrams: 05/11/18 20:39 05/11/18 20:39 - ECG O2 Sat by Pulse Oximetry: 100 (RA) Medical Decision Making Medical Decision Making: Time: 2020 Initial impression: 77 year old female with headache and chronic lower extremity swelling Initial plan: --labs --EKG --UA --Tylenol 975 mg PO --glucOPHAGE 1000 mg PO --insulin human regular 10 units IV Time: 2035 --POC glucose: 482mg/dL Time: 2154 --POC glucose: 327mg/dL --UA: negative for infection Time: 511 --Labs reviewed: no significant clinical abnormality. Upon provider reevaluation, patient is medically stable and requires no further treatment in the ED at this time. Patient will be discharged home. Counseling was provided and all questions were answered regarding diagnosis. There is agreement to discharge plan. Return if symptoms persist or worsen. Clinical Impression: Dependent edema Scribe Attestation: Documented by Joby Pete and Katarina Villatoro, acting as scribes for Mika Keys MD. Provider Scribe Attestation: All medical record entries made by the Scribe were at my direction and personally dictated by me. I have reviewed the chart and agree that the record accurately reflects my personal performance of the history, physical exam, medical decision making, and the department course for this patient. I have also personally directed, reviewed, and agree with the discharge instructions and disposition. Disposition - Clinical Impression Clinical Impression: Dependent edema - Patient ED Disposition Is Patient to be Admitted: No Counseled Patient/Family Regarding: Studies Performed, Diagnosis - Disposition Disposition: Routine/Home Disposition Time: 05:12 Condition: STABLE Instructions: Dependent Edema (DC) Forms: [employer] (Slovenian) Print Language: DANISH
[2018-05-12 00:56] LABS: SQUAMOUS EPITHIAL 2 /hpf (0-5); URINE BILIRUBIN NEGATIVE (NEGATIVE); URINE BLOOD SMALL (NEGATIVE); URINE CLARITY CLEAR (Clear); URINE COLOR STRAW (YELLOW); URINE GLUCOSE (UA) >=500 mg/dL (Normal); URINE LEUKOCYTE ESTERASE SMALL Leu/uL (Negative); URINE PROTEIN 30 mg/dL (NEGATIVE); URINE UROBILINOGEN 0.2-1.0 mg/dL (0.2-1.0)
[2018-05-12 07:00] VITALS: BP 145/78; PULSE 78; RESP 16; O2SAT 98
--- NOTE | 2018-05-12 13:24 | CARD ---
APPROVED REPORT Date of service: 05/11/2018 EKG Measurement Heart [id number] <Conclusion> Normal sinus rhythm Normal ECG
== END 2018-05-12 06:45 | disposition home or self-care (01) ==
LOC: H.ER 20:10
DX: R60.0 Localized edema (principal); E11.9 Type 2 diabetes mellitus without complications; G89.29 Other chronic pain; I11.0 Hypertensive heart disease with heart failure; J44.9 Chronic obstructive pulmonary disease, unspecified; Z79.4 Long term (current) use of insulin; Z79.899 Other long term (current) drug therapy; Z88.6 Allergy status to analgesic agent; Z88.0 Allergy status to penicillin

== ENCOUNTER 2018-05-15 19:14 | Emergency (ER) | payer MEDICARE, MEDICAID ==
[2018-05-15 19:14] VITALS: BMI 33.5
[2018-05-15] MEDS ORDERED: Sodium Chloride 0.9% 1,000 ML IV STA (19:34)
[2018-05-15 20:28] LABS: BASO # 0.1 K/uL (0.0-0.2); EOS # 0.2 K/uL (0.0-0.7); EOS % 2.8 % (0.0-4.0); HEMOGLOBIN 12.4 g/dL (12.0-16.0); LYMPH # 2.3 K/uL (1.0-4.3); LYMPH % 27.8 % (20.0-40.0); MEAN CORPUSCULAR HEMOGLOBIN 28.1 pg (27.0-31.0); MEAN PLATELET VOLUME 9.1 fl (7.2-11.7); MONO # 0.6 K/uL (0.0-0.8); NEUT % 61.4 % (50.0-75.0); NRBC % 0.2 % (0.0-0.0); RBC 4.41 Mil/uL (3.80-5.20); RED CELL DISTRIBUTION WIDTH 13.3 % (11.5-14.5); WHITE BLOOD COUNT 8.2 K/uL (4.8-10.8)
--- NOTE | 2018-05-15 20:36 | ED PDOC ---
HPI: Headache Time Seen by Provider: 05/15/18 19:31 Chief Complaint (Nursing): Headache Chief Complaint (Provider): Headache History Per: Patient History/Exam Limitations: no limitations Onset/Duration Of Symptoms: Days (x1) Current Symptoms Are (Timing): Still Present Additional Complaint(s): 77 year old female, well-known to ED for multiple visits, presents to ED with complaints of headache, nausea, and vomiting for 1 day. Patient is homeless and has history of bed-seeking behavior. PCP: none provided Past Medical History Reviewed: Historical Data, Nursing Documentation, Vital Signs Vital Signs: Last Vital Signs Temp 98.0 F 05/15/18 19:17 Pulse 99 H 05/15/18 19:17 Resp 16 05/15/18 19:17 BP 102/56 L 05/15/18 19:17 Pulse Ox 97 05/15/18 19:17 - Medical History PMH: Arthritis, Asthma, CHF, COPD, Diabetes, HTN, Hypercholesterolemia, Peripheral Edema, Chronic Pain (back and legs) Denies: HIV, Chronic Kidney Disease - Surgical History Surgical History: Cholecystectomy - Family History Family History: States: Unknown Family Hx - Immunization History Hx Tetanus Toxoid Vaccination: No Hx Influenza Vaccination: No Hx Pneumococcal Vaccination: No - Home Medications Home Medications: Ambulatory Orders Medication Instructions Recorded Albuterol Sulfate [Proair Hfa] 2 puff IH Q4 PRN 04/13/18 Diclofenac Sodium [Voltaren] 100 gm TP TID PRN #60 gel..gram. 04/13/18 Fluticasone/Salmeterol [Advair 1 puff IH Q12 04/13/18 250-50 Diskus] Insulin Detemir [Levemir] 40 unit SC HS 04/13/18 Insulin Detemir [Levemir] 45 unit SC QAM 04/13/18 Losartan/Hydrochlorothiazide 1 tab PO DAILY 04/13/18 [Hyzaar 100-25 Tablet] MetFORMIN [glucoPHAGE] 1,000 mg PO BID 04/13/18 SITagliptin [Januvia] 100 mg PO DAILY 04/13/18 Sertraline [Zoloft] 25 mg PO DAILY 04/13/18 Tiotropium [Spiriva] 18 mcg IH DAILY 04/13/18 cycloSPORINE [Restasis] 1 drop OU Q12 04/13/18 traMADol [Ultram] 50 mg PO TID #15 tab 04/25/18 Clindamycin [Cleocin] 300 mg PO Q8 #21 cap 05/07/18 Lactobacillus Acidophilus [Bacid 1 cap PO BID #14 cap 05/07/18 Acidophilus] - Allergies Allergies/Adverse Reactions: Allergies Allergy/AdvReac Type Severity Reaction Status Date / Time celecoxib [From Celebrex] Allergy RASH Verified 05/15/18 19:16 ibuprofen [From Motrin] Allergy RASH Verified 05/15/18 19:16 Penicillins Allergy RASH Verified 05/15/18 19:16 Review of Systems ROS Statement: Except As Marked, All Systems Reviewed And Found Negative Gastrointestinal: Positive for: Nausea, Vomiting Neurological: Positive for: Headache Physical Exam - Reviewed Nursing Documentation Reviewed: Yes Vital Signs Reviewed: Yes - Physical Exam Appears: Positive for: Non-toxic, No Acute Distress Head Exam: Positive for: ATRAUMATIC, NORMAL INSPECTION, NORMOCEPHALIC Skin: Positive for: Normal Color Eye Exam: Positive for: Normal appearance, EOMI, PERRL. Negative for: Nystagmus ENT: Positive for: Normal ENT Inspection Neck: Positive for: Normal Cardiovascular/Chest: Positive for: Regular Rate, Rhythm. Negative for: Chest Non Tender Respiratory: Positive for: Normal Breath Sounds. Negative for: Wheezing, Respiratory Distress Gastrointestinal/Abdominal: Positive for: Normal Exam, Soft. Negative for: Tenderness Back: Positive for: Normal Inspection. Negative for: L CVA Tenderness, R CVA Tenderness Extremity: Positive for: Normal ROM (upper/lower) Neurologic/Psych: Positive for: Alert, system safety manager II-XII (grossly intact), Oriented. Negative for: Motor/Sensory Deficits - Laboratory Results Result Diagrams: 05/15/18 20:19 05/15/18 20:19 - ECG O2 Sat by Pulse Oximetry: 97 (RA) Pulse Ox Interpretation: Normal Medical Decision Making Medical Decision Making: Initial Impression: 77 year old female with headache, nausea, and vomiting. Initial Plan: * EKG * Labs * IV fluids * Reglan 10mg IVPB * Accucheck Time: 1934 --Old charts reviewed: patient was recently evaluated in ED on 05/11/18 for similar complaints with normal work-up save hyperglycemia noted on labs. Time: 0204 --Labs reviewed, show no clinically significant abnormalities with exception of elevated blood glucose. Ordered IV fluid and IV insulin. Time: 05 --After 2 liters of normal saline and 20 unit of insulin, patients blood sugar is normal. Patient is medically stable for discharge home. Diagnosis hyperglycemia secondary to noncompliance. Scribe Attestation: Documented by Katarina Villatoro, acting as a scribe for Mika Keys MD. Provider Scribe Attestation: All medical record entries made by the Scribe were at my direction and personally dictated by me. I have reviewed the chart and agree that the record accurately reflects my personal performance of the history, physical exam, medical decision making, and the department course for this patient. I have also personally directed, reviewed, and agree with the discharge instructions and disposition. Disposition - Clinical Impression Clinical Impression: Hyperglycemia - Disposition Disposition Time: 05:42 Condition: STABLE Instructions: Hyperglycemia, Adult, Diabetes and Diet Forms: [employer] (Sri Lankan) Print Language: AZERBAIJANI
[2018-05-15 20:42] LABS: ALB/GLOB RATIO 1.2 (1.0-2.1); ALBUMIN 3.9 g/dL (3.5-5.0); ALT/SGPT 28 U/L (9-52); AST/SGOT 23 U/L (14-36); BLOOD UREA NITROGEN 28 mg/dl (7-17); CALCIUM 9.6 mg/dL (8.4-10.2); GFR NON-AFRICAN AMERICAN 54
[2018-05-15] MEDS ORDERED: Insulin Regular 100 units/ml IV ONE (20:55)
[2018-05-15] MEDS ORDERED: Insulin Regular 100 units/ml ONE (21:28)
[2018-05-16] MEDS ORDERED: Insulin Regular 100 units/ml IV ONE (02:04)
[2018-05-16] MEDS ORDERED: Sodium Chloride 0.9% 1,000 ML IV STA (02:04)
[2018-05-16 02:18] VITALS: RESP 18
[2018-05-16 05:55] VITALS: BP 170/81; PULSE 84; TEMP 98.2; O2SAT 95
--- NOTE | 2018-05-16 07:52 | CARD ---
APPROVED REPORT Date of service: 05/15/2018 EKG Measurement Heart [id number] VT [id number] [id number] <Conclusion> Normal sinus rhythm Normal ECG
== END 2018-05-16 06:20 | disposition home or self-care (01) ==
LOC: H.ER 19:14
DX: E11.65 Type 2 diabetes mellitus with hyperglycemia (principal); Z79.4 Long term (current) use of insulin; E78.00 Pure hypercholesterolemia, unspecified; G89.29 Other chronic pain; I11.0 Hypertensive heart disease with heart failure; Z88.0 Allergy status to penicillin; Z88.6 Allergy status to analgesic agent; Z91.14 Patient's other noncompliance with medication regimen; Z59.0 Homelessness
CPT/HCPCS: 80053; 82948; 85025; 93005; 96374; 96375; 96376; 99285; J2765; J7030

== ENCOUNTER 2018-05-18 18:04 | Inpatient (IN) | payer MEDICAID, MEDICARE ==
[2018-05-18 18:04] VITALS: BMI 33.5
[2018-05-18] MEDS ORDERED: Albuterol-Ipratrop 3 mg / 0.5 (3 ml) UD INH STA (18:42)
[2018-05-18 18:50] LABS: VENOUS BLOOD GAS BASE EXCESS 2.7 mmol/L (0.0-2.0); VENOUS BLOOD GAS PCO2 50 mmHg (40-60); VENOUS BLOOD GAS PO2 24 mm/Hg (30-55); VENOUS BLOOD PH 7.37 (7.32-7.43)
[2018-05-18 18:52] LABS: BASO # 0.1 K/uL (0.0-0.2); BASO % 1.4 % (0.0-2.0); EOS # 0.3 K/uL (0.0-0.7); EOS % 3.4 % (0.0-4.0); HEMOGLOBIN 12.1 g/dL (12.0-16.0); LYMPH # 2.9 K/uL (1.0-4.3); LYMPH % 32.3 % (20.0-40.0); MEAN CELL VOLUME 83.3 fl (81.0-99.0); MEAN CORPUSCULAR HEMOGLOBIN 28.2 pg (27.0-31.0); MEAN CORPUSCULAR HGB CONC 33.8 g/dL (33.0-37.0); MEAN PLATELET VOLUME 9.2 fl (7.2-11.7); MONO # 0.6 K/uL (0.0-0.8); NEUT % 55.9 % (50.0-75.0); RBC 4.29 Mil/uL (3.80-5.20); RED CELL DISTRIBUTION WIDTH 13.3 % (11.5-14.5); WHITE BLOOD COUNT 8.9 K/uL (4.8-10.8)
--- NOTE | 2018-05-18 18:54 | RAD ---
Date of service: 05/18/2018 HISTORY: sob COMPARISON: Portable chest 05/02/2018. FINDINGS: LUNGS: No active pulmonary disease. PLEURA: No significant pleural effusion identified, no pneumothorax apparent. CARDIOVASCULAR: No aortic atherosclerotic calcification present. Stable cardiomegaly. No pulmonary vascular congestion. OSSEOUS STRUCTURES: No significant abnormalities. VISUALIZED UPPER ABDOMEN: Normal. OTHER FINDINGS: Prior right PICC now removed. IMPRESSION: Stable cardiomegaly. No definite pulmonary vascular congestion and no definite infiltrate, pleural effusion or pneumothorax appreciable. Prior right PICC now removed.
[2018-05-18 18:59] LABS: PROTHROMBIN TIME 11.5 Seconds (9.8-13.1)
--- NOTE | 2018-05-18 19:01 | ED PDOC ---
HPI: CCC, URI, Sore Throat Time Seen by Provider: 05/18/18 18:16 Chief Complaint (Nursing): Chest Pain Chief Complaint (Provider): Cough History Per: Patient History/Exam Limitations: no limitations Onset/Duration Of Symptoms: Days (2x) Current Symptoms Are (Timing): Still Present Associated Symptoms: Cough (yellow phlegm), Other ((+) shortness of breath, chest pain, leg swelling. (-) hemoptysis.). denies: Fever, Chills, Vomiting, Diarrhea Severity: Moderate Additional Complaint(s): 77 year old female with a past medical history of chronic obstructive pulmonary disease, diabetes, hypertension, and homelessness presents to the ED for an evaluation of a cough (associated with yellow phlegm) accompanied by chest pain, and shortness of breath that started 2x days ago. Patient reports having associated symptoms of leg swelling, and denies having hemoptysis, fevers, chills, vomiting, and diarrhea. Patient reports that she spends a lot of time outside in the cold. PMD: Meli Bloom MD Past Medical History Reviewed: Historical Data, Nursing Documentation, Vital Signs Vital Signs: Last Vital Signs Temp 98.4 F 05/18/18 18:07 Pulse 77 05/18/18 18:07 Resp 18 05/18/18 18:07 BP 159/77 H 05/18/18 18:07 Pulse Ox 96 05/18/18 18:07 - Medical History PMH: Arthritis, Asthma, CHF, COPD, Diabetes, HTN, Hypercholesterolemia, Peripheral Edema, Chronic Pain (back and legs) Denies: HIV, Chronic Kidney Disease - Surgical History Surgical History: Cholecystectomy - Family History Family History: States: Unknown Family Hx - Social History Current smoker - smoking cessation education provided: No Alcohol: None Drugs: Denies - Immunization History Hx Tetanus Toxoid Vaccination: No Hx Influenza Vaccination: No Hx Pneumococcal Vaccination: No - Home Medications Home Medications: Ambulatory Orders Medication Instructions Recorded RX: Albuterol Sulfate [Proair Hfa] 2 puff IH Q4 PRN 04/13/18 RX: Diclofenac Sodium [Voltaren] 100 gm TP TID PRN #60 gel..gram. 04/13/18 RX: Fluticasone/Salmeterol [Advair 1 puff IH Q12 04/13/18 250-50 Diskus] RX: Insulin Detemir [Levemir] 40 unit SC HS 04/13/18 RX: Insulin Detemir [Levemir] 45 unit SC QAM 04/13/18 RX: Losartan/Hydrochlorothiazide 1 tab PO DAILY 04/13/18 [Hyzaar 100-25 Tablet] RX: MetFORMIN [glucoPHAGE] 1,000 mg PO BID 04/13/18 RX: SITagliptin [Januvia] 100 mg PO DAILY 04/13/18 RX: Sertraline [Zoloft] 25 mg PO DAILY 04/13/18 RX: Tiotropium [Spiriva] 18 mcg IH DAILY 04/13/18 RX: cycloSPORINE [Restasis] 1 drop OU Q12 04/13/18 RX: traMADol [Ultram] 50 mg PO TID #15 tab 04/25/18 Lactobacillus Acidophilus [Bacid 1 cap PO BID #14 cap 05/07/18 Acidophilus] RX: Clindamycin [Cleocin] 300 mg PO Q8 #21 cap 05/07/18 - Allergies Allergies/Adverse Reactions: Allergies Allergy/AdvReac Type Severity Reaction Status Date / Time celecoxib [From Celebrex] Allergy RASH Verified 05/18/18 18:07 ibuprofen [From Motrin] Allergy RASH Verified 05/18/18 18:07 Penicillins Allergy RASH Verified 05/18/18 18:07 Review of Systems ROS Statement: Except As Marked, All Systems Reviewed And Found Negative Constitutional: Negative for: Fever, Chills Cardiovascular: Positive for: Chest Pain Respiratory: Positive for: Cough (yellow phlegm), Shortness of Breath. Negative for: Hemoptysis Gastrointestinal: Negative for: Vomiting, Diarrhea Musculoskeletal: Positive for: Other (bilateral leg swelling) Physical Exam - Reviewed Nursing Documentation Reviewed: Yes Vital Signs Reviewed: Yes - Physical Exam Appears: Positive for: Non-toxic, In Acute Distress (mild respiratory distress). Negative for: Well (tired appearing) Head Exam: Positive for: ATRAUMATIC, NORMOCEPHALIC Skin: Positive for: Warm, Dry Eye Exam: Positive for: EOMI, PERRL ENT: Positive for: Pharynx Is (clear) Neck: Positive for: Painless ROM, Supple Cardiovascular/Chest: Positive for: Regular Rate, Rhythm. Negative for: Murmur Respiratory: Positive for: Rales (right lower lung field), Rhonchi (diffusely) Gastrointestinal/Abdominal: Positive for: Soft. Negative for: Tenderness Back: Positive for: Normal Inspection. Negative for: Muscle Spasm Extremity: Positive for: Other (bilaterla doughy leg edema) Lymphatic: Negative for: Adenopathy Neurologic/Psych: Positive for: Alert, Oriented (3x) - Laboratory Results Result Diagrams: 05/19/18 06:16 05/19/18 06:16 - ECG O2 Sat by Pulse Oximetry: 96 (RA) Pulse Ox Interpretation: Normal Medical Decision Making Medical Decision Makin:16 Initial impression:77 year old female with a cough. Differential diagnoses include, but are not limited to bronchitis, pneumonia, chronic obstructive pulmonary edema exacerbation, congestive heart failure, and aortic coronary syndrome. Initial plan: * XRay chest portable * type and screen * VBG * EKG * b-type natriuretic peptide * CMP * magnesium * phosphorous * troponin I * udip * CBC * PT and PTT * glucose, blood, poc * duoneb 3 ml UD 3ml INH * peak flow pre post * influenza a b * reevaluation 18:51 XRay chest read and reviewed by radiologist FINDINGS: LUNGS: No active pulmonary disease. PLEURA: No significant pleural effusion identified, no pneumothorax apparent. CARDIOVASCULAR: No aortic atherosclerotic calcification present. Stable cardiomegaly. No pulmonary vascular congestion. OSSEOUS STRUCTURES: No significant abnormalities. VISUALIZED UPPER ABDOMEN: Normal. OTHER FINDINGS: Prior right PICC now removed. IMPRESSION: Stable cardiomegaly. No definite pulmonary vascular congestion and no definite infiltrate, pleural effusion or pneumothorax appreciable. Prior right PICC now removed. ------ Scribe Attestation: Documented bySteffanie Joshi, acting as a scribe for Ninfa Crum MD. Provider Scribe Attestation: All medical record entries made by the Scribe were at my direction and person ally dictated by me. I have reviewed the chart and agree that the record accurately reflects my personal performance of the history, physical exam, medical decision making, and the department course for this patient. I have also personally Disposition - Clinical Impression Clinical Impression: Asthma exacerbation, Chest pain Discussed With DrMakayla: Mello Cordova Doctor Will See Patient In The: Hospital Counseled Patient/Family Regarding: Studies Performed, Diagnosis - Disposition Disposition Time: 21:00 Condition: FAIR - Pt Status Changed To: Hospital Disposition Of: Observation - POA Present On Arrival: None
[2018-05-18 19:02] LABS: PARTIAL THROMBOPLASTIN TIME 31.2 Seconds (25.6-37.1)
[2018-05-18] MEDS ORDERED: Insulin Regular 100 units/ml SC STA (19:03)
[2018-05-18 19:39] LABS: ALB/GLOB RATIO 1.1 (1.0-2.1); ALBUMIN 3.9 g/dL (3.5-5.0); ALT/SGPT 30 U/L (9-52); AST/SGOT 27 U/L (14-36); B-TYPE NATRIURETIC PEPTIDE 448 pg/ml (0-900); BLOOD UREA NITROGEN 16 mg/dl (7-17); CALCIUM 8.9 mg/dL (8.4-10.2); GFR NON-AFRICAN AMERICAN > 60
[2018-05-18] MEDS ORDERED: Insulin Regular 100 units/ml IVP STA (19:50)
[2018-05-18] MEDS: Insulin Detemir 100 Units/ml Inj SC SCH ×2 (22:00→23:22)
[2018-05-18] MEDS ORDERED: Albuterol-Ipratrop 3 mg / 0.5 (3 ml) UD INH PRN (23:00)
[2018-05-18] MEDS: guaiFENesin DM 200 mg-20 mg/10 ml UD PO SCH (23:20)
[2018-05-18] MEDS: Insulin Regular 100 units/ml SC SCH (23:20)
[2018-05-19] MEDS: Insulin Regular 100 units/ml SC SCH ×4 (06:55→22:07)
[2018-05-19 08:01] LABS: HEMOGLOBIN 11.1 g/dL (12.0-16.0); MEAN CELL VOLUME 83.8 fl (81.0-99.0); MEAN CORPUSCULAR HGB CONC 33.4 g/dL (33.0-37.0); RBC 3.95 Mil/uL (3.80-5.20); RED CELL DISTRIBUTION WIDTH 13.1 % (11.5-14.5); WHITE BLOOD COUNT 8.8 K/uL (4.8-10.8)
[2018-05-19 08:09] LABS: ALBUMIN 3.3 g/dL (3.5-5.0); ALT/SGPT 26 U/L (9-52); AST/SGOT 26 U/L (14-36); BLOOD UREA NITROGEN 16 mg/dl (7-17); CALCIUM 8.8 mg/dL (8.4-10.2); GFR NON-AFRICAN AMERICAN > 60
[2018-05-19] MEDS: guaiFENesin DM 200 mg-20 mg/10 ml UD PO SCH ×3 (08:30→16:08)
[2018-05-19] MEDS: HCTZ/Losartan 12.5/50 Tab PO SCH (08:30)
[2018-05-19] MEDS: Enoxaparin 40 mg Syringe SC SCH (08:30)
[2018-05-19] MEDS ORDERED: guaiFENesin 200 mg/10 ml Syrup UD PO SCH (09:00)
[2018-05-19] MEDS: Potassium Chloride 20 mEq ER Tab PO SCH (11:38)
--- NOTE | 2018-05-19 12:21 | CP.PCM.CON ---
History of Present Illness - History of Present Illness History of Present Illness: This 77-year-old hypertensive diabetic female arrived in the emergency room complaining of a vague sense of chest discomfort quite unconnected to any physical activity. She has had approximately 10 visits to the emergency room within last month and a half for various symptoms. She reports that she has never been a smoker and has taken her medications quite regularly. There is no prior history of myocardial infarction or symptoms of congestive cardiac failure. Physical examination shows an elderly female was able to lie virtually flat in bed and breathes at 16 breaths per minute. Telemetry shows sinus rhythm at ph ysiological rates. Her blood pressure was 136/80 mmHg. Her jugular venous pressure was not elevated there was no edema over her lower extremity and the pedal pulses were well felt. There were no carotid bruits. The apex was in the fifth space the first and second heart sounds were normal. There was no murmur or gallop. There were no rales. Her abdomen was soft liver and spleen are not palpable. Her electro-cardial gram showed sinus rhythm with a normal EKG pattern. Echocardiogram on March 28 shows an identical pattern with no evidence of ischemic changes. Her lab data was noted. Troponin levels 3 were within normal limits. Impression: Atypical chest pain in a patient with hypertension and diabetes. There is no evidence of acute coronary syndrome and the patient may be allowed to return home to be worked up as an outpatient. Past Patient History - Infectious Disease Hx of Infectious Diseases: None - Past Medical History & Family History Past Medical History?: Yes - Past Social History Smoking Status: Never Smoked - CARDIAC Hx Congestive Heart Failure: Yes Hx Hypercholesterolemia: Yes Hx Hypertension: Yes Hx Peripheral Edema: Yes - PULMONARY Hx Asthma: Yes Hx Chronic Obstructive Pulmonary Disease (COPD): Yes - NEUROLOGICAL Hx Neurological Disorder: No - HEENT Hx HEENT Problems: Yes Hx Cataracts: Yes - RENAL Hx Chronic Kidney Disease: No - ENDOCRINE/METABOLIC Hx Endocrine Disorders: Yes Hx Diabetes Mellitus Type 2: Yes - HEMATOLOGICAL/ONCOLOGICAL Hx Human Immunodeficiency Virus (HIV): No - INTEGUMENTARY Hx Dermatological Problems: No - MUSCULOSKELETAL/RHEUMATOLOGICAL Hx Falls: Yes - GASTROINTESTINAL Hx Gastrointestinal Disorders: Yes Hx Constipation: Yes Hx Gastroesophageal Reflux: Yes - GENITOURINARY/GYNECOLOGICAL Hx Genitourinary Disorders: No - PSYCHIATRIC Hx Psychophysiologic Disorder: No Hx Substance Use: No - SURGICAL HISTORY Hx Cholecystectomy: Yes - ANESTHESIA Hx Anesthesia: Yes Hx Anesthesia Reactions: No Hx Malignant Hyperthermia: No Meds Allergies/Adverse Reactions: Allergies Allergy/AdvReac Type Severity Reaction Status Date / Time celecoxib [From Celebrex] Allergy RASH Verified 05/18/18 18:07 ibuprofen [From Motrin] Allergy RASH Verified 05/18/18 18:07 Penicillins Allergy RASH Verified 05/18/18 18:07 - Medications Medications: Current Medications Albuterol/Ipratropium (Duoneb 3 Mg/0.5 Mg (3 Ml) Ud) 3 ml INH RQ6 PRN PRN Reason: Shortness of Breath Enoxaparin Sodium (Lovenox) 40 mg SC DAILY [facility]; Protocol Last Admin: 05/19/18 08:30 Dose: 40 mg Guaifenesin/Dextromethorphan (Robitussin Dm) 10 ml PO TID [facility] Last Admin: 05/19/18 08:30 Dose: 10 ml HCTZ/Losartan Potassium (Hyzaar 12.5 Mg-50 Mg) 2 tab PO DAILY [facility] Last Admin: 05/19/18 08:30 Dose: 2 tab Insulin Detemir (Levemir) 40 units SC [facility] Last Admin: 05/18/18 23:22 Dose: 40 u Insulin Human Regular (Humulin R) 0 units SC [facility]; Protocol Last Admin: 05/19/18 11:38 Dose: 3 units Metformin HCl (Glucophage) 1,000 mg PO BIDWM [facility] Last Admin: 05/19/18 08:30 Dose: 1,000 mg Potassium Chloride (K-Dur 20 Meq Er Tab) 20 meq PO DAILY [facility] Last Admin: 05/19/18 11:38 Dose: 20 meq Sertraline HCl (Zoloft) 25 mg PO [facility] Sitagliptin Phosphate (Januvia) 100 mg PO DAILY [facility] Last Admin: 05/19/18 08:30 Dose: 100 mg Tramadol HCl (Ultram) 50 mg PO TID PRN PRN Reason: Pain, moderate (4-7) Last Admin: 05/18/18 23:26 Dose: 50 mg Results - Vital Signs Recent Vital Signs: Last Vital Signs Temp 97.7 F 05/19/18 11:58 Pulse 80 05/19/18 11:58 Resp 20 05/19/18 11:58 BP 148/76 05/19/18 11:58 Pulse Ox 96 05/19/18 11:58 - Labs Result Diagrams: 05/19/18 06:16 05/19/18 06:16 Labs: Laboratory Results - last 24 hr 05/18/18 05/18/18 05/18/18 18:39 18:41 18:41 WBC 8.9 RBC 4.29 Hgb 12.1 Hct 35.8 MCV 83.3 MCH 28.2 MCHC 33.8 RDW 13.3 Plt Count 180 MPV 9.2 Neut % (Auto) 55.9 Lymph % (Auto) 32.3 Hemphill % (Auto) 7.0 Eos % (Auto) 3.4 Baso % (Auto) 1.4 Neut # (Auto) 5.0 Lymph # (Auto) 2.9 Hemphill # (Auto) 0.6 Eos # (Auto) 0.3 Baso # (Auto) 0.1 PT INR APTT pO2 24 L VBG pH 7.37 VBG pCO2 50 VBG HCO3 25.5 VBG Total CO2 30.4 H VBG O2 Sat (Calc) 50.6 VBG Base Excess 2.7 H VBG Potassium 4.1 Sodium 132.0 133 Chloride 96.0 L 97 L Glucose 503 H* Lactate 2.2 H FiO2 21.0 Blood Gas Comments Lac=2.2 Crit Value Called To allyson Javier Crit Value Called By 22 Crit Value Read Back Y Blood Gas Notified Time 1849 Potassium 4.4 Carbon Dioxide 27 Anion Gap 13 BUN 16 Creatinine 0.7 Est GFR ( Amer) > 60 Est GFR (Non-Af Amer) > 60 POC Glucose (mg/dL) Random Glucose 488 H* Calcium 8.9 Phosphorus 3.0 Magnesium 1.8 Total Bilirubin 0.6 AST 27 ALT 30 Alkaline Phosphatase 107 Troponin I 0.0120 NT-Pro-B Natriuret Pep 448 Total Protein 7.5 Albumin 3.9 Globulin 3.6 Albumin/Globulin Ratio 1.1 Venous Blood Potassium 4.1 Influenza Typ A,B (EIA) 05/18/18 05/18/18 05/18/18 18:46 18:46 18:47 WBC RBC Hgb Hct MCV MCH MCHC RDW Plt Count MPV Neut % (Auto) Lymph % (Auto) Hemphill % (Auto) Eos % (Auto) Baso % (Auto) Neut # (Auto) Lymph # (Auto) Hemphill # (Auto) Eos # (Auto) Baso # (Auto) PT 11.5 INR 1.0 APTT 31.2 pO2 VBG pH VBG pCO2 VBG HCO3 VBG Total CO2 VBG O2 Sat (Calc) VBG Base Excess VBG Potassium Sodium Chloride Glucose Lactate FiO2 Blood Gas Comments Crit Value Called To Crit Value Called By Crit Value Read Back Blood Gas Notified Time Potassium Carbon Dioxide Anion Gap BUN Creatinine Est GFR ( Amer) Est GFR (Non-Af Amer) POC Glucose (mg/dL) 408 H* Random Glucose Calcium Phosphorus Magnesium Total Bilirubin AST ALT Alkaline Phosphatase Troponin I NT-Pro-B Natriuret Pep Total Protein Albumin Globulin Albumin/Globulin Ratio Venous Blood Potassium Influenza Typ A,B (EIA) Negative for flu a/b 05/18/18 05/18/18 05/19/18 21:04 22:35 03:00 WBC RBC Hgb Hct MCV MCH MCHC RDW Plt Count MPV Neut % (Auto) Lymph % (Auto) Hemphill % (Auto) Eos % (Auto) Baso % (Auto) Neut # (Auto) Lymph # (Auto) Hemphill # (Auto) Eos # (Auto) Baso # (Auto) PT INR APTT pO2 VBG pH VBG pCO2 VBG HCO3 VBG Total CO2 VBG O2 Sat (Calc) VBG Base Excess VBG Potassium Sodium Chloride Glucose Lactate FiO2 Blood Gas Comments Crit Value Called To Crit Value Called By Crit Value Read Back Blood Gas Notified Time Potassium Carbon Dioxide Anion Gap BUN Creatinine Est GFR ( Amer) Est GFR (Non-Af Amer) POC Glucose (mg/dL) 389 H 421 H* Random Glucose Calcium Phosphorus Magnesium Total Bilirubin AST ALT Alkaline Phosphatase Troponin I 0.0220 NT-Pro-B Natriuret Pep Total Protein Albumin Globulin Albumin/Globulin Ratio Venous Blood Potassium Influenza Typ A,B (EIA) 05/19/18 05/19/18 05/19/18 05:30 06:16 06:16 WBC 8.8 RBC 3.95 Hgb 11.1 L Hct 33.1 L MCV 83.8 MCH 28.0 MCHC 33.4 RDW 13.1 Plt Count 155 MPV Neut % (Auto) Lymph % (Auto) Hemphill % (Auto) Eos % (Auto) Baso % (Auto) Neut # (Auto) Lymph # (Auto) Hemphill # (Auto) Eos # (Auto) Baso # (Auto) PT INR APTT pO2 VBG pH VBG pCO2 VBG HCO3 VBG Total CO2 VBG O2 Sat (Calc) VBG Base Excess VBG Potassium Sodium 135 Chloride 99 Glucose Lactate FiO2 Blood Gas Comments Crit Value Called To Crit Value Called By Crit Value Read Back Blood Gas Notified Time Potassium 3.3 L Carbon Dioxide 26 Anion Gap 13 BUN 16 Creatinine 0.8 Est GFR ( Amer) > 60 Est GFR (Non-Af Amer) > 60 POC Glucose (mg/dL) Random Glucose 262 H Calcium 8.8 Phosphorus Magnesium Total Bilirubin 0.3 AST 26 ALT 26 Alkaline Phosphatase 78 Troponin I 0.0190 NT-Pro-B Natriuret Pep Total Protein 6.6 Albumin 3.3 L Globulin 3.3 Albumin/Globulin Ratio 1.0 Venous Blood Potassium Influenza Typ A,B (EIA) 05/19/18 05/19/18 06:39 10:56 WBC RBC Hgb Hct MCV MCH MCHC RDW Plt Count MPV Neut % (Auto) Lymph % (Auto) Hemphill % (Auto) Eos % (Auto) Baso % (Auto) Neut # (Auto) Lymph # (Auto) Hemphill # (Auto) Eos # (Auto) Baso # (Auto) PT INR APTT pO2 VBG pH VBG pCO2 VBG HCO3 VBG Total CO2 VBG O2 Sat (Calc) VBG Base Excess VBG Potassium Sodium Chloride Glucose Lactate FiO2 Blood Gas Comments Crit Value Called To Crit Value Called By Crit Value Read Back Blood Gas Notified Time Potassium Carbon Dioxide Anion Gap BUN Creatinine Est GFR ( Amer) Est GFR (Non-Af Amer) POC Glucose (mg/dL) 162 H 274 H Random Glucose Calcium Phosphorus Magnesium Total Bilirubin AST ALT Alkaline Phosphatase Troponin I NT-Pro-B Natriuret Pep Total Protein Albumin Globulin Albumin/Globulin Ratio Venous Blood Potassium Influenza Typ A,B (EIA)
--- NOTE | 2018-05-19 18:30 | CARD ---
APPROVED REPORT Date of service: 05/18/2018 EKG Measurement Heart [id number] <Conclusion> Normal sinus rhythm Nonspecific T wave abnormality Abnormal ECG
[2018-05-20 06:36] LABS: HEMOGLOBIN 11.6 g/dL (12.0-16.0); MEAN CELL VOLUME 83.9 fl (81.0-99.0); MEAN CORPUSCULAR HGB CONC 33.4 g/dL (33.0-37.0); RBC 4.13 Mil/uL (3.80-5.20); WHITE BLOOD COUNT 8.7 K/uL (4.8-10.8)
[2018-05-20 06:50] LABS: ALBUMIN 3.3 g/dL (3.5-5.0); ALT/SGPT 24 U/L (9-52); AST/SGOT 21 U/L (14-36); BLOOD UREA NITROGEN 10 mg/dl (7-17); CALCIUM 9.1 mg/dL (8.4-10.2); GFR NON-AFRICAN AMERICAN > 60
[2018-05-20] MEDS: Insulin Regular 100 units/ml SC SCH ×4 (07:07→23:20)
--- NOTE | 2018-05-20 07:33 | PN ---
DATE: 05/20/2018 SUBJECTIVE: The patient is seen and examined. Interim events noted. Consults noted and appreciated. Cardiology intervention noted and appreciated. The patient remains in progressive care unit on telemetry monitoring. The patient is sleeping, arousable, feels okay. Denies any chest pain or shortness of breath. PHYSICAL EXAMINATION: GENERAL: The patient is in no acute distress. VITAL SIGNS: Stable. HEART: S1, S2, normal and regular. LUNGS: Good bilateral air exchange. ABDOMEN: Soft, nontender. EXTREMITIES: No edema. No calf swelling. No tenderness. No acute ischemia. CENTRAL NERVOUS SYSTEM: Exam is essentially unchanged. DIAGNOSTIC DATA: Available diagnostic data reviewed. Telemetry monitoring does not show significant arrhythmias. ASSESSMENT AND PLAN: Overall, the patient is medically stable. Plan as ordered. Mello Cordova MD
[2018-05-20] MEDS: Enoxaparin 40 mg Syringe SC SCH (09:13)
[2018-05-20] MEDS: guaiFENesin DM 200 mg-20 mg/10 ml UD PO SCH ×4 (09:15→17:08)
[2018-05-20] MEDS: HCTZ/Losartan 12.5/50 Tab PO SCH (09:15)
[2018-05-20] MEDS: Potassium Chloride 20 mEq ER Tab PO SCH (09:15)
[2018-05-20] MEDS: Insulin Detemir 100 Units/ml Inj SC SCH (23:00)
[2018-05-21] MEDS: Insulin Regular 100 units/ml SC SCH ×4 (06:48→22:20)
--- NOTE | 2018-05-21 08:33 | PN ---
DATE: 05/21/2018 SUBJECTIVE: The patient seen and examined. Interim events noted. The patient remains in progressive care unit, on telemetry monitoring. The patient feels okay. Denies any chest pain or shortness of breath. Complains of ____. PHYSICAL EXAMINATION: GENERAL: The patient is in no acute distress. VITAL SIGNS: Stable. Physical exam is essentially unchanged. DIAGNOSTIC DATA: Available diagnostic data reviewed. Telemetry monitoring did not show significant arrhythmias. ASSESSMENT AND PLAN: Overall, the patient's general medical condition is stable. The patient is tolerating physical therapy evaluation. Plan as ordered. Mello Cordova MD
--- NOTE | 2018-05-21 08:54 | HP ---
CHIEF COMPLAINT: Chest pain HISTORY OF PRESENT ILLNESS: This is a 77-year-old female, known case of CHF, COPD, diabetes, hypertension, elevated cholesterol, bronchial asthma, arthritis and obesity, who was having episodes of chest pain, so the patient was brought to the emergency room and was admitted for further management. REVIEW OF SYSTEMS: Positive for chest pain, cough, yellow sputum, exertional shortness of breath and swelling of legs. Review of system otherwise is negative for headache, dizziness, syncope, loss of consciousness, shortness of breath at rest, abdominal pain, nausea, vomiting, diarrhea, constipation, any knee joint or extremity pain. Review of system of all other organ systems is unremarkable. PAST MEDICAL HISTORY: Significant for diabetes, hypertension, elevated cholesterol, COPD, CHF, bronchial asthma, arthritis and obesity. PAST SURGICAL HISTORY: Remarkable for gallbladder surgery. PERSONAL HISTORY: The patient is currently nonsmoker and nondrinker. No substance abuse. MEDICATIONS: The patient is on multiple medications, which includes ProAir, , Levemir, losartan, hydrochlorothiazide, Glucophage, Januvia, Zoloft, Spiriva, , Cleocin, and . ALLERGIES: THE PATIENT IS ALLERGIC TO CELEBREX, MOTRIN, AND PENICILLIN. FAMILY HISTORY: Noncontributory. PHYSICAL EXAMINATION: GENERAL: Well-built, well-nourished, overweight female, in no acute distress. VITAL SIGNS: Temperature 97.6, pulse 86, respirations 20, blood pressure 159/70, saturation 96%. HEENT: Pupils reacting to light. No JVD. No thyromegaly. No lymphadenopathy. No nystagmus. Normocephalic, atraumatic skull. HEART: S1 and S2, normal and regular. No significant murmur, gallop or rub is heard. LUNGS: Shows good bilateral air exchange. No rales. No rhonchi. ABDOMEN: Soft, nontender. No organomegaly. No fluid. Bowel sounds are plus and normal. EXTREMITIES: The patient has edema, which more looks like dependent, but no calf swelling. No tenderness. No acute ischemia. CENTRAL NERVOUS SYSTEM: Essentially unchanged and there is no sign of any acute gross focal, motor, or sensory neurological deficit. DIAGNOSTIC DATA: Available diagnostic data reviewed. WBC 8.8, hemoglobin 11.1, hematocrit 33.1, platelets 155. Sodium 135, potassium 3.3, chloride 99, bicarb 26, BUN 16, creatinine . Accu-Cheks are 421, 262 and 162. SMA-12 otherwise is unremarkable. Chest x-ray is clear. EKG shows normal sinus rhythm without any acute ST-T changes. ADMITTING IMPRESSION: Chest pain, rule out acute coronary syndrome, type 2 diabetes with , hypertension, diabetes, hypercholesteremia, congestive heart failure, coronary obstructive pulmonary disease, bronchial asthma, arthritis, and obesity. PLAN: As ordered. Case and plan discussed with the patient. Mello Cordova MD
[2018-05-21] MEDS: HCTZ/Losartan 12.5/50 Tab PO SCH (09:07)
[2018-05-21] MEDS: Potassium Chloride 20 mEq ER Tab PO SCH (09:07)
[2018-05-21] MEDS: guaiFENesin DM 200 mg-20 mg/10 ml UD PO SCH ×3 (09:08→16:22)
[2018-05-21] MEDS: Enoxaparin 40 mg Syringe SC SCH (09:08)
[2018-05-21] MEDS: Insulin Detemir 100 Units/ml Inj SC SCH (22:21)
[2018-05-22 01:46] VITALS: RESP 18
[2018-05-22] MEDS: Insulin Regular 100 units/ml SC SCH ×2 (06:52→13:20)
[2018-05-22 07:51] VITALS: BP 167/81; PULSE 81; TEMP 97.7; O2SAT 93
[2018-05-22] MEDS: Potassium Chloride 20 mEq ER Tab PO SCH (08:43)
[2018-05-22] MEDS: Enoxaparin 40 mg Syringe SC SCH (08:44)
[2018-05-22] MEDS: guaiFENesin DM 200 mg-20 mg/10 ml UD PO SCH ×2 (08:46→13:17)
--- NOTE | 2018-05-22 09:31 | CP.PCM.CON ---
History of Present Illness - History of Present Illness History of Present Illness: Psychiatry consult note CC: Chest pain HPI: 77 yo female w/ h/o DM, HTN, COPD, admitted w/ worsening COPD and chest pain. When asked if she feels depressed, patient stated "un poco." She is A + O x self and hospital, not date or president. She denies anxiety/AH/VH/SI/HI. She does not believe she needs psychiatric treatment or medications. She is unable to remember any of her current medications. PMHx: COPD, HTN, DM, Asthma ALL: Celecoxib, Ibuprofen, PCN PPHx: Denies past psychiatric history SHx: Homeless, cared for by grandson, denies drugs/etoh Impression: 77 yo female w/ likely dementia; no significant depressive or anxiety symptoms at this time. -No acute psychiatric treatment indicated at this time Past Patient History - Infectious Disease Hx of Infectious Diseases: None - Past Medical History & Family History Past Medical History?: Yes - Past Social History Alcohol: None Drugs: Denies - CARDIAC Hx Cardiac Disorders: Yes Hx Congestive Heart Failure: Yes Hx Hypercholesterolemia: Yes Hx Hypertension: Yes - PULMONARY Hx Chronic Obstructive Pulmonary Disease (COPD): Yes (asthma) - NEUROLOGICAL Hx Neurological Disorder: No - HEENT Hx HEENT Problems: Yes Hx Cataracts: Yes - RENAL Hx Chronic Kidney Disease: No - ENDOCRINE/METABOLIC Hx Diabetes Mellitus Type 2: Yes - HEMATOLOGICAL/ONCOLOGICAL Hx Human Immunodeficiency Virus (HIV): No - INTEGUMENTARY Hx Dermatological Problems: No - MUSCULOSKELETAL/RHEUMATOLOGICAL Hx Arthritis: Yes (B knees) - GASTROINTESTINAL Hx Gastrointestinal Disorders: Yes Hx Constipation: Yes Hx Gastroesophageal Reflux: Yes - GENITOURINARY/GYNECOLOGICAL Hx Genitourinary Disorders: No - PSYCHIATRIC Hx Psychophysiologic Disorder: No Hx Substance Use: No - SURGICAL HISTORY Hx Cholecystectomy: Yes - ANESTHESIA Hx Anesthesia: Yes Hx Anesthesia Reactions: No Hx Malignant Hyperthermia: No Meds Allergies/Adverse Reactions: Allergies Allergy/AdvReac Type Severity Reaction Status Date / Time celecoxib [From Celebrex] Allergy RASH Verified 05/18/18 18:07 ibuprofen [From Motrin] Allergy RASH Verified 05/18/18 18:07 Penicillins Allergy RASH Verified 05/18/18 18:07 - Medications Medications: Current Medications Albuterol/Ipratropium (Duoneb 3 Mg/0.5 Mg (3 Ml) Ud) 3 ml INH RQ6 PRN PRN Reason: Shortness of Breath Enoxaparin Sodium (Lovenox) 40 mg SC DAILY [facility]; Protocol Last Admin: 05/22/18 08:44 Dose: 40 mg Guaifenesin/Dextromethorphan (Robitussin Dm) 10 ml PO TID [facility] Last Admin: 05/22/18 08:46 Dose: 10 ml HCTZ/Losartan Potassium (Hyzaar 12.5 Mg-50 Mg) 2 tab PO DAILY [facility] Last Admin: 05/21/18 09:07 Dose: 2 tab Insulin Detemir (Levemir) 40 units SC HS [facility] Last Admin: 05/21/18 22:21 Dose: 40 u Insulin Human Regular (Humulin R) 0 units SC [facility]; Protocol Last Admin: 05/22/18 06:52 Dose: 2 units Metformin HCl (Glucophage) 1,000 mg PO BIDWM [facility] Last Admin: 05/22/18 08:41 Dose: 1,000 mg Potassium Chloride (K-Dur 20 Meq Er Tab) 20 meq PO DAILY [facility] Last Admin: 05/22/18 08:43 Dose: 20 meq Sertraline HCl (Zoloft) 25 mg PO HS [facility] Last Admin: 05/21/18 22:21 Dose: 25 mg Sitagliptin Phosphate (Januvia) 100 mg PO DAILY [facility] Last Admin: 05/22/18 08:41 Dose: 100 mg Tramadol HCl (Ultram) 50 mg PO TID PRN PRN Reason: Pain, moderate (4-7) Last Admin: 05/18/18 23:26 Dose: 50 mg Results - Vital Signs Recent Vital Signs: Last Vital Signs Temp 97.7 F 05/22/18 07:50 Pulse 81 05/22/18 07:50 Resp 18 05/22/18 07:50 BP 167/81 H 05/22/18 07:50 Pulse Ox 93 L 05/22/18 07:50 - Labs Result Diagrams: 05/20/18 05:39 05/20/18 05:39 Labs: Laboratory Results - last 24 hr 05/21/18 05/21/18 05/21/18 11:29 15:57 21:51 POC Glucose (mg/dL) 237 H 204 H 214 H 05/22/18 05:29 POC Glucose (mg/dL) 242 H
[2018-05-22] MEDS: HCTZ/Losartan 12.5/50 Tab PO SCH (10:37)
[2018-05-22 10:52] LABS: HEMOGLOBIN 12.4 g/dL (12.0-16.0); MEAN CELL VOLUME 86.4 fl (81.0-99.0); MEAN CORPUSCULAR HEMOGLOBIN 27.9 pg (27.0-31.0); MEAN CORPUSCULAR HGB CONC 32.3 g/dL (33.0-37.0); RBC 4.43 Mil/uL (3.80-5.20); RED CELL DISTRIBUTION WIDTH 13.3 % (11.5-14.5); WHITE BLOOD COUNT 8.9 K/uL (4.8-10.8)
[2018-05-22 11:09] LABS: BLOOD UREA NITROGEN 13 mg/dl (7-17); CALCIUM 9.2 mg/dL (8.4-10.2); GFR NON-AFRICAN AMERICAN > 60
== END 2018-05-22 15:23 | disposition home or self-care (01) | DRG 313 ==
LOC: H.ER 18:04 → H.ERHOLD 20:11 → H.TEL 22:28 → OBSVTOIN 05-20 14:29 → H.TEL 05-20 20:54
PROVIDERS: ADMIT Internal Medicine; ATTEND Internal Medicine
DX: R07.89 Other chest pain (principal); I11.0 Hypertensive heart disease with heart failure; I50.9 Heart failure, unspecified; K21.9 Gastro-esophageal reflux disease without esophagitis; E11.9 Type 2 diabetes mellitus without complications; F03.90 Unspecified dementia, unspecified severity, without behavioral disturbance, psychotic disturbance, mood disturbance, and anxiety; J45.909 Unspecified asthma, uncomplicated; J44.9 Chronic obstructive pulmonary disease, unspecified; M17.0 Bilateral primary osteoarthritis of knee; G89.29 Other chronic pain; E78.00 Pure hypercholesterolemia, unspecified; Z88.6 Allergy status to analgesic agent; Z88.0 Allergy status to penicillin; Z59.0 Homelessness

== ENCOUNTER 2018-06-11 11:15 | Inpatient (IN) | payer MEDICARE, MEDICAID ==
[2018-06-11 11:25] VITALS: BMI 32.0
--- NOTE | 2018-06-11 12:46 | ED PDOC ---
HPI: Chest Pain Time Seen by Provider: 06/11/18 12:02 Chief Complaint (Nursing): Chest Pain Additional Complaint(s): 77 y/o F with hx of HTN, HL, DM who presents with chest pain and body aches. Pt states that she has been having a cough with nasal congestion and chest pain after coughing that radiates to B/L shoulders and back. Has some heaviness in chest at rest. + associated palpitations but denies SOB, dizziness. The chest pain began about 6pm last night and has been intermittent since then. It recurred this morning at 10am. She has not taken her BP meds today and admits to having a mild MOSLEY for the past couple of days. No visual changes. She also states that she has depression but denies SI/HI, auditory/visual hallucinations. Past Medical History Reviewed: Historical Data, Nursing Documentation, Vital Signs Vital Signs: Last Vital Signs Temp 97.8 F 06/11/18 11:23 Pulse 83 06/11/18 11:23 Resp 20 06/11/18 11:23 BP 183/90 H 06/11/18 11:23 Pulse Ox 100 06/11/18 11:23 - Medical History PMH: Arthritis (B knees), Asthma, CHF, COPD (asthma), Diabetes, HTN, Hypercholesterolemia, Peripheral Edema, Chronic Pain (back and legs) Denies: HIV, Chronic Kidney Disease - Surgical History Surgical History: Cholecystectomy - Family History Family History: States: Unknown Family Hx - Immunization History Hx Tetanus Toxoid Vaccination: No Hx Influenza Vaccination: No Hx Pneumococcal Vaccination: No - Home Medications Home Medications: Ambulatory Orders Medication Instructions Recorded Losartan/Hydrochlorothiazide 1 tab PO DAILY 04/13/18 [Hyzaar 100-25 Tablet] Albuterol Sulfate [Proair Hfa] 2 puff IH Q4 PRN #1 inh 05/22/18 Fluticasone/Salmeterol [Advair 1 puff IH Q12 #30 blst.w.dev 05/22/18 250-50 Diskus] Insulin Detemir [Levemir] 40 unit SC HS #14 unit 05/22/18 Insulin Detemir [Levemir] 45 unit SC QAM #30 unit 05/22/18 MetFORMIN [glucoPHAGE] 1,000 mg PO BID #60 tab 05/22/18 SITagliptin [Januvia] 100 mg PO DAILY #30 tab 05/22/18 Sertraline [Zoloft] 25 mg PO DAILY #30 tab 05/22/18 Tiotropium [Spiriva] 18 mcg IH DAILY #30 cap 05/22/18 cycloSPORINE [Restasis] 1 drop OU Q12 #1 drpt 05/22/18 guaiFENesin/Dextromethorphan 10 ml PO TID #21 udc 05/22/18 [Robitussin DM] Chlorpheniramine/Dextromethorp 1 each PO Q4 PRN 5 Days tablet 06/11/18 [Coricidin Hbp Cough & Cold Tab] Fluticasone Propionate [Flonase] 1 spr NS BID PRN 5 Days spr 06/11/18 Losartan/Hydrochlorothiazide 1 each PO DAILY 7 Days tablet 06/11/18 [Losartan-Hctz 100-25 mg Tab] - Allergies Allergies/Adverse Reactions: Allergies Allergy/AdvReac Type Severity Reaction Status Date / Time celecoxib [From Celebrex] Allergy RASH Verified 06/07/18 19:23 ibuprofen [From Motrin] Allergy RASH Verified 06/07/18 19:23 Penicillins Allergy RASH Verified 06/07/18 19:23 Physical Exam - Reviewed Nursing Documentation Reviewed: Yes Vital Signs Reviewed: Yes - Physical Exam Appears: Positive for: Well Head Exam: Positive for: ATRAUMATIC Skin: Positive for: Normal Color Eye Exam: Positive for: Conjunctival injection (mild conjunctival injection B/L) ENT: Positive for: Normal ENT Inspection Cardiovascular/Chest: Positive for: Regular Rate, Rhythm Respiratory: Positive for: Normal Breath Sounds Gastrointestinal/Abdominal: Positive for: Normal Exam Extremity: Positive for: Pedal Edema (1+ pedal edema B/L) Lymphatic: Positive for: Normal Exam Neurologic/Psych: Positive for: Alert, Oriented - Laboratory Results Result Diagrams: 06/11/18 13:40 06/11/18 13:40 - ECG O2 Sat by Pulse Oximetry: 100 Medical Decision Making Medical Decision Making: EKG: sinus rhythm HR 80s, non-specific T wave abnormality diffusely. CBC, CMP, troponin Flonase Tylenol 650mg Losartan HCTZ Robitussin Glucose 504, given Regular insulin 8units SQ and 1L NS boluse, made NPO. 16:30: Re-evaluated: BP improved to 140s/70s, Fingerstick 400s, will give additional Regular insulin 8units SQ x 1, check CXR and 500mL NS bolus. CXR unremarkable. Troponin negative 17:30: re-evaluated, FS improved, BP 140s/70s. 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 Cervantes. Pt is medically cleared for psychiatric admission. Disposition - Clinical Impression Clinical Impression: Pleuritic chest pain, Hyperglycemia, Upper respiratory infection - Patient ED Disposition Is Patient to be Admitted: Yes Discussed With : Leonides Cervantes Doctor Will See Patient In The: Hospital Counseled Patient/Family Regarding: Studies Performed, Diagnosis - Disposition Disposition: Transfer of Care Disposition Time: 19:38 Condition: STABLE
[2018-06-11] MEDS ORDERED: HCTZ/Losartan 12.5/50 Tab PO SCH (13:15)
--- NOTE | 2018-06-11 13:39 | CARD ---
APPROVED REPORT Date of service: 06/11/2018 EKG Measurement Heart [id number] OR [id number] <Conclusion> Normal sinus rhythm Nonspecific T wave abnormality Abnormal ECG
[2018-06-11 13:49] LABS: BASO % 0.7 % (0.0-2.0); EOS # 0.1 K/uL (0.0-0.7); EOS % 1.5 % (0.0-4.0); HEMOGLOBIN 12.1 g/dL (12.0-16.0); LYMPH # 1.9 K/uL (1.0-4.3); LYMPH % 29.3 % (20.0-40.0); MEAN CELL VOLUME 84.7 fl (81.0-99.0); MEAN CORPUSCULAR HEMOGLOBIN 27.9 pg (27.0-31.0); MEAN CORPUSCULAR HGB CONC 32.9 g/dL (33.0-37.0); MEAN PLATELET VOLUME 9.6 fl (7.2-11.7); MONO # 0.5 K/uL (0.0-0.8); MONO % 7.5 % (0.0-10.0); RBC 4.33 Mil/uL (3.80-5.20); RED CELL DISTRIBUTION WIDTH 13.5 % (11.5-14.5); WHITE BLOOD COUNT 6.5 K/uL (4.8-10.8)
[2018-06-11 14:04] LABS: ALBUMIN 3.4 g/dL (3.5-5.0); ALT/SGPT 25 U/L (9-52); AST/SGOT 23 U/L (14-36); BLOOD UREA NITROGEN 19 mg/dl (7-17); GFR NON-AFRICAN AMERICAN > 60
[2018-06-11] MEDS ORDERED: Insulin Regular 100 units/ml SC STA ×2 (14:10→16:40)
[2018-06-11] MEDS ORDERED: Insulin Regular 100 units/ml ONE ×2 (14:17→16:47)
[2018-06-11] MEDS: Sodium Chloride 0.9% 1,000 ML IV SCH ×2 (14:20→16:34)
[2018-06-11] MEDS ORDERED: Dextrose 50% SYRINGE Inj (50 ml) IV PRN (16:40)
[2018-06-11] MEDS ORDERED: Glucagon Recombinant 1 mg Inj IM PRN (16:40)
[2018-06-11] MEDS ORDERED: Sodium Chloride 0.9% 500 ML IV ONE (16:42)
--- NOTE | 2018-06-11 18:25 | RAD ---
Date of service: 06/11/2018 HISTORY: shortness of breath, cough COMPARISON: 05/18/2018 TECHNIQUE: Chest PA and lateral FINDINGS: LUNGS: Mild hypoventilatory changes without focal alveolar infiltrate. PLEURA: No significant pleural effusion identified. No pneumothorax apparent. CARDIOVASCULAR: Mild atherosclerotic changes of the aorta Unchanged. No pulmonary vascular congestion. OSSEOUS STRUCTURES: No significant abnormalities. VISUALIZED UPPER ABDOMEN: Normal. OTHER FINDINGS: None. IMPRESSION: No appreciable new focal infiltrate or CHF overlying soft tissue.
[2018-06-11 20:57] LABS: SQUAMOUS EPITHIAL 2 /hpf (0-5); URINE BACTERIA RARE (<OCC); URINE BILIRUBIN NEGATIVE (NEGATIVE); URINE BLOOD SMALL (NEGATIVE); URINE CLARITY CLEAR (Clear); URINE COLOR STRAW (YELLOW); URINE GLUCOSE (UA) >=500 mg/dL (NEGATIVE); URINE LEUKOCYTE ESTERASE TRACE Leu/uL (Negative); URINE PROTEIN 30 mg/dL (NEGATIVE); URINE UROBILINOGEN 0.2-1.0 mg/dL (0.2-1.0)
[2018-06-11 21:09] LABS: OPIATES, UR NEGATIVE (NEGATIVE)
[2018-06-11 21:11] LABS: BARBITURATES, UR NEGATIVE (NEGATIVE); BENZODIAZEPINES, UR NEGATIVE (NEGATIVE); PHENCYCLIDINE, UR NEGATIVE (NEGATIVE)
[2018-06-11] MEDS ORDERED: Alum-Mag Hydrox-Simethicone Susp (30 mL) PO PRN (22:27)
[2018-06-11] MEDS ORDERED: Magnesium Hydroxide Susp 30 ml UD PO PRN (22:27)
--- NOTE | 2018-06-11 22:47 | PCM.BM ---
<EberArchie - Last Filed: 06/11/18 22:46> Treatment Plan Problems - Problems identified on initial assessmt Hopelessness/Helplessness Date Initiated: 06/11/18 Time Initiated: 22:46 Assessment reference: NA Status: Active Altered Sleep Patterns Date Initiated: 06/11/18 Time Initiated: 22:46 Assessment reference: NA Status: Active Medication nonadherence Date Initiated: 06/11/18 Time Initiated: 22:47 Assessment reference: NA Status: Active Treatment assets and liabiliti Patient Assests: adapts well, cooperative, self-reliant, ADL independent, negotiates basic needs Patient Liabilities: live alone, financial problems, medical problems - Milieu Protocol Maintain good personal hygiene: every shift Encourage regular showers, every shift Remind patient to perform daily oral care, every shift Assist patient to perform ADL's Maintain personal safety: daily Educate patient to report safety concerns to staff, daily Monitor environment for contraband/sharps Medication safety: Monitor for expected outcome, potential side effects: daily, Assess barriers to learning: daily, Assess readiness for medication education: daily <Nesha Perez - Last Filed: 06/12/18 10:02> - Diagnosis (1) Depressive disorder Status: Acute Interventions: Medication management, Individual and group therapy, Psychoeducation 06/12/18 10:02 <Ida Montague - Last Filed: 06/13/18 15:01> Family Contact Family involvement: Family/SO is involved Family contact: Patient agrees to contact, Family has been contacted by patient, Telephone contact initiated by staff Family contact name: Julian Merritt- grandson Family contacted how many times per week?: 1 Family contact comment: Please refer to SW progress Note dated 06/13/2018 - Goals for Treatment Patient goals for treatment: Pt will improve overall mood. Pt will develop strategies for thought distraction ruminating on the past. Pt will be medication compliant. Pt will take medicationsas prescribed on a daily basis. Pt will report any medications concerns to the doctor as soon as possible. Discharge/Continuing Care - Education Needs Education Needs: Family Medication, Family Diagnosis/Disease Process, Family Placement options, Family Community resources, Family Uses of Medical Equipment, Family Health Practices/Safety, Family Personal Hygiene/Grooming, Family Aftercare Safety Plan, Patient Medication, Patient Diagnosis/Disease Process, Patient Placement options, Patient Community resources, Patient Uses of Medical Equipment, Patient Health Practices/Safety, Patient Personal Hygiene/Grooming, Patient Aftercare Safety Plan - Discharge Discharge Criteria: Tolerates medication w/o severe side effects, Normal sleep pattern, Ability to care for self, Reduction of target symptoms Discharge to:: Other (NH placement discussed with pt and pt is hesistant at this time. Pt agreed to meet with SW and grandson to discuss NH placement and referral.) - Additional Comments 06/13/18 14:51 Pt seen and discussed in team meeting. Reason for admission reviewed and discussed. Pt reported she was referred to the ED due high blood sugar. Pt reported that she ran out of medication for one week because her PMD, Dr. Meli Bloom MD went on vacation. Pt reported feeling depressed and sad "sometimes." Pt reported that her son 5 months ago due to diabetes. Pt reported that since son she was evicted form her apartment due to rent non-payment. Pt reported that she is currently staying at a senior care in [place], [place]. Pt reported that her wish is to rent a room and be able to live with her grandson again. Pt reported that she rather than be from her grandson. Pt reported that she raised her grandson and cannot be from him. Pt reported that she has applied for housing but "nothing." Pt reported that her memory is "sometimes i can remember and sometimes i cannot." Pt's medical and social issues reviewed. Pt verbalized understanding of what could happen if she does not comply with medications. Pt reported that she is aware that if she stop taking her diabetes medication that she can . Pt's medications reviewed and discussed. Tx plan reviewed and discussed. Pt is agreeable to meet with SW and grandson tomorrow, 06/14 to review and discuss assisted placement. Pt is hesitant at this time because she does not wish to leave her grandson alone. SW will continue to follow case. - Treatment Team Participation Discussed with Family/SO: No Was Patient/Family/SO present at Treatment Team Meeting: Yes
[2018-06-12 06:48] LABS: T4 5.87 ug/dl (5.5-11.0)
[2018-06-12 07:12] LABS: IRON 52 ug/dL (37-170)
[2018-06-12] MEDS ORDERED: Albuterol HFA 90 mcg/actuation (8 g) IH PRN (07:12)
[2018-06-12 07:20] LABS: % IRON SATURATION 21 % (20-55); TOTAL IRON BINDING CAPACITY 247 ug/dL (250-450)
--- NOTE | 2018-06-12 08:57 | PCM.PSYCH ---
Initial Psychiatric Evaluation - Initial Psychiatric Evaluation Type of Admission: Voluntary Legal Status: Capacity Chief Complaint (in patient's own words): Depression Patient's Reaction to Hospitalization: HPI: 77 yo female w/ h/o DM, HTN, COPD, presented w/ chest pain and complaints of worsening depression, sleep disturbances and decreased ability to care for self. She denies anxiety/AH/VH/SI/HI. She is unable to remember any of her c urrent medications. A + O x self and hospital. PMHx: COPD, HTN, DM, Asthma ALL: Celecoxib, Ibuprofen, PCN PPHx: Denies past psychiatric history SHx: Homeless, cared for by grandson, denies drugs/etoh Current Medications: Active Medications Generic Name Dose Route Start Last Admin Trade Name Freq PRN Reason Stop Dose Admin Acetaminophen 650 mg 06/11/18 22:27 Tylenol 325mg Tab PO Q4 PRN Pain, moderate (4-7) Al Hydrox/Mg Hydrox/Simethicone 30 ml 06/11/18 22:27 Maalox Plus 30 Ml PO Q4 PRN Dyspepsia Albuterol 2 puff 06/12/18 07:12 Ventolin Hfa 90 Mcg/Actuation (8 G) IH Q4 PRN Shortness of Breath Guaifenesin/Dextromethorphan 10 ml 06/12/18 09:00 Robitussin Dm PO TID [facility] Home Med 1 drop 06/12/18 09:00 Cyclosporine [Restasis] OU Q12 [facility] Hydrochlorothiazide 25 mg 06/12/18 09:00 Hydrodiuril PO DAILY [facility] Insulin Detemir 40 units 06/12/18 22:00 Levemir SC HS [facility] Insulin Human Regular 0 units 06/12/18 07:30 Humulin R SC ACHS [facility] Protocol Lorazepam 0.5 mg 06/11/18 22:27 Ativan PO 06/25/18 22:28 HS PRN Insomnia Lorazepam 0.5 mg 06/11/18 22:27 Ativan PO 06/25/18 22:28 Q6 PRN Anixety/Agitation Losartan Potassium 100 mg 06/12/18 09:00 Cozaar PO DAILY [facility] Magnesium Hydroxide 30 ml 06/11/18 22:27 Milk Of Magnesia PO HS PRN Constipation Metformin HCl 1,000 mg 06/12/18 09:00 Glucophage PO BID [facility] Fluticasone/Salmeterol 1 puff 06/12/18 09:00 Advair Diskus 250/50 IH Q12 [facility] Sitagliptin Phosphate 100 mg 06/12/18 09:00 Januvia PO DAILY [facility] Tiotropium Sarita 18 mcg 06/12/18 09:00 Spiriva IH DAILY [facility] Past Psychiatric History - Past Psychiatric History Pertinent Medical Hx (Current Medical&Sleep Prob, Allergies): Allergies Allergy/AdvReac Type Severity Reaction Status Date / Time celecoxib [From Celebrex] Allergy RASH Verified 06/07/18 19:23 ibuprofen [From Motrin] Allergy RASH Verified 06/07/18 19:23 Penicillins Allergy RASH Verified 06/07/18 19:23 Losartan/Hydrochlorothiazide [Hyzaar 100-25 Tablet] 1 tab PO DAILY 04/13/18 Albuterol Sulfate [Proair Hfa] 2 puff IH Q4 PRN #1 inh 05/22/18 Fluticasone/Salmeterol [Advair 250-50 Diskus] 1 puff IH Q12 #30 blst.w.dev Insulin Detemir [Levemir] 40 unit SC HS #14 unit 05/22/18 Insulin Detemir [Levemir] 45 unit SC QAM #30 unit 05/22/18 MetFORMIN [glucoPHAGE] 1,000 mg PO BID #60 tab 05/22/18 SITagliptin [Januvia] 100 mg PO DAILY #30 tab 05/22/18 Sertraline [Zoloft] 25 mg PO DAILY #30 tab 05/22/18 Tiotropium [Spiriva] 18 mcg IH DAILY #30 cap 05/22/18 cycloSPORINE [Restasis] 1 drop OU Q12 #1 drpt 05/22/18 guaiFENesin/Dextromethorphan [Robitussin DM] 10 ml PO TID #21 udc 05/22/18 Chlorpheniramine/Dextromethorp [Coricidin Hbp Cough & Cold Tab] 1 each PO Q4 PRN 5 Days tablet 06/11/18 Fluticasone Propionate [Flonase] 1 spr NS BID PRN 5 Days spr 06/11/18 Losartan/Hydrochlorothiazide [Losartan-Hctz 100-25 mg Tab] 1 each PO DAILY 7 Days tablet 06/11/18 Review of Systems - Psychiatric Psychiatric: Abnormal Sleep Pattern, Change in Appetite, Depression, Difficulty Concentrating, Memory Loss Mental Status Examination - Personal Presentation Personal Presentation: Looks stated age - Affect Affect: Constricted, Depressed - Motor Activity Motor Activity: Calm - Reliability in Providing Information Reliability in Providing Information: Poor, due to cognitve impairment - Speech Speech: Coherent - Mood Mood: Depressed - Formal Thought Process Formal Thought Process: Loosening of associations - Hallucinations/Delusions Additional comments: NO AH/VH/paranoia/delusions - Obsessions/Compulsions Obsessions: No Compulsions: No - Cognitive Functions Orientation: Person, Place Sensorium: Alert Judgement: Intact, as evidence by: Insight regarding need for hospitalization Memory: Recent imparied as evidence by:Inability to complete 3/3 object recall, Remote impaired as evidenced by: Inability to recall sig life events, Remote impaired as evidenced by: Inability to recall historical events - Risk Risk: Diminished functioning - Strength & Assets Inventory Strength & Assets Inventory: Cooperative - Limitations Limitations: Decreased memory, recent DSM 5 DX - DSM 5 DSM 5 Diagnosis: Depressive Disorder; r/o Dementia - Recommended/Plan of Treatment Treatment Recommendations and Plan of Treatment: Depressive Disorder; r/o Dementia -Admit to psychiatry unit -Start Remeron 7.5 mg PO HS -Individual and group therapy -Psychoeducation -Obtain collateral history -Disposition planning Projected ELOS: 5-10 days Discharge Plan and Discharge Criteria: Discharge when patient is psychiatrically stable - Smoking Cessation Smoking Cessation Initiated: No Reason for not providing: Not indicated
[2018-06-12] MEDS ORDERED: Patient's Own Med (Losartan/Hydrochlorothiazide [Hyzaar 100-25 Tablet] 1 TAB) PO SCH (09:00)
[2018-06-12] MEDS ORDERED: Patient's Own Med (Cyclosporine [Restasis] 1 DROP) OU SCH (09:00)
--- NOTE | 2018-06-12 10:18 | CP.PCM.CON ---
<Patricia Prince - Last Filed: 06/12/18 18:26> History of Present Illness - History of Present Illness History of Present Illness: Medicine consult note for Dr. Cordova 77 yo homeless female with hypertension, COPD, diabetes mellitus type 2, admitted to geropsych unit due to depression and decreased ability to care for herself. She had not been taking her medications and was hypertensive and had blood sugar 503 in the ED. After being treated for htn and hyperglycemia, she was admitted to psych. Seen today in psych unit; laying in bed. Reports that she feels better than when she came to ED. Denies chest pain or trouble breathing at this time. No specific complaints offered aside from dry skin. 12 point ROS neg. Med hx: DM2, HTN Surg hx: hysterectomy, cholecystectomy Fam hx: noncontributory Social hx: denies tobacco, alcohol, drug use Allergies: pt states "none" but EMR has celecoxib, ibuprofen, penicillins Meds: pt unable to recall; will check medrec. Past Patient History - Infectious Disease Hx of Infectious Diseases: None - Past Medical History & Family History Past Medical History?: Yes - Past Social History Smoking Status: Never Smoked - CARDIAC Hx Congestive Heart Failure: Yes Hx Hypercholesterolemia: Yes Hx Hypertension: Yes Hx Peripheral Edema: Yes - PULMONARY Hx Asthma: Yes Hx Chronic Obstructive Pulmonary Disease (COPD): Yes (asthma) - NEUROLOGICAL HX Cerebrovascular Accident: No Hx Seizures: No - HEENT Hx HEENT Problems: Yes Hx Cataracts: Yes - RENAL Hx Chronic Kidney Disease: No - ENDOCRINE/METABOLIC Hx Diabetes Mellitus Type 2: Yes - HEMATOLOGICAL/ONCOLOGICAL Hx Human Immunodeficiency Virus (HIV): No - INTEGUMENTARY Hx Dermatological Problems: No - MUSCULOSKELETAL/RHEUMATOLOGICAL Hx Arthritis: Yes (B knees) Hx Falls: Yes - GASTROINTESTINAL Hx Gastrointestinal Disorders: Yes Hx Constipation: Yes Hx Gastroesophageal Reflux: Yes - GENITOURINARY/GYNECOLOGICAL Hx Sexually Transmitted Disorders: No - PSYCHIATRIC Hx Anxiety: Yes Hx Depression: Yes Hx Substance Use: No - SURGICAL HISTORY Hx Cholecystectomy: Yes Hx Hysterectomy: Yes - ANESTHESIA Hx Anesthesia: Yes Hx Anesthesia Reactions: No Hx Malignant Hyperthermia: No Meds Home Medications: Home Medication List Medication Instructions Recorded Confirmed Type Chlorpheniramine/Dextromethorp 1 each PO Q4 PRN 5 Days tablet 06/11/18 Rx [Coricidin Hbp Cough & Cold Tab] Fluticasone Propionate [Flonase] 1 spr NS BID PRN 5 Days spr 06/11/18 Rx Losartan/Hydrochlorothiazide 1 each PO DAILY 7 Days tablet 06/11/18 Rx [Losartan-Hctz 100-25 mg Tab] Allergies/Adverse Reactions: Allergies Allergy/AdvReac Type Severity Reaction Status Date / Time celecoxib [From Celebrex] Allergy RASH Verified 06/07/18 19:23 ibuprofen [From Motrin] Allergy RASH Verified 06/07/18 19:23 Penicillins Allergy RASH Verified 06/07/18 19:23 - Medications Medications: Current Medications Acetaminophen (Tylenol 325mg Tab) 650 mg PO Q4 PRN PRN Reason: Pain, moderate (4-7) Al Hydrox/Mg Hydrox/Simethicone (Maalox Plus 30 Ml) 30 ml PO Q4 PRN PRN Reason: Dyspepsia Albuterol (Ventolin Hfa 90 Mcg/Actuation (8 G)) 2 puff IH Q4 PRN PRN Reason: Shortness of Breath Guaifenesin/Dextromethorphan (Robitussin Dm) 10 ml PO TID [facility] Home Med (Cyclosporine [Restasis]) 1 drop OU Q12 MANISHA Hydrochlorothiazide (Hydrodiuril) 25 mg PO DAILY [facility] Insulin Detemir (Levemir) 40 units SC HS [facility] Insulin Human Regular (Humulin R) 0 units SC ACHS [facility]; Protocol Lorazepam (Ativan) 0.5 mg PO HS PRN PRN Reason: Insomnia Stop: 06/25/18 22:28 Lorazepam (Ativan) 0.5 mg PO Q6 PRN PRN Reason: Anixety/Agitation Stop: 06/25/18 22:28 Losartan Potassium (Cozaar) 100 mg PO DAILY [facility] Magnesium Hydroxide (Milk Of Magnesia) 30 ml PO HS PRN PRN Reason: Constipation Metformin HCl (Glucophage) 1,000 mg PO BID [facility] Mirtazapine (Remeron) 7.5 mg PO HS [facility] Fluticasone/Salmeterol (Advair Diskus 250/50) 1 puff IH Q12 [facility] Sitagliptin Phosphate (Januvia) 100 mg PO DAILY [facility] Tiotropium [place] (Spiriva) 18 mcg IH DAILY MANISHA Physical Exam - Constitutional Appears: Non-toxic Additional comments: somewhat unkempt - Head Exam Head Exam: NORMAL INSPECTION - Eye Exam Eye Exam: Normal appearance - ENT Exam ENT Exam: Mucous Membranes Moist - Respiratory Exam Respiratory Exam: Clear to Auscultation Bilateral, NORMAL BREATHING PATTERN. absent: Wheezes - Cardiovascular Exam Cardiovascular Exam: REGULAR RHYTHM, +S1, +S2 - GI/Abdominal Exam GI & Abdominal Exam: Normal Bowel Sounds, Soft. absent: Tenderness - Extremities Exam Extremities exam: Negative for: calf tenderness Additional comments: dry skin - Neurological Exam Neurological exam: Alert - Skin Skin Exam: Warm Results - Vital Signs Recent Vital Signs: Last Vital Signs Temp 98.1 F 06/12/18 06:00 Pulse 81 06/12/18 06:00 Resp 18 06/12/18 06:00 BP 175/77 H 06/12/18 06:00 Pulse Ox 95 06/11/18 22:15 - Labs Result Diagrams: 06/11/18 13:40 06/11/18 13:40 Labs: Laboratory Results - last 24 hr 06/11/18 06/11/18 06/11/18 11:35 13:40 13:40 WBC 6.5 RBC 4.33 Hgb 12.1 Hct 36.7 MCV 84.7 MCH 27.9 MCHC 32.9 L RDW 13.5 Plt Count 115 L D MPV 9.6 Neut % (Auto) 61.0 Lymph % (Auto) 29.3 Webb % (Auto) 7.5 Eos % (Auto) 1.5 Baso % (Auto) 0.7 Neut # (Auto) 4.0 Lymph # (Auto) 1.9 Webb # (Auto) 0.5 Eos # (Auto) 0.1 Baso # (Auto) 0.0 Sodium 134 Potassium 3.8 Chloride 99 Carbon Dioxide 25 Anion Gap 14 BUN 19 H Creatinine 0.7 Est GFR ( Amer) > 60 Est GFR (Non-Af Amer) > 60 POC Glucose (mg/dL) 491 H* Random Glucose 503 H* D Calcium 9.0 Iron TIBC % Saturation Ferritin Total Bilirubin 0.4 AST 23 ALT 25 Alkaline Phosphatase 102 Troponin I < 0.0120 Total Protein 6.9 Albumin 3.4 L Globulin 3.5 Albumin/Globulin Ratio 1.0 Triglycerides Cholesterol LDL Cholesterol Direct HDL Cholesterol Vitamin B12 Free T4 Thyroxine (T4) TSH 3rd Generation Urine Color Urine Clarity Urine pH Ur Specific [place] Urine Protein Urine Glucose (UA) Urine Ketones Urine Blood Urine Nitrate Urine Bilirubin Urine Urobilinogen Ur Leukocyte Esterase Urine RBC (Auto) Urine Microscopic WBC Ur Squamous Epith Cells Urine Bacteria Urine Opiates Screen Urine Methadone Screen Ur Barbiturates Screen Ur Phencyclidine Scrn Ur Amphetamines Screen U Benzodiazepines Scrn U Oth Cocaine Metabols U Cannabinoids Screen 06/11/18 06/11/18 06/11/18 15:50 18:05 20:43 WBC RBC Hgb Hct MCV MCH MCHC RDW Plt Count MPV Neut % (Auto) Lymph % (Auto) Webb % (Auto) Eos % (Auto) Baso % (Auto) Neut # (Auto) Lymph # (Auto) Webb # (Auto) Eos # (Auto) Baso # (Auto) Sodium Potassium Chloride Carbon Dioxide Anion Gap BUN Creatinine Est GFR ( Amer) Est GFR (Non-Af Amer) POC Glucose (mg/dL) 406 H* 266 H Random Glucose Calcium Iron TIBC % Saturation Ferritin Total Bilirubin AST ALT Alkaline Phosphatase Troponin I Total Protein Albumin Globulin Albumin/Globulin Ratio Triglycerides Cholesterol LDL Cholesterol Direct HDL Cholesterol Vitamin B12 Free T4 Thyroxine (T4) TSH 3rd Generation Urine Color Urine Clarity Urine pH Ur Specific [place] Urine Protein Urine Glucose (UA) Urine Ketones Urine Blood Urine Nitrate Urine Bilirubin Urine Urobilinogen Ur Leukocyte Esterase Urine RBC (Auto) Urine Microscopic WBC Ur Squamous Epith Cells Urine Bacteria Urine Opiates Screen Negative Urine Methadone Screen Negative Ur Barbiturates Screen Negative Ur Phencyclidine Scrn Negative Ur Amphetamines Screen Negative U Benzodiazepines Scrn Negative U Oth Cocaine Metabols Negative U Cannabinoids Screen Negative 06/11/18 06/11/18 06/12/18 20:43 21:27 05:45 WBC RBC Hgb Hct MCV MCH MCHC RDW Plt Count MPV Neut % (Auto) Lymph % (Auto) Webb % (Auto) Eos % (Auto) Baso % (Auto) Neut # (Auto) Lymph # (Auto) Webb # (Auto) Eos # (Auto) Baso # (Auto) Sodium Potassium Chloride Carbon Dioxide Anion Gap BUN Creatinine Est GFR ( Amer) Est GFR (Non-Af Amer) POC Glucose (mg/dL) 80 Random Glucose Calcium Iron TIBC % Saturation Ferritin 172.0 Total Bilirubin AST ALT Alkaline Phosphatase Troponin I Total Protein Albumin Globulin Albumin/Globulin Ratio Triglycerides 199 H D Cholesterol 202 H LDL Cholesterol Direct 128 HDL Cholesterol 48 Vitamin B12 728 Free T4 Thyroxine (T4) 5.87 TSH 3rd Generation 2.20 Urine Color Straw Urine Clarity Clear Urine pH 6.0 Ur Specific [place] 1.027 Urine Protein 30 Urine Glucose (UA) >=500 Urine Ketones Negative Urine Blood Small Urine Nitrate Negative Urine Bilirubin Negative Urine Urobilinogen 0.2-1.0 Ur Leukocyte Esterase Trace Urine RBC (Auto) 4 H Urine Microscopic WBC 1 Ur Squamous Epith Cells 2 Urine Bacteria Rare Urine Opiates Screen Urine Methadone Screen Ur Barbiturates Screen Ur Phencyclidine Scrn Ur Amphetamines Screen U Benzodiazepines Scrn U Oth Cocaine Metabols U Cannabinoids Screen 06/12/18 06/12/18 05:45 05:45 WBC RBC Hgb Hct MCV MCH MCHC RDW Plt Count MPV Neut % (Auto) Lymph % (Auto) Webb % (Auto) Eos % (Auto) Baso % (Auto) Neut # (Auto) Lymph # (Auto) Webb # (Auto) Eos # (Auto) Baso # (Auto) Sodium Potassium Chloride Carbon Dioxide Anion Gap BUN Creatinine Est GFR ( Amer) Est GFR (Non-Af Amer) POC Glucose (mg/dL) Random Glucose Calcium Iron 52 TIBC 247 L % Saturation 21 Ferritin Total Bilirubin AST ALT Alkaline Phosphatase Troponin I Total Protein Albumin Globulin Albumin/Globulin Ratio Triglycerides Cholesterol LDL Cholesterol Direct HDL Cholesterol Vitamin B12 Free T4 1.14 Thyroxine (T4) TSH 3rd Generation Urine Color Urine Clarity Urine pH Ur Specific [place] Urine Protein Urine Glucose (UA) Urine Ketones Urine Blood Urine Nitrate Urine Bilirubin Urine Urobilinogen Ur Leukocyte Esterase Urine RBC (Auto) Urine Microscopic WBC Ur Squamous Epith Cells Urine Bacteria Urine Opiates Screen Urine Methadone Screen Ur Barbiturates Screen Ur Phencyclidine Scrn Ur Amphetamines Screen U Benzodiazepines Scrn U Oth Cocaine Metabols U Cannabinoids Screen Assessment & Plan - Assessment and Plan (Free Text) Assessment: 77 yo homeless F with HTN and DM2, admitted to [facility] due to depression and inability to care for self. Non-complaince with medication outside of facility. Plan: - Primary psychiatric plan as per psych team - Resume antihypertensive medication [id number] - Resume COPD meds: fluticasone/salmeterol, albuterol, spiriva - Resume metformin 1000 mg BID, insulin 40U levemir at bedtime, januvia 100 mg - Heart healthy diet - Insulin sliding scale, acchuchecks ACHS - Encourage ambulation <Cordova,Mello K - Last Filed: 06/13/18 10:35> Meds - Medications Medications: Current Medications Acetaminophen (Tylenol 325mg Tab) 650 mg PO Q4 PRN PRN Reason: Pain, moderate (4-7) Al Hydrox/Mg Hydrox/Simethicone (Maalox Plus 30 Ml) 30 ml PO Q4 PRN PRN Reason: Dyspepsia Albuterol (Ventolin Hfa 90 Mcg/Actuation (8 G)) 2 puff IH Q4 PRN PRN Reason: Shortness of Breath Guaifenesin/Dextromethorphan (Robitussin Dm) 10 ml PO TID [facility] Last Admin: 06/13/18 08:09 Dose: 10 ml Home Med (Cyclosporine [Restasis]) 1 drop OU Q12 [facility] Hydrochlorothiazide (Hydrodiuril) 25 mg PO DAILY [facility] Last Admin: 06/13/18 09:39 Dose: 25 mg Insulin Detemir (Levemir) 40 units SC HS [facility] Last Admin: 06/12/18 21:18 Dose: 40 units Insulin Human Regular (Humulin R) 0 units SC [facility]; Protocol Last Admin: 06/12/18 21:17 Dose: Not Given Lorazepam (Ativan) 0.5 mg PO HS PRN PRN Reason: Insomnia Stop: 06/25/18 22:28 Lorazepam (Ativan) 0.5 mg PO Q6 PRN PRN Reason: Anixety/Agitation Stop: 06/25/18 22:28 Losartan Potassium (Cozaar) 100 mg PO DAILY [facility] Last Admin: 06/13/18 08:06 Dose: 100 mg Magnesium Hydroxide (Milk Of Magnesia) 30 ml PO HS PRN PRN Reason: Constipation Metformin HCl (Glucophage) 1,000 mg PO BID [facility] Last Admin: 06/13/18 08:05 Dose: 1,000 mg Mirtazapine (Remeron) 7.5 mg PO HS [facility] Last Admin: 06/12/18 21:16 Dose: 7.5 mg Fluticasone/Salmeterol (Advair Diskus 250/50) 1 puff IH Q12 [facility] Last Admin: 06/13/18 08:05 Dose: 1 puff Sitagliptin Phosphate (Januvia) 100 mg PO DAILY [facility] Last Admin: 06/13/18 08:05 Dose: 100 mg Tiotropium [place] (Spiriva) 18 mcg IH DAILY MANISHA Last Admin: 06/13/18 08:07 Dose: 18 mcg Results - Vital Signs Recent Vital Signs: Last Vital Signs Temp 97.2 F L 06/13/18 05:55 Pulse 82 06/13/18 08:06 Resp 18 06/13/18 05:55 BP 152/79 H 06/13/18 08:06 Pulse Ox 100 06/13/18 01:05 - Labs Result Diagrams: 06/11/18 13:40 06/11/18 13:40 Labs: Laboratory Results - last 24 hr 06/12/18 06/12/18 06/12/18 05:45 05:45 05:45 POC Glucose (mg/dL) Hemoglobin A1c 14.6 H Folate 13.4 RPR Nonreactive 06/12/18 06/12/18 06/12/18 05:56 16:15 19:59 POC Glucose (mg/dL) 224 H 352 H 256 H Hemoglobin A1c Folate RPR 06/13/18 05:39 POC Glucose (mg/dL) 158 H Hemoglobin A1c Folate RPR Assessment & Plan - Assessment and Plan (Free Text) Assessment: Patient was personally seen and examined by me in rounds with residents. Available labs and diagnostic data reviewed. Case, Patient's condition and management plan discussed with residents in rounds. Agree with resident's progress note. Plan: As ordered.
[2018-06-12 13:42] LABS: FOLATE 13.4 ng/mL
[2018-06-12] MEDS: Fluticasone-Salmeterol 250-50mcg Diskus IH SCH ×2 (14:42→21:17)
[2018-06-12] MEDS: guaiFENesin DM 200 mg-20 mg/10 ml UD PO SCH ×3 (14:48→16:26)
[2018-06-12] MEDS: Tiotropium 18 mcg Cap For Inhalation IH SCH (14:48)
[2018-06-12] MEDS: Insulin Regular 100 units/ml SC SCH ×3 (14:49→21:17)
[2018-06-12] MEDS: Insulin Detemir 100 Units/ml Inj SC SCH (21:18)
[2018-06-13 01:05] VITALS: O2SAT 100
[2018-06-13] MEDS: Fluticasone-Salmeterol 250-50mcg Diskus IH SCH ×2 (08:05→21:11)
[2018-06-13] MEDS: Tiotropium 18 mcg Cap For Inhalation IH SCH (08:07)
[2018-06-13] MEDS: guaiFENesin DM 200 mg-20 mg/10 ml UD PO SCH ×3 (08:09→16:35)
--- NOTE | 2018-06-13 09:43 | PCM.PYCHPN ---
Psychiatric Progress Note - Psychiatric Progress Note Patient seen today, length of contact: Pt evaluated, case discussed w/ team, chart reviewed Patient Chief Complaint: Depression Problems Identified/Issues Discussed: Patient continues to report feeling depressed. Mini Mental State Exam: 05/25; unable to state date/day/month/year, 0/3 word recall; unable to subtract serial 7s, unable to write sentence, unable to copy hexagon shapes. Patient is also unable to draw a clock properly. Patient was unable to sufficiently explain her medical conditions and was only able to state that she takes insulin (did not know her other medications). Patient has not been able to care for herself properly. Medication Change: No Medical Record Reviewed: Yes Consults ordered or reviewed: Medicine consult Mental Status Examination - Cognitive Function Orientation: Person, Place Memory: Impaired Attention: Poor Concentration: Poor Association: Loose Fund of Knowledge: Poor Decription of patient's judgement and insights: Poor I/J - Mood Mood: Depressed - Affect Affect: Constricted, Depressed - Formal Thought Process Formal Thought Process: Loosening of associations Psychotic Thoughts and Behaviors: No AH/VH/paranoia/delusions - Suicidal Ideation Suicidal Ideation: No - Homicidal Ideation Homicidal Ideation: No Goal/Treatment Plan - Goal/Treatment Plan Need for Continued Stay: Severe depression anxiety, Severe functional impairment Progress Toward Problem(s) and Goals/Treatment Plan: Depressive Disorder; Dementia -Continue Remeron 7.5 mg PO HS -Individual and group therapy -Psychoeducation -SW arranged family meeting w/ patient's grandson -Disposition planning
[2018-06-13] MEDS: Insulin Regular 100 units/ml SC SCH ×4 (12:39→21:13)
[2018-06-13] MEDS ORDERED: Influenza Vaccine (5 YR UP)/PF 60 MCG/0.5 ML SYR IM ONE (18:09)
[2018-06-13] MEDS ORDERED: Pneumococcal 23-Valent Vaccine IM ONE (18:10)
[2018-06-13] MEDS: Insulin Detemir 100 Units/ml Inj SC SCH (21:12)
--- NOTE | 2018-06-14 08:04 | PCM.PYCHPN ---
Psychiatric Progress Note - Psychiatric Progress Note Patient seen today, length of contact: Pt evaluated, case discussed w/ team, chart reviewed Patient Chief Complaint: Depression Problems Identified/Issues Discussed: Patient continues to report feeling depressed. NO AH/VH/SI/HI. Patient continues to lack insight into her medical issues and treatment. She continues to have cognitive deficits. SW arranged family meeting with patient's grandson today. Mini Mental State Exam on 06/13/18: Scored 11/30; unable to state date/day/month/year, 0/3 word recall; unable to subtract serial 7s, unable to write sentence, unable to copy hexagon shapes. Patient is also unable to draw a clock properly. Medication Change: No Medical Record Reviewed: Yes Consults ordered or reviewed: Medicine consult Mental Status Examination - Cognitive Function Orientation: Person, Place Memory: Impaired Attention: Poor Concentration: Poor Association: Loose Fund of Knowledge: Poor Decription of patient's judgement and insights: Poor I/J - Mood Mood: Depressed - Affect Affect: Constricted, Depressed - Formal Thought Process Formal Thought Process: Loosening of associations Psychotic Thoughts and Behaviors: No AH/VH/paranoia/delusions - Suicidal Ideation Suicidal Ideation: No - Homicidal Ideation Homicidal Ideation: No Goal/Treatment Plan - Goal/Treatment Plan Need for Continued Stay: Severe depression anxiety, Severe functional impairment Progress Toward Problem(s) and Goals/Treatment Plan: Depressive Disorder; Dementia -Continue Remeron 7.5 mg PO HS -Individual and group therapy -Psychoeducation -SW arranged family meeting w/ patient's grandson -Disposition planning
[2018-06-14] MEDS: Fluticasone-Salmeterol 250-50mcg Diskus IH SCH ×2 (08:19→21:23)
[2018-06-14] MEDS: Insulin Regular 100 units/ml SC SCH ×4 (08:20→21:24)
[2018-06-14] MEDS: guaiFENesin DM 200 mg-20 mg/10 ml UD PO SCH ×2 (08:25→12:12)
[2018-06-14] MEDS: Tiotropium 18 mcg Cap For Inhalation IH SCH (08:26)
--- NOTE | 2018-06-14 09:03 | PN ---
DATE: 06/13/2018 SUBJECTIVE: The patient seen and examined. Interim events noted. The patient remains in geropsych unit. The patient feels okay. Denies any specific complaint. No chest pain. No shortness of breath. PHYSICAL EXAMINATION: GENERAL: The patient is in no acute distress. VITAL SIGNS: Stable. HEART: S1 and S2, normal, regular. LUNGS: Good bilateral air exchange. ABDOMEN: Soft, nontender. EXTREMITIES: No edema. No calf swelling. No tenderness. No acute ischemia. CENTRAL NERVOUS SYSTEM: Essentially unchanged. DIAGNOSTIC DATA: Available diagnostic data reviewed. Hemoglobin A1c is 14. The patient obviously is noncompliant with medication. Case and plan discussed with the patient. Case also discussed with psychiatrist. Plan as ordered. Mello Cordova MD
--- NOTE | 2018-06-14 10:21 | PN ---
DATE: 06/14/2018 SUBJECTIVE: The patient seen and examined. Interim events noted. Psychiatric followup and intervention noted and appreciated. The patient remains in geropsych unit. ____. Denies any specific complaint. No chest pain or shortness of breath. PHYSICAL EXAMINATION: GENERAL: The patient is in no acute distress. VITAL SIGNS: Stable. HEART EXAM: S1, S2, normal and regular. LUNGS: Good bilateral air exchange. ABDOMEN: Soft and nontender. EXTREMITIES: No edema. No calf swelling. No tenderness. No acute ischemia. CENTRAL NERVOUS EXAM: Essentially unchanged. DIAGNOSTIC DATA: Available diagnostic data reviewed. Accu-Chek remains elevated. ASSESSMENT AND PLAN: The patient is medically stable, but diabetes remains uncontrollable ____. Mello Cordova MD
[2018-06-14] MEDS ORDERED: guaiFENesin DM 200 mg-20 mg/10 ml UD PO SCH (17:00)
[2018-06-14] MEDS: guaiFENesin 100 mg/5 ml Syrup UD PO SCH (17:45)
[2018-06-14] MEDS ORDERED: Insulin Detemir 100 Units/ml Inj SC SCH (22:00)
[2018-06-15] MEDS: Fluticasone-Salmeterol 250-50mcg Diskus IH SCH ×2 (08:43→21:12)
[2018-06-15] MEDS: Insulin Regular 100 units/ml SC SCH ×4 (08:45→21:13)
[2018-06-15] MEDS: Tiotropium 18 mcg Cap For Inhalation IH SCH (08:46)
[2018-06-15] MEDS: guaiFENesin 100 mg/5 ml Syrup UD PO SCH ×3 (08:46→17:10)
--- NOTE | 2018-06-15 08:48 | PCM.PYCHPN ---
Psychiatric Progress Note - Psychiatric Progress Note Patient seen today, length of contact: Pt evaluated, case discussed w/ team, chart reviewed Patient Chief Complaint: Depression Problems Identified/Issues Discussed: SW had family meeting with patient and her grandson (see SW note). Patient is agreeable to halfway placement at this time and psychoeducation was provided to the patient and her grandson that the patient has neurocognitive impairments. Patient continues to report feeling depressed. NO AH/VH/SI/HI. Medication Change: No Medical Record Reviewed: Yes Consults ordered or reviewed: Medicine consult Mental Status Examination - Cognitive Function Orientation: Person, Place Memory: Impaired Attention: Poor Concentration: Poor Association: Loose Fund of Knowledge: Poor Decription of patient's judgement and insights: Poor I/J - Mood Mood: Depressed - Affect Affect: Constricted, Depressed - Formal Thought Process Formal Thought Process: Loosening of associations Psychotic Thoughts and Behaviors: No AH/VH/paranoia/delusions - Suicidal Ideation Suicidal Ideation: No - Homicidal Ideation Homicidal Ideation: No Goal/Treatment Plan - Goal/Treatment Plan Need for Continued Stay: Severe depression anxiety, Severe functional impairment Progress Toward Problem(s) and Goals/Treatment Plan: Depressive Disorder; Dementia -Continue Remeron 7.5 mg PO HS -Start Aricept 5 mg PO HS -Individual and group therapy -Psychoeducation -Disposition planning Estimated Date of D/C: 06/22/18
--- NOTE | 2018-06-15 09:27 | CP.PCM.CON ---
History of Present Illness - History of Present Illness History of Present Illness: Pt is a 77 year old female admitted to the geropsych unit and referred to the expert medical writer for evaluation. On the DRS, pt scored an overall score of 82. Pt scored in the Deficient Range on all tasks. Pt's Attention, Construction, Concept ualization, Memory and Initiation skills all fell in the Deficient Range. Pt was unable to state the year, day, date, president, and was unable to describe recent events. Significant cognitive/deficits evident on evaluation. Overall 82 Attention 29 Constuction 2 Conceptualization 25 Memory 9 Initiation 17 Thank you for this referral, Dr. Mitchell Past Patient History - Infectious Disease Hx of Infectious Diseases: None - Past Medical History & Family History Past Medical History?: Yes - Past Social History Smoking Status: Never Smoked - CARDIAC Hx Congestive Heart Failure: Yes Hx Hypercholesterolemia: Yes Hx Hypertension: Yes Hx Peripheral Edema: Yes - PULMONARY Hx Asthma: Yes Hx Chronic Obstructive Pulmonary Disease (COPD): Yes (asthma) - NEUROLOGICAL HX Cerebrovascular Accident: No Hx Seizures: No - HEENT Hx HEENT Problems: Yes Hx Cataracts: Yes - RENAL Hx Chronic Kidney Disease: No - ENDOCRINE/METABOLIC Hx Diabetes Mellitus Type 2: Yes - HEMATOLOGICAL/ONCOLOGICAL Hx Human Immunodeficiency Virus (HIV): No - INTEGUMENTARY Hx Dermatological Problems: No - MUSCULOSKELETAL/RHEUMATOLOGICAL Hx Arthritis: Yes (B knees) - GASTROINTESTINAL Hx Gastrointestinal Disorders: Yes Hx Constipation: Yes Hx Gastroesophageal Reflux: Yes - GENITOURINARY/GYNECOLOGICAL Hx Sexually Transmitted Disorders: No - PSYCHIATRIC Hx Anxiety: Yes Hx Depression: Yes Hx Substance Use: No - SURGICAL HISTORY Hx Cholecystectomy: Yes - ANESTHESIA Hx Anesthesia: Yes Hx Anesthesia Reactions: No Hx Malignant Hyperthermia: No Meds Home Medications: Home Medication List Medication Instructions Recorded Confirmed Type Chlorpheniramine/Dextromethorp 1 each PO Q4 PRN 5 Days tablet 06/11/18 Rx [Coricidin Hbp Cough & Cold Tab] Fluticasone Propionate [Flonase] 1 spr NS BID PRN 5 Days spr 06/11/18 Rx Losartan/Hydrochlorothiazide 1 each PO DAILY 7 Days tablet 06/11/18 Rx [Losartan-Hctz 100-25 mg Tab] Allergies/Adverse Reactions: Allergies Allergy/AdvReac Type Severity Reaction Status Date / Time celecoxib [From Celebrex] Allergy RASH Verified 06/07/18 19:23 ibuprofen [From Motrin] Allergy RASH Verified 06/07/18 19:23 Penicillins Allergy RASH Verified 06/07/18 19:23 - Medications Medications: Current Medications Acetaminophen (Tylenol 325mg Tab) 650 mg PO Q4 PRN PRN Reason: Pain, moderate (4-7) Last Admin: 06/13/18 21:39 Dose: 650 mg Al Hydrox/Mg Hydrox/Simethicone (Maalox Plus 30 Ml) 30 ml PO Q4 PRN PRN Reason: Dyspepsia Albuterol (Ventolin Hfa 90 Mcg/Actuation (8 G)) 2 puff IH Q4 PRN PRN Reason: Shortness of Breath Amlodipine Besylate (Norvasc) 5 mg PO DAILY [facility] Donepezil HCl (Aricept) 5 mg PO HS [facility] Guaifenesin (Robitussin) 100 mg PO TID [facility] Last Admin: 06/15/18 08:46 Dose: 100 mg Hydrochlorothiazide (Hydrodiuril) 25 mg PO DAILY [facility] Last Admin: 06/15/18 08:45 Dose: 25 mg Insulin Detemir (Levemir) 48 units SC HS [facility] Insulin Human Regular (Humulin R) 0 units SC [facility]; Protocol Last Admin: 06/15/18 08:45 Dose: Not Given Lorazepam (Ativan) 0.5 mg PO HS PRN PRN Reason: Insomnia Stop: 06/25/18 22:28 Lorazepam (Ativan) 0.5 mg PO Q6 PRN PRN Reason: Anixety/Agitation Stop: 06/25/18 22:28 Losartan Potassium (Cozaar) 100 mg PO DAILY [facility] Last Admin: 06/15/18 08:44 Dose: 100 mg Magnesium Hydroxide (Milk Of Magnesia) 30 ml PO HS PRN PRN Reason: Constipation Metformin HCl (Glucophage) 1,000 mg PO BID [facility] Last Admin: 06/15/18 08:44 Dose: 1,000 mg Mirtazapine (Remeron) 7.5 mg PO HS [facility] Last Admin: 06/14/18 21:28 Dose: 7.5 mg Fluticasone/Salmeterol (Advair Diskus 250/50) 1 puff IH Q12 [facility] Last Admin: 06/15/18 08:43 Dose: 1 puff Sitagliptin Phosphate (Januvia) 100 mg PO DAILY [facility] Last Admin: 06/15/18 08:45 Dose: 100 mg Tiotropium [place] (Spiriva) 18 mcg IH DAILY [facility] Last Admin: 06/15/18 08:46 Dose: 18 mcg Results - Vital Signs Recent Vital Signs: Last Vital Signs Temp 97.4 F L 06/15/18 06:00 Pulse 77 06/15/18 08:44 Resp 19 06/15/18 06:00 BP 163/74 H 06/15/18 08:44 Pulse Ox 100 06/13/18 01:05 - Labs Result Diagrams: 06/11/18 13:40 06/11/18 13:40 Labs: Laboratory Results - last 24 hr 06/14/18 06/14/18 06/14/18 06:14 11:21 15:40 POC Glucose (mg/dL) 201 H 254 H 307 H 06/14/18 06/15/18 20:09 06:03 POC Glucose (mg/dL) 231 H 119 H
--- NOTE | 2018-06-15 10:15 | PN ---
DATE: 06/15/2018 SUBJECTIVE: The patient seen and examined. Interim events noted. Psychiatric followup noted and appreciated. Case discussed with psychiatrist and social work manager. The patient is for custodial placement, group home, but at this time, the patient complains of generalized weakness and neuropathic symptoms in extremities leading to pain and unsteadiness. No chest pain. No shortness of breath. PHYSICAL EXAMINATION: GENERAL: The patient is in no acute distress. VITAL SIGNS: Stable. HEART: S1 and S2. Normal and regular. LUNGS: Good bilateral air exchange. ABDOMEN: Soft and nontender. EXTREMITIES: No sign of acute fracture or dislocation or injury, but the patient does have neuropathy and unsteadiness. No sign of acute distal neurovascular compromise. DIAGNOSTIC DATA: Available diagnostic data reviewed. Accu-Chek still remains high. Blood pressure also is to the higher side. ASSESSMENT AND PLAN: Plan as ordered. The patient will benefit from subacute rehabilitation for neuropathy and gait training to prevent falls and fall-related injury. Plan as ordered. Case and plan discussed with the patient. Mello Cordova MD
[2018-06-15] MEDS ORDERED: Insulin Detemir 100 Units/ml Inj SC SCH (22:00)
--- NOTE | 2018-06-16 08:53 | PN ---
DATE: 06/16/2018 SUBJECTIVE: The patient is seen and examined. Interim events noted. Patient remains in geropsych unit. Psychiatric followup and psychologist intervention noted and appreciated. Patient denied any specific complaints. No specific issue reported by nursing staff other than elevated blood sugar. PHYSICAL EXAMINATION: GENERAL: Patient is in no acute distress. VITAL SIGNS: Stable. Physical exam is essentially unchanged. DIAGNOSTIC DATA: Available diagnostic data reviewed. ASSESSMENT AND PLAN: Accu-Chek remains elevated. Plan as ordered. We will change Levemir to 26 units twice a day. Plan communicated with the nursing staff. Mello Cordova MD
[2018-06-16] MEDS: Insulin Regular 100 units/ml SC SCH ×4 (09:09→21:00)
[2018-06-16] MEDS: Fluticasone-Salmeterol 250-50mcg Diskus IH SCH ×2 (09:10→21:05)
[2018-06-16] MEDS: Tiotropium 18 mcg Cap For Inhalation IH SCH (09:14)
[2018-06-16] MEDS: guaiFENesin 100 mg/5 ml Syrup UD PO SCH ×3 (09:17→17:11)
--- NOTE | 2018-06-16 09:29 | PCM.PYCHPN ---
Psychiatric Progress Note - Psychiatric Progress Note Patient seen today, length of contact: Pt evaluated, case discussed w/ team, chart reviewed Patient Chief Complaint: Depression Problems Identified/Issues Discussed: Patient reports that her mood is improving. She continues to have chronic cognitive deficits and poor insight into her memory deficits. NO AH/VH/SI/HI. Medication Change: No Medical Record Reviewed: Yes Consults ordered or reviewed: Medicine consult Psychology consult 06/15/18 Pt is a 77 year old female admitted to the geropsych unit and referred to the selling underwriter for evaluation. On the DRS, pt scored an overall score of 82. Pt scored in the Deficient Range on all tasks. Pt's Attention, Construction, Conceptualization, Memory and Initiation skills all fell in the Deficient Range. Pt was unable to state the year, day, date, president, and was unable to describe recent events. Significant cognitive/deficits evident on evaluation. Overall 82 Attention 29 Constuction 2 Conceptualization 25 Memory 9 Initiation 17 Thank you for this referral, Dr. Mitchell Mental Status Examination - Cognitive Function Orientation: Person, Place Memory: Impaired Attention: Poor Concentration: Poor Association: Loose Fund of Knowledge: Poor Decription of patient's judgement and insights: Poor I/J - Mood Mood: Depressed - Affect Affect: Constricted, Depressed - Formal Thought Process Formal Thought Process: Loosening of associations Psychotic Thoughts and Behaviors: No AH/VH/paranoia/delusions - Suicidal Ideation Suicidal Ideation: No - Homicidal Ideation Homicidal Ideation: No Goal/Treatment Plan - Goal/Treatment Plan Need for Continued Stay: Severe depression anxiety, Severe functional impairment Progress Toward Problem(s) and Goals/Treatment Plan: Depressive Disorder; Dementia -Continue Remeron 7.5 mg PO HS -Continue Aricept 5 mg PO HS -Individual and group therapy -Psychoeducation -Disposition planning Estimated Date of D/C: 06/22/18
[2018-06-16] MEDS ORDERED: Insulin Detemir 100 Units/ml Inj SC SCH (22:00)
[2018-06-17] MEDS: Insulin Regular 100 units/ml SC SCH ×4 (08:20→21:08)
[2018-06-17] MEDS: Tiotropium 18 mcg Cap For Inhalation IH SCH (08:21)
[2018-06-17] MEDS: Fluticasone-Salmeterol 250-50mcg Diskus IH SCH ×2 (08:23→21:06)
[2018-06-17] MEDS: Insulin Detemir 100 Units/ml Inj SC SCH ×2 (08:28→16:45)
[2018-06-17] MEDS: guaiFENesin 100 mg/5 ml Syrup UD PO SCH ×3 (08:30→16:38)
--- NOTE | 2018-06-17 08:32 | PCM.PYCHPN ---
Psychiatric Progress Note - Psychiatric Progress Note Patient seen today, length of contact: Pt evaluated, case discussed w/ team, chart reviewed Patient Chief Complaint: Depression Problems Identified/Issues Discussed: Patient reports that her mood continues to improve. She continues to have chronic cognitive deficits and poor insight into her memory deficits. NO AH/VH/SI/HI. Medication Change: No Medical Record Reviewed: Yes Consults ordered or reviewed: Medicine consult Psychology consult 06/15/18 Pt is a 77 year old female admitted to the geropsych unit and referred to the rewriter for evaluation. On the DRS, pt scored an overall score of 82. Pt scored in the Deficient Range on all tasks. Pt's Attention, Construction, Conceptualization, Memory and Initiation skills all fell in the Deficient Range. Pt was unable to state the year, day, date, president, and was unable to describe recent events. Significant cognitive/deficits evident on evaluation. Overall 82 Attention 29 Constuction 2 Conceptualization 25 Memory 9 Initiation 17 Thank you for this referral, Dr. Mitchell Mental Status Examination - Cognitive Function Orientation: Person, Place Memory: Impaired Attention: Poor Concentration: Poor Association: Loose Fund of Knowledge: Poor Decription of patient's judgement and insights: Poor I/J - Mood Mood: Depressed - Affect Affect: Constricted, Depressed - Formal Thought Process Formal Thought Process: Loosening of associations Psychotic Thoughts and Behaviors: No AH/VH/paranoia/delusions - Suicidal Ideation Suicidal Ideation: No - Homicidal Ideation Homicidal Ideation: No Goal/Treatment Plan - Goal/Treatment Plan Need for Continued Stay: Severe depression anxiety, Severe functional impairment Progress Toward Problem(s) and Goals/Treatment Plan: Depressive Disorder; Dementia -Continue Remeron 7.5 mg PO HS -Continue Aricept 5 mg PO HS -Individual and group therapy -Psychoeducation -Disposition planning Estimated Date of D/C: 06/22/18
--- NOTE | 2018-06-17 11:10 | PN ---
DATE: 06/17/2018 SUBJECTIVE: Patient seen and examined. Interim events noted. Psychiatric followup and psychologist intervention noted and appreciated. Patient remains in geropsych unit, sleeping, arousable. Patient denied any specific complaints. No specific issue reported by nursing staff. PHYSICAL EXAMINATION: GENERAL: Patient is in no acute distress. VITAL SIGNS: Stable. Physical exam is essentially unchanged. Accu-Chek still remains elevated. We will switch patient's Levemir to 28 units twice a day. PLAN: As ordered. Mello Cordova MD
--- NOTE | 2018-06-18 07:51 | PCM.PYCHPN ---
Psychiatric Progress Note - Psychiatric Progress Note Patient seen today, length of contact: Pt evaluated, case discussed w/ team, chart reviewed Patient Chief Complaint: Inability to care for self Problems Identified/Issues Discussed: Patient reports that her mood has improved. She denies feeling acutely depressed or anxious. She continues to have chronic memory deficits. NO AH/VH/SI/HI. Patient is aware she will be referred for residential placement and is agreeable. Medication Change: No Medical Record Reviewed: Yes Consults ordered or reviewed: Medicine consult Psychology consult 06/15/18 Pt is a 77 year old female admitted to the geropsych unit and referred to the lyric writer for evaluation. On the DRS, pt scored an overall score of 82. Pt scored in the Deficient Range on all tasks. Pt's Attention, Construction, Conceptualization, Memory and Initiation skills all fell in the Deficient Range. Pt was unable to state the year, day, date, president, and was unable to stefan cribe recent events. Significant cognitive/deficits evident on evaluation. Overall 82 Attention 29 Constuction 2 Conceptualization 25 Memory 9 Initiation 17 Thank you for this referral, Dr. Mitchell Mental Status Examination - Cognitive Function Orientation: Person, Place Memory: Impaired Attention: Poor Concentration: Poor Association: Loose Fund of Knowledge: Poor Decription of patient's judgement and insights: Chronic limitations in I/J due to dementia - Mood Mood: Neutral - Affect Affect: Broad - Speech Speech: Appropriate - Formal Thought Process Formal Thought Process: Loosening of associations Psychotic Thoughts and Behaviors: No AH/VH/paranoia/delusions - Suicidal Ideation Suicidal Ideation: No - Homicidal Ideation Homicidal Ideation: No Goal/Treatment Plan - Goal/Treatment Plan Need for Continued Stay: Severe functional impairment Progress Toward Problem(s) and Goals/Treatment Plan: Dementia (without behavioral disturbances); Depressive Disorder -Continue Remeron 7.5 mg PO HS -Continue Aricept 5 mg PO HS -Individual and group therapy -Psychoeducation -Disposition planning- 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
[2018-06-18] MEDS: guaiFENesin 100 mg/5 ml Syrup UD PO SCH ×3 (08:39→18:09)
[2018-06-18] MEDS: Fluticasone-Salmeterol 250-50mcg Diskus IH SCH ×2 (08:39→21:17)
[2018-06-18] MEDS: Insulin Regular 100 units/ml SC SCH ×4 (08:40→21:42)
[2018-06-18] MEDS: Tiotropium 18 mcg Cap For Inhalation IH SCH (08:42)
[2018-06-18] MEDS: Insulin Detemir 100 Units/ml Inj SC SCH ×2 (08:43→18:12)
--- NOTE | 2018-06-18 14:03 | PN ---
DATE: 06/18/2018 SUBJECTIVE: The patient seen and examined. Interim events noted. Psychiatric followup and intervention noted and appreciated. The patient remains in geropsych unit. The patient feels okay. Denies any specific complaint. No chest pain. No shortness of breath. PHYSICAL EXAMINATION: GENERAL: The patient is in no acute distress. VITAL SIGNS: Stable. Physical examination is essentially unchanged. DIAGNOSTIC DATA: Available diagnostic data reviewed. ASSESSMENT AND PLAN: Overall, the patient's general medical condition is stable. Blood pressure is still on the slightly higher side. Plan as ordered. Case and plan was discussed with the patient. Mello Cordova MD
[2018-06-19] MEDS: Fluticasone-Salmeterol 250-50mcg Diskus IH SCH ×2 (08:33→21:19)
[2018-06-19] MEDS: Insulin Regular 100 units/ml SC SCH ×4 (08:35→21:20)
[2018-06-19] MEDS: Tiotropium 18 mcg Cap For Inhalation IH SCH (08:39)
[2018-06-19] MEDS: guaiFENesin 100 mg/5 ml Syrup UD PO SCH ×3 (08:39→16:12)
--- NOTE | 2018-06-19 09:11 | PCM.PYCHPN ---
Psychiatric Progress Note - Psychiatric Progress Note Patient seen today, length of contact: Pt evaluated, case discussed w/ team, chart reviewed Patient Chief Complaint: Inability to care for self Problems Identified/Issues Discussed: Patient reports that her mood is stable. She denies feeling acutely depressed or anxious. She continues to have chronic memory deficits. NO AH/VH/SI/HI. Patient is aware she will be referred for group home placement and is agre eable. Medication Change: No Medical Record Reviewed: Yes Consults ordered or reviewed: Medicine consult Psychology consult 06/15/18 Pt is a 77 year old female admitted to the geropsych unit and referred to the marketing underwriter for evaluation. On the DRS, pt scored an overall score of 82. Pt scored in the Deficient Range on all tasks. Pt's Attention, Construction, Conceptualization, Memory and Initiation skills all fell in the Deficient Range. Pt was unable to state the year, day, date, president, and was unable to descri be recent events. Significant cognitive/deficits evident on evaluation. Overall 82 Attention 29 Constuction 2 Conceptualization 25 Memory 9 Initiation 17 Thank you for this referral, Dr. Mitchell Mental Status Examination - Cognitive Function Orientation: Person, Place Memory: Impaired Attention: Poor Concentration: Poor Association: Loose Fund of Knowledge: Poor Decription of patient's judgement and insights: Chronic limitations in I/J due to dementia - Mood Mood: Neutral - Affect Affect: Broad - Speech Speech: Appropriate - Formal Thought Process Formal Thought Process: Loosening of associations Psychotic Thoughts and Behaviors: No AH/VH/paranoia/delusions - Suicidal Ideation Suicidal Ideation: No - Homicidal Ideation Homicidal Ideation: No Goal/Treatment Plan - Goal/Treatment Plan Need for Continued Stay: Severe functional impairment Progress Toward Problem(s) and Goals/Treatment Plan: Dementia (without behavioral disturbances); Depressive Disorder -Continue Remeron 7.5 mg PO HS -Continue Aricept 5 mg PO HS -Individual and group therapy -Psychoeducation -Disposition planning- refer for chief gauger placement Estimated Date of D/C: 06/22/18
--- NOTE | 2018-06-19 13:46 | PN ---
DATE: 06/19/2018 SUBJECTIVE: The patient is seen and examined. Interim events noted. Psychiatric followup and intervention noted and appreciated. The patient remains in geropsych unit. Awake, responsive, feels okay. Denies any specific complaints. No specific issue reported by nursing staff. PHYSICAL EXAMINATION GENERAL: The patient is in no acute distress. VITAL SIGNS: Stable. Physical examination is essentially unchanged. DIAGNOSTIC DATA: Available diagnostic data reviewed. ASSESSMENT AND PLAN: Overall, the patient's general medical condition stable. Plan as ordered. Mello Cordova MD
[2018-06-19] MEDS: Insulin Detemir 100 Units/ml Inj SC SCH (16:23)
[2018-06-20] MEDS: Fluticasone-Salmeterol 250-50mcg Diskus IH SCH ×2 (08:22→21:06)
[2018-06-20] MEDS: Tiotropium 18 mcg Cap For Inhalation IH SCH (08:23)
[2018-06-20] MEDS: Insulin Regular 100 units/ml SC SCH ×4 (08:25→21:07)
[2018-06-20] MEDS: guaiFENesin 100 mg/5 ml Syrup UD PO SCH ×3 (08:42→17:00)
[2018-06-20] MEDS: Insulin Detemir 100 Units/ml Inj SC SCH ×2 (09:01→17:00)
--- NOTE | 2018-06-20 11:21 | PCM.PYCHPN ---
Psychiatric Progress Note - Psychiatric Progress Note Patient seen today, length of contact: Pt evaluated, case discussed w/ team, chart reviewed Patient Chief Complaint: Inability to care for self Problems Identified/Issues Discussed: No new events overnight. Patient reports that her mood is stable. She denies feeling acutely depressed or anxious. She continues to have chronic memory deficits. NO AH/VH/SI/HI. Patient is aware she will be referred for nursing h ome placement and is agreeable. Medication Change: No Medical Record Reviewed: Yes Consults ordered or reviewed: Medicine consult Psychology consult 06/15/18 Pt is a 77 year old female admitted to the geropsych unit and referred to the typewriter tester for evaluation. On the DRS, pt scored an overall score of 82. Pt scored in the Deficient Range on all tasks. Pt's Attention, Construction, Conceptualization, Memory and Initiation skills all fell in the Deficient Range. Pt was unable to state the year, day, date, president, and was unable to describe recent events. Significant cognitive/deficits evident on evaluation. Overall 82 Attention 29 Constuction 2 Conceptualization 25 Memory 9 Initiation 17 Thank you for this referral, Dr. Mitchell Mental Status Examination - Cognitive Function Orientation: Person, Place Memory: Impaired Attention: Poor Concentration: Poor Association: Loose Fund of Knowledge: Poor Decription of patient's judgement and insights: Chronic limitations in I/J due to dementia - Mood Mood: Neutral - Affect Affect: Broad - Speech Speech: Appropriate - Formal Thought Process Formal Thought Process: Loosening of associations Psychotic Thoughts and Behaviors: No AH/VH/paranoia/delusions - Suicidal Ideation Suicidal Ideation: No - Homicidal Ideation Homicidal Ideation: No Goal/Treatment Plan - Goal/Treatment Plan Need for Continued Stay: Severe functional impairment Progress Toward Problem(s) and Goals/Treatment Plan: Dementia (without behavioral disturbances); Depressive Disorder -Continue Remeron 7.5 mg PO HS -Continue Aricept 5 mg PO HS -Individual and group therapy -Psychoeducation -Disposition planning- refer for senior living placement Estimated Date of D/C: 06/22/18
--- NOTE | 2018-06-20 13:54 | PN ---
DATE: 06/20/2018 SUBJECTIVE: The patient seen and examined. Interim events noted. Psychiatric followup and intervention noted and appreciated. The patient remains in geropsych unit. Awake, responsive, ambulatory. Feels okay. Denies any specific complaint. No chest pain or shortness of breath. PHYSICAL EXAMINATION: GENERAL: The patient is in no acute distress. VITAL SIGNS: Stable. HEART: S1 and S2. Normal and regular. LUNGS: Good bilateral air exchange. ABDOMEN: Soft and nontender. EXTREMITIES: No edema. No calf swelling. No tenderness. No acute ischemia. CENTRAL NERVOUS SYSTEM: Essentially unchanged. DIAGNOSTIC DATA: Available diagnostic data reviewed. ASSESSMENT AND PLAN: Overall, the patient is medically stable. Will require subacute rehab upon discharge for gait training and safety. Plan as ordered. Mello Cordova MD
--- NOTE | 2018-06-20 15:04 | PCM.BM ---
Treatment Plan Problems - Problems identified on initial assessmt Hopelessness/Helplessness Date Initiated: 06/11/18 Time Initiated: 22:46 Assessment reference: NA Status: Active Altered Sleep Patterns Date Initiated: 06/11/18 Time Initiated: 22:46 Assessment reference: NA Status: Active Medication nonadherence Date Initiated: 06/11/18 Time Initiated: 22:47 Assessment reference: NA Status: Active Treatment assets and liabiliti Patient Assests: adapts well, cooperative, self-reliant, ADL independent, negotiates basic needs Patient Liabilities: live alone, financial problems, medical problems - Milieu Protocol Maintain good personal hygiene: every shift Encourage regular showers, every shift Remind patient to perform daily oral care, every shift Assist patient to perform ADL's Maintain personal safety: daily Educate patient to report safety concerns to staff, daily Monitor environment for contraband/sharps Medication safety: Monitor for expected outcome, potential side effects: daily, Assess barriers to learning: daily, Assess readiness for medication education: daily Milieu Narrative: Dementia (without behavioral disturbances); Depressive Disorder -Continue Remeron 7.5 mg PO HS -Continue Aricept 5 mg PO HS -Individual and group therapy -Psychoeducation -Disposition planning- refer for terminal operations manager placement Family Contact Family involvement: Family/SO is involved Family contact: Patient agrees to contact, Family has been contacted by patient, Telephone contact initiated by staff Family contact name: Julian Merritt- jose Family contacted how many times per week?: 1 Family contact comment: Please refer to SW progress Note dated 06/13/2018 - Goals for Treatment Patient goals for treatment: Pt will improve overall mood. Pt will develop strategies for thought distraction ruminating on the past. Pt will be medication compliant. Pt will take medicationsas prescribed on a daily basis. Pt will report any medications concerns to the doctor as soon as possible. Discharge/Continuing Care - Education Needs Education Needs: Family Medication, Family Diagnosis/Disease Process, Family Placement options, Family Community resources, Family Uses of Medical Equipment, Family Health Practices/Safety, Family Personal Hygiene/Grooming, Family Aftercare Safety Plan, Patient Medication, Patient Diagnosis/Disease Process, Patient Placement options, Patient Community resources, Patient Uses of Medical Equipment, Patient Health Practices/Safety, Patient Personal Hygiene/Grooming, Patient Aftercare Safety Plan - Discharge Discharge Criteria: Tolerates medication w/o severe side effects, Normal sleep pattern, Ability to care for self, Reduction of target symptoms Discharge to:: Other (NH placement discussed with pt and pt is hesistant at this time. Pt agreed to meet with SW and grandson to discuss NH placement and referral.) - Additional Comments 06/13/18 14:51 Pt seen and discussed in team meeting. Reason for admission reviewed and discussed. Pt reported she was referred to the ED due high blood sugar. Pt reported that she ran out of medication for one week because her PMD, Dr. Meli Bloom MD went on vacation. Pt reported feeling depressed and sad "sometimes." Pt reported that her son 5 months ago due to diabetes. Pt reported that since son she was evicted form her apartment due to rent non-payment. Pt reported that she is currently staying at a intermediate in [place], [place]. Pt reported that her wish is to rent a room and be able to live with her grandson again. Pt reported that she rather than be from her grandson. Pt reported that she raised her grandson and cannot be from him. Pt reported that she has applied for housing but "nothing." Pt reported that her memory is "sometimes i can remember and sometimes i cannot." Pt's medical and social issues reviewed. Pt verbalized understanding of what could happen if she does not comply with medications. Pt reported that she is aware that if she stop taking her diabetes medication that she can . Pt's medications reviewed and discussed. Tx plan reviewed and discussed. Pt is agreeable to meet with SW and grandson tomorrow, 06/14 to review and discuss group home placement. Pt is hesitant at this time because she does not wish to leave her grandson alone. SW will continue to follow case. - Treatment Team Participation Patient/Family/SO Statement: Dementia (without behavioral disturbances); Depressive Disorder -Continue Remeron 7.5 mg PO HS -Continue Aricept 5 mg PO HS -Individual and group therapy -Psychoeducation -Disposition planning- refer for senior living placement Discussed with Family/SO: No Was Patient/Family/SO present at Treatment Team Meeting: Yes Treatment Plan Review Family/SO/Caregiver participation: No Additional Comments: Pt seen and discussed in team meeting. Pt's progress and bx on the unit reviewed. Pt continues to present with poor memory and poor insight and judgment into illness. Pt reported feeling "good thank god." Pt reported having a good appetite and denied any sleep disturbances. Pt denied having memory issues and forgetfulness. Pt is not in agreement with dx and continues to report that she wishes to be discharged back tot he intermediate. Pt unable to recall todays date and conversation wit clinical social work therapist earlier in the AM. Pt reported that she did speak to radio news writer but cannot recall the topic of the subject. Pt reported that her diabetes are "fine, I'm good." Psycho-education provided. Pt's medications reviewed and discussed. Pt continues to verbalize feelings of worrisome for her grandson's health and whereabouts. Tx plan reviewed and discussed. Pt is agreeable to remain in the hospital, but hesitant to group home placement. Human Resource Management Instructor advised pt that grandson and radio news writer will talk to her about placement again as she cannot return t the intermediate. SW will continue to follow case. - Problem Hopelessness/Helplessness Date Initiated: 06/11/18 Time Initiated: 22:46 Progress toward outcomes: unchanged Altered Sleep Patterns Date Initiated: 06/11/18 Time Initiated: 22:46 Progress toward outcomes: improved (Pt reported improved sleep pattern. Pt RN report, pt observed to be asleep throughout the power and recovery shift engineer.) Medication nonadherence Date Initiated: 06/11/18 Time Initiated: 22:47 Progress toward outcomes: improved (Pt compliant with prescribed medication on the unit.) Impaired ambulation/stair climbing Date Initiated: 06/11/18 Progress toward outcomes: unchanged (Pt evaluated by PT and advised that WILL is needed due to impaired gait as a result of the pain and diabetic neuropathy.) Impaired Functional transfers Date Initiated: 06/11/18 Progress toward outcomes: improved Altered Thought Process Date Initiated: 06/11/18 Progress toward outcomes: unchanged (Pt continues to exhibit poor memory and severe cognitive deficits. Pt is increasingly forgetful and confused.) Nutrition Less Than Body Requirements Date Initiated: 06/11/18 Progress toward outcomes: improved (Pt's appetite has improved since admission.) - Discharge / Continuing Care Discharge to:: Residential Behavioral Health Services: Other (Medication management; structured group therapy) Health Needs: Follow up care/test, Doctor appointments, Special equipment, Nutritional, Medications/Rx, Educational, Recreational/Social
[2018-06-21] MEDS: Insulin Regular 100 units/ml SC SCH ×4 (08:25→21:13)
[2018-06-21] MEDS: Tiotropium 18 mcg Cap For Inhalation IH SCH (08:27)
[2018-06-21] MEDS: Insulin Detemir 100 Units/ml Inj SC SCH (08:28)
[2018-06-21] MEDS: guaiFENesin 100 mg/5 ml Syrup UD PO SCH ×3 (08:28→16:45)
[2018-06-21] MEDS: Fluticasone-Salmeterol 250-50mcg Diskus IH SCH ×2 (08:29→21:10)
--- NOTE | 2018-06-21 12:47 | CP.PCM.PN ---
<Patricia Prince - Last Filed: 06/21/18 17:21> Subjective - Date & Time of Evaluation Date of Evaluation: 06/21/18 Time of Evaluation: 17:00 - Subjective Subjective: Pt seen/evaluated, discussed with Dr. Cordova. No acute events overnight. Denies chest pain, abdominal pain, shortness of breath. Objective - Vital Signs/Intake and Output Vital Signs (last 24 hours): Temp Pulse Resp BP Pulse Ox 98.0 F 66 18 111/65 100 06/21/18 05:54 06/21/18 08:26 06/21/18 05:54 06/21/18 08:26 06/13/18 01:05 - Medications Medications: Current Medications Acetaminophen (Tylenol 325mg Tab) 650 mg PO Q4 PRN PRN Reason: Pain, moderate (4-7) Last Admin: 06/13/18 21:39 Dose: 650 mg Al Hydrox/Mg Hydrox/Simethicone (Maalox Plus 30 Ml) 30 ml PO Q4 PRN PRN Reason: Dyspepsia Last Admin: 06/16/18 14:53 Dose: 30 ml Albuterol (Ventolin Hfa 90 Mcg/Actuation (8 G)) 2 puff IH Q4 PRN PRN Reason: Shortness of Breath Amlodipine Besylate (Norvasc) 10 mg PO DAILY [facility] Last Admin: 06/21/18 08:25 Dose: 10 mg Donepezil HCl (Aricept) 5 mg PO HS [facility] Last Admin: 06/20/18 21:06 Dose: 5 mg Guaifenesin (Robitussin) 100 mg PO TID [facility] Last Admin: 06/21/18 12:26 Dose: 100 mg Hydrochlorothiazide (Hydrodiuril) 25 mg PO DAILY [facility] Last Admin: 06/21/18 08:25 Dose: 25 mg Insulin Detemir (Levemir) 32 units SC BID [facility] Insulin Human Regular (Humulin R) 0 units SC ACHS [facility]; Protocol Last Admin: 06/21/18 12:25 Dose: 3 u Lorazepam (Ativan) 0.5 mg PO HS PRN PRN Reason: Insomnia Stop: 06/25/18 22:28 Lorazepam (Ativan) 0.5 mg PO Q6 PRN PRN Reason: Anixety/Agitation Stop: 12/31/18 22:28 Losartan Potassium (Cozaar) 100 mg PO DAILY [facility] Last Admin: 06/21/18 08:26 Dose: 100 mg Magnesium Hydroxide (Milk Of Magnesia) 30 ml PO HS PRN PRN Reason: Constipation Metformin HCl (Glucophage) 1,000 mg PO BID [facility] Last Admin: 06/21/18 08:27 Dose: 1,000 mg Mirtazapine (Remeron) 7.5 mg PO HS [facility] Last Admin: 06/20/18 21:05 Dose: 7.5 mg Fluticasone/Salmeterol (Advair Diskus 250/50) 1 puff IH Q12 [facility] Last Admin: 06/21/18 08:29 Dose: 1 puff Sitagliptin Phosphate (Januvia) 100 mg PO DAILY [facility] Last Admin: 06/21/18 08:27 Dose: 100 mg Tiotropium [place] (Spiriva) 18 mcg IH DAILY [facility] Last Admin: 06/21/18 08:27 Dose: 18 mcg - Labs Labs: 06/11/18 13:40 06/11/18 13:40 - Constitutional Appears: No Acute Distress - Head Exam Head Exam: NORMAL INSPECTION - Eye Exam Eye Exam: Normal appearance - ENT Exam ENT Exam: Mucous Membranes Moist - Respiratory Exam Respiratory Exam: NORMAL BREATHING PATTERN - Extremities Exam Extremities Exam: Normal Inspection - Neurological Exam Neurological Exam: Alert - Skin Skin Exam: Warm Assessment and Plan - Assessment and Plan (Free Text) Assessment: 77 yo homeless F with HTN and DM2, admitted to [facility] due to depression and inability to care for self. Non-complaince with medication outside of facility. Blood sugars still elevated. Plan: - Primary psychiatric plan as per psych team - Continue current medical management as ordered, levemir 32 U SC BID - Encourage ambulation <Cordova,Mello K - Last Filed: 06/22/18 12:47> Objective - Vital Signs/Intake and Output Vital Signs (last 24 hours): Temp Pulse Resp BP Pulse Ox 97.4 F L 74 20 135/64 100 06/22/18 05:48 06/22/18 08:20 06/22/18 05:48 06/22/18 08:20 06/13/18 01:05 - Medications Medications: Current Medications Acetaminophen (Tylenol 325mg Tab) 650 mg PO Q4 PRN PRN Reason: Pain, moderate (4-7) Last Admin: 06/13/18 21:39 Dose: 650 mg Al Hydrox/Mg Hydrox/Simethicone (Maalox Plus 30 Ml) 30 ml PO Q4 PRN PRN Reason: Dyspepsia Last Admin: 06/16/18 14:53 Dose: 30 ml Albuterol (Ventolin Hfa 90 Mcg/Actuation (8 G)) 2 puff IH Q4 PRN PRN Reason: Shortness of Breath Amlodipine Besylate (Norvasc) 10 mg PO DAILY [facility] Last Admin: 06/22/18 08:20 Dose: 10 mg Donepezil HCl (Aricept) 5 mg PO HS [facility] Last Admin: 06/21/18 21:08 Dose: 5 mg Guaifenesin (Robitussin) 100 mg PO TID [facility] Last Admin: 06/22/18 12:38 Dose: 100 mg Hydrochlorothiazide (Hydrodiuril) 25 mg PO DAILY [facility] Last Admin: 06/22/18 08:18 Dose: 25 mg Insulin Detemir (Levemir) 34 units SC BID [facility] Last Admin: 06/22/18 08:19 Dose: 34 units Insulin Human Regular (Humulin R) 0 units SC [facility]; Protocol Last Admin: 06/22/18 12:37 Dose: 3 u Lorazepam (Ativan) 0.5 mg PO HS PRN PRN Reason: Insomnia Stop: 06/25/18 22:28 Lorazepam (Ativan) 0.5 mg PO Q6 PRN PRN Reason: Anixety/Agitation Stop: 06/25/18 22:28 Losartan Potassium (Cozaar) 100 mg PO DAILY [facility] Last Admin: 06/22/18 08:16 Dose: 100 mg Magnesium Hydroxide (Milk Of Magnesia) 30 ml PO HS PRN PRN Reason: Constipation Metformin HCl (Glucophage) 1,000 mg PO BID [facility] Last Admin: 06/22/18 08:16 Dose: 1,000 mg Mirtazapine (Remeron) 7.5 mg PO HS [facility] Last Admin: 06/21/18 21:08 Dose: 7.5 mg Fluticasone/Salmeterol (Advair Diskus 250/50) 1 puff IH Q12 [facility] Last Admin: 06/22/18 08:15 Dose: 1 puff Sitagliptin Phosphate (Januvia) 100 mg PO DAILY [facility] Last Admin: 06/22/18 08:18 Dose: 100 mg Tiotropium [place] (Spiriva) 18 mcg IH DAILY [facility] Last Admin: 06/22/18 08:21 Dose: 18 mcg - Labs Labs: 06/11/18 13:40 06/11/18 13:40 Assessment and Plan - Assessment and Plan (Free Text) Plan: Patient was personally seen and examined by me in rounds with residents. Available labs and diagnostic data reviewed. Case, Patient's condition and management plan discussed with residents in rounds. Agree with resident's progress note. Plan: As ordered.
--- NOTE | 2018-06-21 16:57 | PCM.PYCHPN ---
Psychiatric Progress Note - Psychiatric Progress Note Patient seen today, length of contact: Pt evaluated, case discussed w/ team, chart reviewed Patient Chief Complaint: i am having trouble remembering, i am going to go to correction, Problems Identified/Issues Discussed: alteration in cognition alteration in self care alteration in safety Medical Problems: per psychiatry per medicine per nursing per social work per recreational therapy Medication Change: No Medical Record Reviewed: Yes Consults ordered or reviewed: pt seen by dr everett Mental Status Examination - Cognitive Function Orientation: Person, Place Memory: Impaired Attention: Poor Concentration: Poor Association: Loose Fund of Knowledge: Poor Decription of patient's judgement and insights: poor - Mood Mood: Neutral - Affect Affect: Broad - Speech Speech: Appropriate - Formal Thought Process Formal Thought Process: Loosening of associations - Suicidal Ideation Suicidal Ideation: No - Homicidal Ideation Homicidal Ideation: No Goal/Treatment Plan - Goal/Treatment Plan Need for Continued Stay: Severe functional impairment Progress Toward Problem(s) and Goals/Treatment Plan: inpt milieu adjust meds per clinical status discharge planning in progress pending ltc h Estimated Date of D/C: 06/22/18 - Smoking Cessation Smoking Cessation Initiated: No Reason for not providing: pt defers
[2018-06-21] MEDS ORDERED: Insulin Detemir 100 Units/ml Inj SC SCH (17:00)
[2018-06-22] MEDS: Fluticasone-Salmeterol 250-50mcg Diskus IH SCH ×2 (08:15→21:10)
[2018-06-22] MEDS: Insulin Regular 100 units/ml SC SCH ×4 (08:17→21:11)
[2018-06-22] MEDS: Insulin Detemir 100 Units/ml Inj SC SCH ×2 (08:19→17:03)
[2018-06-22] MEDS: guaiFENesin 100 mg/5 ml Syrup UD PO SCH ×3 (08:21→17:03)
[2018-06-22] MEDS: Tiotropium 18 mcg Cap For Inhalation IH SCH (08:21)
--- NOTE | 2018-06-22 12:56 | CP.PCM.PN ---
<Patricia Prince - Last Filed: 06/22/18 12:53> Subjective - Date & Time of Evaluation Date of Evaluation: 06/22/18 Time of Evaluation: 12:30 - Subjective Subjective: Pt seen/evaluated, discussed with Dr. Cordova. No acute events overnight. Was eating lunch, related that this was the lunch she ordered, as in the past she thinks sometimes has gotten a different order. Denies chest pain, abdominal pain, shortness of breath. Objective - Vital Signs/Intake and Output Vital Signs (last 24 hours): Temp Pulse Resp BP Pulse Ox 97.4 F L 74 20 135/64 100 06/22/18 05:48 06/22/18 08:20 06/22/18 05:48 06/22/18 08:20 06/13/18 01:05 - Medications Medications: Current Medications Acetaminophen (Tylenol 325mg Tab) 650 mg PO Q4 PRN PRN Reason: Pain, moderate (4-7) Last Admin: 06/13/18 21:39 Dose: 650 mg Al Hydrox/Mg Hydrox/Simethicone (Maalox Plus 30 Ml) 30 ml PO Q4 PRN PRN Reason: Dyspepsia Last Admin: 06/16/18 14:53 Dose: 30 ml Albuterol (Ventolin Hfa 90 Mcg/Actuation (8 G)) 2 puff IH Q4 PRN PRN Reason: Shortness of Breath Amlodipine Besylate (Norvasc) 10 mg PO DAILY [facility] Last Admin: 06/22/18 08:20 Dose: 10 mg Donepezil HCl (Aricept) 5 mg PO HS [facility] Last Admin: 06/21/18 21:08 Dose: 5 mg Guaifenesin (Robitussin) 100 mg PO TID [facility] Last Admin: 06/22/18 12:38 Dose: 100 mg Hydrochlorothiazide (Hydrodiuril) 25 mg PO DAILY [facility] Last Admin: 06/22/18 08:18 Dose: 25 mg Insulin Detemir (Levemir) 34 units SC BID [facility] Last Admin: 06/22/18 08:19 Dose: 34 units Insulin Human Regular (Humulin R) 0 units SC ACHS [facility]; Protocol Last Admin: 06/22/18 12:37 Dose: 3 u Lorazepam (Ativan) 0.5 mg PO HS PRN PRN Reason: Insomnia Stop: 06/25/18 22:28 Lorazepam (Ativan) 0.5 mg PO Q6 PRN PRN Reason: Anixety/Agitation Stop: 06/25/18 22:28 Losartan Potassium (Cozaar) 100 mg PO DAILY [facility] Last Admin: 06/22/18 08:16 Dose: 100 mg Magnesium Hydroxide (Milk Of Magnesia) 30 ml PO HS PRN PRN Reason: Constipation Metformin HCl (Glucophage) 1,000 mg PO BID [facility] Last Admin: 06/22/18 08:16 Dose: 1,000 mg Mirtazapine (Remeron) 7.5 mg PO HS [facility] Last Admin: 06/21/18 21:08 Dose: 7.5 mg Fluticasone/Salmeterol (Advair Diskus 250/50) 1 puff IH Q12 [facility] Last Admin: 06/22/18 08:15 Dose: 1 puff Sitagliptin Phosphate (Januvia) 100 mg PO DAILY [facility] Last Admin: 06/22/18 08:18 Dose: 100 mg Tiotropium [place] (Spiriva) 18 mcg IH DAILY [facility] Last Admin: 06/22/18 08:21 Dose: 18 mcg - Labs Labs: 06/11/18 13:40 06/11/18 13:40 - Constitutional Appears: No Acute Distress - Head Exam Head Exam: NORMAL INSPECTION - Eye Exam Eye Exam: Normal appearance - ENT Exam ENT Exam: Mucous Membranes Moist - Respiratory Exam Respiratory Exam: NORMAL BREATHING PATTERN - GI/Abdominal Exam GI & Abdominal Exam: Soft - Extremities Exam Extremities Exam: Normal Inspection. absent: Calf Tenderness - Back Exam Back Exam: NORMAL INSPECTION - Neurological Exam Neurological Exam: Alert, Normal Gait - Psychiatric Exam Psychiatric exam: Normal Affect - Skin Skin Exam: Dry, Warm Assessment and Plan - Assessment and Plan (Free Text) Assessment: 77 yo homeless F with HTN and DM2, admitted to [facility] due to depression and inability to care for self. Non-complaince with medication outside of facility. Blood sugars still elevated, improving. Plan: - Primary psychiatric plan as per psych team - Continue current medical management as ordered, levemir 34 U SC BID - Encourage ambulation <Cordova,Mello K - Last Filed: 06/23/18 16:48> Objective - Vital Signs/Intake and Output Vital Signs (last 24 hours): Temp Pulse Resp BP Pulse Ox 97.9 F 84 20 126/57 L 100 06/23/18 16:37 06/23/18 16:37 06/23/18 16:37 06/23/18 16:37 06/13/18 01:05 - Medications Medications: Current Medications Acetaminophen (Tylenol 325mg Tab) 650 mg PO Q4 PRN PRN Reason: Pain, moderate (4-7) Last Admin: 06/13/18 21:39 Dose: 650 mg Al Hydrox/Mg Hydrox/Simethicone (Maalox Plus 30 Ml) 30 ml PO Q4 PRN PRN Reason: Dyspepsia Last Admin: 06/16/18 14:53 Dose: 30 ml Albuterol (Ventolin Hfa 90 Mcg/Actuation (8 G)) 2 puff IH Q4 PRN PRN Reason: Shortness of Breath Amlodipine Besylate (Norvasc) 10 mg PO DAILY [facility] Last Admin: 06/23/18 08:32 Dose: 10 mg Donepezil HCl (Aricept) 5 mg PO HS [facility] Last Admin: 06/22/18 21:10 Dose: 5 mg Guaifenesin (Robitussin) 100 mg PO TID [facility] Last Admin: 06/23/18 12:28 Dose: Not Given Hydrochlorothiazide (Hydrodiuril) 25 mg PO DAILY [facility] Last Admin: 06/23/18 08:31 Dose: 25 mg Insulin Detemir (Levemir) 34 units SC BID [facility] Last Admin: 06/23/18 08:31 Dose: 34 units Insulin Human Regular (Humulin R) 0 units SC [facility]; Protocol Last Admin: 06/23/18 12:31 Dose: 3 u Lorazepam (Ativan) 0.5 mg PO HS PRN PRN Reason: Insomnia Stop: 06/25/18 22:28 Lorazepam (Ativan) 0.5 mg PO Q6 PRN PRN Reason: Anixety/Agitation Stop: 06/25/18 22:28 Losartan Potassium (Cozaar) 100 mg PO DAILY [facility] Last Admin: 06/23/18 08:29 Dose: 100 mg Magnesium Hydroxide (Milk Of Magnesia) 30 ml PO HS PRN PRN Reason: Constipation Metformin HCl (Glucophage) 1,000 mg PO BID [facility] Last Admin: 06/23/18 08:28 Dose: 1,000 mg Mirtazapine (Remeron) 7.5 mg PO HS [facility] Last Admin: 06/22/18 21:10 Dose: 7.5 mg Fluticasone/Salmeterol (Advair Diskus 250/50) 1 puff IH Q12 [facility] Last Admin: 06/23/18 08:28 Dose: 1 puff Sitagliptin Phosphate (Januvia) 100 mg PO DAILY [facility] Last Admin: 06/23/18 08:31 Dose: 100 mg Tiotropium [place] (Spiriva) 18 mcg IH DAILY [facility] Last Admin: 06/23/18 12:29 Dose: 18 mcg - Labs Labs: 06/11/18 13:40 06/11/18 13:40 Assessment and Plan - Assessment and Plan (Free Text) Plan: Patient was personally seen and examined by me in rounds with residents. Available labs and diagnostic data reviewed. Case, Patient's condition and management plan discussed with residents in rounds. Agree with resident's progress note. Plan: As ordered.
--- NOTE | 2018-06-22 15:40 | PCM.PYCHPN ---
Psychiatric Progress Note - Psychiatric Progress Note Patient seen today, length of contact: Pt evaluated, case discussed w/ team, chart reviewed Patient Chief Complaint: i am having trouble remembering, i am going to go to group home, Problems Identified/Issues Discussed: alteration in cognition alteration in self care alteration in safety Medical Problems: per psychiatry per medicine per nursing per social work per recreational therapy Diagnostic Results: per psychiatry per medicine per nursing per social work per recreational DSM 5 Symptoms Update: alteration in cognition Medication Change: No Medical Record Reviewed: Yes Consults ordered or reviewed: pt seen by dr everett Mental Status Examination - Cognitive Function Orientation: Person, Place Memory: Impaired Attention: Poor Concentration: Poor Association: Loose Fund of Knowledge: Poor Decription of patient's judgement and insights: poor - Mood Mood: Neutral - Affect Affect: Broad - Speech Speech: Appropriate - Formal Thought Process Formal Thought Process: Loosening of associations - Suicidal Ideation Suicidal Ideation: No - Homicidal Ideation Homicidal Ideation: No Goal/Treatment Plan - Goal/Treatment Plan Need for Continued Stay: Severe functional impairment Progress Toward Problem(s) and Goals/Treatment Plan: inpt milieu adjust meds per clinical status discharge planning in progress pending ltc Estimated Date of D/C: 06/22/18 If changed, why: pt defers
[2018-06-23] MEDS: Fluticasone-Salmeterol 250-50mcg Diskus IH SCH ×2 (08:28→21:09)
[2018-06-23] MEDS: Insulin Regular 100 units/ml SC SCH ×4 (08:30→21:10)
[2018-06-23] MEDS: Insulin Detemir 100 Units/ml Inj SC SCH ×2 (08:31→16:57)
[2018-06-23] MEDS: guaiFENesin 100 mg/5 ml Syrup UD PO SCH ×3 (08:33→16:58)
[2018-06-23] MEDS: Tiotropium 18 mcg Cap For Inhalation IH SCH (12:29)
--- NOTE | 2018-06-23 12:36 | PCM.PYCHPN ---
Psychiatric Progress Note - Psychiatric Progress Note Patient seen today, length of contact: Pt evaluated, case discussed w/ team, chart reviewed Patient Chief Complaint: I am fine Problems Identified/Issues Discussed: pt evaluated, calm cooperative smiling , reported mood fine, alert awake oriented to person only no reported side effects, no reported behavioral disturbances, denied S/H I denied perceptual disturbances DSM 5 Symptoms Update: major neurocognitive disorder Medication Change: No Medical Record Reviewed: Yes Mental Status Examination - Cognitive Function Orientation: Person, Place Memory: Impaired Attention: Poor Concentration: Poor Association: Loose Fund of Knowledge: Poor - Mood Mood: Neutral - Affect Affect: Broad - Speech Speech: Appropriate - Formal Thought Process Formal Thought Process: Loosening of associations - Suicidal Ideation Suicidal Ideation: No - Homicidal Ideation Homicidal Ideation: No Goal/Treatment Plan - Goal/Treatment Plan Need for Continued Stay: Severe functional impairment Progress Toward Problem(s) and Goals/Treatment Plan: continue current management disposition planning Estimated Date of D/C: 06/22/18
[2018-06-24] MEDS: Tiotropium 18 mcg Cap For Inhalation IH SCH (08:15)
[2018-06-24] MEDS: guaiFENesin 100 mg/5 ml Syrup UD PO SCH ×3 (08:16→16:40)
[2018-06-24] MEDS: Fluticasone-Salmeterol 250-50mcg Diskus IH SCH ×2 (08:16→21:11)
[2018-06-24] MEDS: Insulin Detemir 100 Units/ml Inj SC SCH ×2 (08:20→16:39)
[2018-06-24] MEDS: Insulin Regular 100 units/ml SC SCH ×4 (08:22→21:16)
--- NOTE | 2018-06-24 09:14 | PN ---
DATE: 06/24/2018 SUBJECTIVE: The patient seen and examined. Interim events noted. Psychiatry followup and intervention noted and appreciated. The patient remains in geropsych unit. He is sleeping, arousable. No specific complaint. No specific issue reported by nursing staff other than fluctuation in blood sugar. PHYSICAL EXAMINATION: GENERAL: The patient is in no acute distress. VITAL SIGNS: Stable. Blood pressure is slightly high at 162. Accu-Cheks are also slightly high, but much better than the patient's admission status. HEART: S1 and S2, normal, regular. LUNGS: Good bilateral air exchange. ABDOMEN: Soft, nontender. EXTREMITIES: No edema. No calf swelling. No tenderness. No acute ischemia. CENTRAL NERVOUS SYSTEM: Essentially unchanged. DIAGNOSTIC DATA: Available diagnostic data reviewed. As mentioned earlier, Accu-Cheks are fluctuating, but still remains higher. ASSESSMENT AND PLAN: Overall, the patient is clinically stable. Plan as ordered. Mello Cordova MD
--- NOTE | 2018-06-24 11:09 | PCM.PYCHPN ---
Psychiatric Progress Note - Psychiatric Progress Note Patient seen today, length of contact: Pt evaluated, case discussed w/ team, chart reviewed Patient Chief Complaint: I slept well Problems Identified/Issues Discussed: pt evaluated, seen in bed, reported good sleep. mood is fine ,calm cooperative smiling , alert awake oriented to person only no reported side effects, no reported behavioral disturbances, denied S/H I denied perceptual disturbances DSM 5 Symptoms Update: major neurocognitive disorder Medication Change: No Medical Record Reviewed: Yes Mental Status Examination - Cognitive Function Orientation: Person, Place Memory: Impaired Attention: Poor Concentration: Poor Association: Loose Fund of Knowledge: Poor - Mood Mood: Neutral - Affect Affect: Broad - Speech Speech: Appropriate - Formal Thought Process Formal Thought Process: Loosening of associations - Suicidal Ideation Suicidal Ideation: No - Homicidal Ideation Homicidal Ideation: No Goal/Treatment Plan - Goal/Treatment Plan Need for Continued Stay: Severe functional impairment Progress Toward Problem(s) and Goals/Treatment Plan: continue current management disposition planning Estimated Date of D/C: 06/22/18
--- NOTE | 2018-06-25 08:13 | PCM.PYCHPN ---
Psychiatric Progress Note - Psychiatric Progress Note Patient seen today, length of contact: Pt evaluated, case discussed w/ team, chart reviewed Patient Chief Complaint: Inability to care for self Problems Identified/Issues Discussed: No new events over the weekend. Patient reports that her mood is stable. She denies feeling acutely depressed or anxious. She continues to have chronic memory deficits. NO AH/VH/SI/HI. Patient is aware she will be [facility] and is agreeable. Medication Change: No Medical Record Reviewed: Yes Consults ordered or reviewed: Medicine consult Psychology consult 06/15/18 Pt is a 77 year old female admitted to the geropsych unit and referred to the underwriter mortgage loan for evaluation. On the DRS, pt scored an overall score of 82. Pt scored in the Deficient Range on all tasks. Pt's Attention, Construction, Conceptualization, Memory and Initiation skills all fell in the Deficient Range. Pt was unable to state the year, day, date, president, and was unable to describe recent events. Significant cognitive/deficits evident on evaluation. Overall 82 Attention 29 Constuction 2 Conceptualization 25 Memory 9 Initiation 17 Thank you for this referral, Dr. Mitchell Mental Status Examination - Cognitive Function Orientation: Person, Place Memory: Impaired Attention: Poor Concentration: Poor Association: Loose Fund of Knowledge: Poor Decription of patient's judgement and insights: Chronic poor I/J due to neurocognitive impairment - Mood Mood: Neutral - Affect Affect: Broad - Speech Speech: Appropriate - Formal Thought Process Formal Thought Process: Loosening of associations Psychotic Thoughts and Behaviors: No AH/VH/paranoia/delusions - Suicidal Ideation Suicidal Ideation: No - Homicidal Ideation Homicidal Ideation: No Goal/Treatment Plan - Goal/Treatment Plan Need for Continued Stay: Severe functional impairment Progress Toward Problem(s) and Goals/Treatment Plan: Dementia (without behavioral disturbances); Depressive Disorder -Continue Remeron 7.5 mg PO HS -Continue Aricept 5 mg PO HS -Individual and group therapy -Psychoeducation -Disposition planning- refer for [facility] placement Estimated Date of D/C: 06/29/18
--- NOTE | 2018-06-25 08:49 | PN ---
DATE: 06/23/2018 SUBJECTIVE: The patient seen and examined. Interim events noted. Psychiatric followup and intervention noted and appreciated. The patient remains in geropsych unit. Feels okay. Denies any specific complaint. No specific issue reported by nursing staff. Accu-Chek today morning was 106. PHYSICAL EXAMINATION: GENERAL: The patient is in no acute distress. VITAL SIGNS: Stable. Physical exam is essentially unchanged. DIAGNOSTIC DATA: Available diagnostic data reviewed. ASSESSMENT AND PLAN: Overall, the patient is medically stable, awaiting for subacute rehab placement. Plan as ordered. Case and plan discussed with the patient. Mello Cordova MD
[2018-06-25] MEDS: Fluticasone-Salmeterol 250-50mcg Diskus IH SCH ×2 (09:03→21:16)
[2018-06-25] MEDS: Tiotropium 18 mcg Cap For Inhalation IH SCH (09:05)
[2018-06-25] MEDS: guaiFENesin 100 mg/5 ml Syrup UD PO SCH ×3 (09:05→17:39)
[2018-06-25] MEDS: Insulin Regular 100 units/ml SC SCH ×3 (09:06→17:41)
[2018-06-25] MEDS: Insulin Detemir 100 Units/ml Inj SC SCH ×2 (09:16→17:40)
--- NOTE | 2018-06-25 12:06 | PN ---
DATE: 06/25/2018 SUBJECTIVE: The patient seen and examined. Interim events noted. Psychiatric followup and intervention noted and appreciated. The patient remains in geropsych unit. Awake, responsive, feels okay. Denies any specific complaint. No chest pain or shortness of breath. PHYSICAL EXAMINATION: GENERAL: The patient is in no acute distress. VITAL SIGNS: Stable. Physical examination is essentially unchanged. DIAGNOSTIC DATA: Available diagnostic data reviewed. ASSESSMENT AND PLAN: Overall, the patient is medically stable awaiting for long-term placement, subacute rehab was denied by insurance. Plan as ordered. Mello Cordova MD
[2018-06-26] MEDS: Insulin Regular 100 units/ml SC SCH ×5 (00:11→21:17)
[2018-06-26] MEDS: Fluticasone-Salmeterol 250-50mcg Diskus IH SCH ×2 (08:34→21:15)
[2018-06-26] MEDS: Insulin Detemir 100 Units/ml Inj SC SCH ×2 (08:37→17:44)
[2018-06-26] MEDS: Tiotropium 18 mcg Cap For Inhalation IH SCH (08:41)
[2018-06-26] MEDS: guaiFENesin 100 mg/5 ml Syrup UD PO SCH ×3 (08:41→17:45)
--- NOTE | 2018-06-26 10:03 | PCM.PYCHPN ---
Psychiatric Progress Note - Psychiatric Progress Note Patient seen today, length of contact: Pt evaluated, case discussed w/ team, chart reviewed Patient Chief Complaint: Inability to care for self Problems Identified/Issues Discussed: No new events. Patient reports that her mood is stable. She denies feeling acutely depressed or anxious. She continues to have chronic memory deficits. NO AH/VH/SI/HI. Patient is aware she will be referred for half-way placem ent and is agreeable. Medication Change: No Medical Record Reviewed: Yes Consults ordered or reviewed: Medicine consult Psychology consult 06/15/18 Pt is a 77 year old female admitted to the geropsych unit and referred to the health technical writer for evaluation. On the DRS, pt scored an overall score of 82. Pt scored in the Deficient Range on all tasks. Pt's Attention, Construction, Conceptualization, Memory and Initiation skills all fell in the Deficient Range. Pt was unable to state the year, day, date, president, and was unable to describe recent events. Significant cognitive/deficits evident on evaluation. Overall 82 Attention 29 Constuction 2 Conceptualization 25 Memory 9 Initiation 17 Thank you for this referral, Dr. Mitchell Mental Status Examination - Cognitive Function Orientation: Person, Place Memory: Impaired Attention: Poor Concentration: Poor Association: Loose Fund of Knowledge: Poor Decription of patient's judgement and insights: Chronic poor I/J due to neurocognitive impairment - Mood Mood: Neutral - Affect Affect: Broad - Speech Speech: Appropriate - Formal Thought Process Formal Thought Process: Loosening of associations Psychotic Thoughts and Behaviors: No AH/VH/paranoia/delusions - Suicidal Ideation Suicidal Ideation: No - Homicidal Ideation Homicidal Ideation: No Goal/Treatment Plan - Goal/Treatment Plan Progress Toward Problem(s) and Goals/Treatment Plan: Dementia (without behavioral disturbances); Depressive Disorder -Continue Remeron 7.5 mg PO HS -Continue Aricept 5 mg PO HS -Individual and group therapy -Psychoeducation -Disposition planning- refer for long-term placement Estimated Date of D/C: 06/29/18
--- NOTE | 2018-06-26 14:12 | PN ---
DATE: 06/26/2018 SUBJECTIVE: The patient seen and examined. Interim events noted. Psychiatric followup noted and appreciated. Case discussed with psychiatrist. The patient remains in geropsych unit. Awake, responsive, feels okay. Denies any specific complaint. No chest pain or shortness of breath. PHYSICAL EXAMINATION: GENERAL: The patient is in no acute distress. VITAL SIGNS: Stable. Physical examination is essentially unchanged. DIAGNOSTIC DATA: Available diagnostic data reviewed. ASSESSMENT AND PLAN: Overall, the patient's general medical is stable. The patient is awaiting long-term placement. Plan as ordered. Case and plan discussed with patient and nurses. Case was also discussed with psychiatrist. Mello Cordova MD
--- NOTE | 2018-06-27 07:49 | CP.PCM.PN ---
<[place] - Last Filed: 06/27/18 08:26> Subjective - Date & Time of Evaluation Date of Evaluation: 06/27/18 Time of Evaluation: 07:40 - Subjective Subjective: Patient seen/evaluated with Dr. Cordova this AM. Patient had an episode of hypoglycemia with blood sugar of 48 this morning. Hypoglycemia protocol was followed and blood glucose 15 min after food was 73 mg /dl. Patient denies any complaints of dizziness, sweats, chest pain or dyspnea. Objective - Vital Signs/Intake and Output Vital Signs (last 24 hours): Temp Pulse Resp BP Pulse Ox 97.3 F L 70 18 130/67 100 06/27/18 05:57 06/27/18 05:57 06/27/18 05:57 06/27/18 05:57 06/13/18 01:05 - Medications Medications: Current Medications Acetaminophen (Tylenol 325mg Tab) 650 mg PO Q4 PRN PRN Reason: Pain, moderate (4-7) Last Admin: 06/13/18 21:39 Dose: 650 mg Al Hydrox/Mg Hydrox/Simethicone (Maalox Plus 30 Ml) 30 ml PO Q4 PRN PRN Reason: Dyspepsia Last Admin: 06/16/18 14:53 Dose: 30 ml Albuterol (Ventolin Hfa 90 Mcg/Actuation (8 G)) 2 puff IH Q4 PRN PRN Reason: Shortness of Breath Amlodipine Besylate (Norvasc) 10 mg PO DAILY [facility] Last Admin: 06/26/18 12:18 Dose: 10 mg Carvedilol (Coreg) 3.125 mg PO Q12 [facility] Last Admin: 06/26/18 21:18 Dose: 3.125 mg Donepezil HCl (Aricept) 5 mg PO HS [facility] Last Admin: 06/26/18 21:15 Dose: 5 mg Guaifenesin (Robitussin) 100 mg PO TID [facility] Last Admin: 06/26/18 17:45 Dose: Not Given Hydrochlorothiazide (Hydrodiuril) 25 mg PO DAILY [facility] Last Admin: 06/26/18 08:36 Dose: 25 mg Insulin Detemir (Levemir) 36 units SC BID [facility] Last Admin: 06/26/18 17:44 Dose: 36 units Insulin Human Regular (Humulin R) 0 units SC ACHS [facility]; Protocol Last Admin: 06/26/18 21:17 Dose: Not Given Losartan Potassium (Cozaar) 100 mg PO DAILY [facility] Last Admin: 06/26/18 08:35 Dose: 100 mg Magnesium Hydroxide (Milk Of Magnesia) 30 ml PO HS PRN PRN Reason: Constipation Metformin HCl (Glucophage) 1,000 mg PO BID [facility] Last Admin: 06/26/18 17:43 Dose: 1,000 mg Mirtazapine (Remeron) 7.5 mg PO HS [facility] Last Admin: 06/26/18 21:16 Dose: 7.5 mg Fluticasone/Salmeterol (Advair Diskus 250/50) 1 puff IH Q12 [facility] Last Admin: 06/26/18 21:15 Dose: 1 puff Sitagliptin Phosphate (Januvia) 100 mg PO DAILY [facility] Last Admin: 06/26/18 08:37 Dose: 100 mg Tiotropium [place] (Spiriva) 18 mcg IH DAILY [facility] Last Admin: 06/26/18 08:41 Dose: 18 mcg - Labs Labs: 06/11/18 13:40 06/11/18 13:40 - Constitutional Appears: Non-toxic, No Acute Distress - Head Exam Head Exam: NORMAL INSPECTION - Eye Exam Eye Exam: Normal appearance - ENT Exam ENT Exam: Mucous Membranes Moist - Respiratory Exam Respiratory Exam: NORMAL BREATHING PATTERN - Cardiovascular Exam Cardiovascular Exam: REGULAR RHYTHM, RRR, +S1, +S2 - GI/Abdominal Exam GI & Abdominal Exam: Soft, Normal Bowel Sounds. absent: Tenderness - Extremities Exam Extremities Exam: Normal Inspection. absent: Calf Tenderness - Neurological Exam Neurological Exam: Alert, Awake, Normal Gait - Psychiatric Exam Psychiatric exam: Normal Affect - Skin Skin Exam: Dry, Warm Assessment and Plan - Assessment and Plan (Free Text) Assessment: 77 year old homeless female with PMHx HTN and DM2, admitted to [facility] due to depression and inability to care for self. Non-complaince with medication outside of facility. Plan: - Primary psychiatric plan as per psych team - Continue current medical management as ordered, Levemir 36 U SC BID - Encourage ambulation Patient see and plan d/w Dr. Art Parry, [id number] <Mello Cordova - Last Filed: 06/29/18 13:27> Objective - Vital Signs/Intake and Output Vital Signs (last 24 hours): Temp Pulse Resp BP Pulse Ox 97.4 F L 64 18 138/74 100 06/29/18 06:00 06/29/18 08:27 06/29/18 06:00 06/29/18 08:27 06/13/18 01:05 - Medications Medications: Current Medications Albuterol (Ventolin Hfa 90 Mcg/Actuation (8 G)) 2 puff IH Q4 PRN PRN Reason: Shortness of Breath Amlodipine Besylate (Norvasc) 10 mg PO DAILY [facility] Last Admin: 06/29/18 08:27 Dose: 10 mg Carvedilol (Coreg) 3.125 mg PO Q12 [facility] Last Admin: 06/29/18 08:25 Dose: 3.125 mg Donepezil HCl (Aricept) 5 mg PO [facility] Last Admin: 06/28/18 21:22 Dose: 5 mg Hydrochlorothiazide (Hydrodiuril) 25 mg PO DAILY [facility] Last Admin: 06/29/18 08:22 Dose: 25 mg Insulin Detemir (Levemir) 30 units SC [facility] Last Admin: 06/28/18 21:26 Dose: 30 unit Insulin Detemir (Levemir) 36 units SC DAILY [facility] Last Admin: 06/29/18 08:26 Dose: 36 units Insulin Human Regular (Humulin R) 0 units SC [facility]; Protocol Last Admin: 06/29/18 12:10 Dose: 2 u Losartan Potassium (Cozaar) 100 mg PO DAILY [facility] Last Admin: 06/29/18 08:24 Dose: 100 mg Metformin HCl (Glucophage) 1,000 mg PO BID [facility] Last Admin: 06/29/18 08:23 Dose: 1,000 mg Mirtazapine (Remeron) 7.5 mg PO [facility] Last Admin: 06/28/18 21:22 Dose: 7.5 mg Fluticasone/Salmeterol (Advair Diskus 250/50) 1 puff IH Q12 [facility] Last Admin: 06/29/18 08:21 Dose: 1 puff Sitagliptin Phosphate (Januvia) 100 mg PO DAILY [facility] Last Admin: 06/29/18 08:22 Dose: 100 mg Tiotropium [place] (Spiriva) 18 mcg IH DAILY [facility] Last Admin: 06/29/18 08:23 Dose: 18 mcg - Labs Labs: 06/11/18 13:40 06/11/18 13:40 Assessment and Plan - Assessment and Plan (Free Text) Assessment: Patient was personally seen and examined by me in rounds with residents. Available labs and diagnostic data reviewed. Case, Patient's condition and management plan discussed with residents in rounds. Agree with resident's progress note. Plan: As ordered.
--- NOTE | 2018-06-27 08:16 | PCM.PYCHPN ---
Psychiatric Progress Note - Psychiatric Progress Note Patient seen today, length of contact: Pt evaluated, case discussed w/ team, chart reviewed Patient Chief Complaint: Inability to care for self Problems Identified/Issues Discussed: No new events overnight. Patient reports that her mood is stable. She denies feeling acutely depressed or anxious. She continues to have chronic memory deficits. NO AH/VH/SI/HI. Patient is aware she will be referred for nursing h ome placement and is agreeable. Medication Change: No Medical Record Reviewed: Yes Consults ordered or reviewed: Medicine consult Psychology consult 06/15/18 Pt is a 77 year old female admitted to the geropsych unit and referred to the principal technical writer for evaluation. On the DRS, pt scored an overall score of 82. Pt scored in the Deficient Range on all tasks. Pt's Attention, Construction, Conceptualization, Memory and Initiation skills all fell in the Deficient Range. Pt was unable to state the year, day, date, president, and was unable to describe recent events. Significant cognitive/deficits evident on evaluation. Overall 82 Attention 29 Constuction 2 Conceptualization 25 Memory 9 Initiation 17 Thank you for this referral, Dr. Mitchell Mental Status Examination - Cognitive Function Orientation: Person, Place Memory: Impaired Attention: Poor Concentration: Poor Association: Loose Fund of Knowledge: Poor Decription of patient's judgement and insights: Chronic poor I/J due to neurocognitive impairment - Mood Mood: Neutral - Affect Affect: Broad - Speech Speech: Appropriate - Formal Thought Process Formal Thought Process: Loosening of associations Psychotic Thoughts and Behaviors: No AH/VH/paranoia/delusions - Suicidal Ideation Suicidal Ideation: No - Homicidal Ideation Homicidal Ideation: No Goal/Treatment Plan - Goal/Treatment Plan Need for Continued Stay: Severe functional impairment Progress Toward Problem(s) and Goals/Treatment Plan: Dementia (without behavioral disturbances); Depressive Disorder -Continue Remeron 7.5 mg PO HS -Continue Aricept 5 mg PO HS -Individual and group therapy -Psychoeducation -Disposition planning- refer for [facility] placement Estimated Date of D/C: 06/29/18
[2018-06-27] MEDS: Fluticasone-Salmeterol 250-50mcg Diskus IH SCH ×2 (08:34→21:22)
[2018-06-27] MEDS: Insulin Regular 100 units/ml SC SCH ×4 (08:37→22:41)
[2018-06-27] MEDS: Insulin Detemir 100 Units/ml Inj SC SCH ×2 (08:39→17:11)
[2018-06-27] MEDS: Tiotropium 18 mcg Cap For Inhalation IH SCH (08:41)
[2018-06-27] MEDS: guaiFENesin 100 mg/5 ml Syrup UD PO SCH ×3 (08:41→16:19)
--- NOTE | 2018-06-27 12:57 | PCM.BM ---
Treatment Plan Problems - Problems identified on initial assessmt Hopelessness/Helplessness Date Initiated: 06/11/18 Time Initiated: 22:46 Assessment reference: NA Status: Active Altered Sleep Patterns Date Initiated: 06/11/18 Time Initiated: 22:46 Assessment reference: NA Status: Active Medication nonadherence Date Initiated: 06/11/18 Time Initiated: 22:47 Assessment reference: NA Status: Active Treatment assets and liabiliti Patient Assests: adapts well, cooperative, self-reliant, ADL independent, negotiates basic needs Patient Liabilities: live alone, financial problems, medical problems - Milieu Protocol Maintain good personal hygiene: every shift Encourage regular showers, every shift Remind patient to perform daily oral care, every shift Assist patient to perform ADL's Maintain personal safety: daily Educate patient to report safety concerns to staff, daily Monitor environment for contraband/sharps Medication safety: Monitor for expected outcome, potential side effects: daily, Assess barriers to learning: daily, Assess readiness for medication education: daily Milieu Narrative: Dementia (without behavioral disturbances); Depressive Disorder -Continue Remeron 7.5 mg PO HS -Continue Aricept 5 mg PO HS -Individual and group therapy -Psychoeducation -Disposition planning- refer for ferry terminal agent placement Family Contact Family involvement: Family/SO is involved Family contact: Patient agrees to contact, Family has been contacted by patient, Telephone contact initiated by staff Family contact name: Julian Merritt- jose Family contacted how many times per week?: 1 Family contact comment: Please refer to SW progress Note dated 06/13/2018 - Goals for Treatment Patient goals for treatment: Pt will improve overall mood. Pt will develop strategies for thought distraction ruminating on the past. Pt will be medication compliant. Pt will take medicationsas prescribed on a daily basis. Pt will report any medications concerns to the doctor as soon as possible. Discharge/Continuing Care - Education Needs Education Needs: Family Medication, Family Diagnosis/Disease Process, Family Placement options, Family Community resources, Family Uses of Medical Equipment, Family Health Practices/Safety, Family Personal Hygiene/Grooming, Family Aftercare Safety Plan, Patient Medication, Patient Diagnosis/Disease Process, Patient Placement options, Patient Community resources, Patient Uses of Medical Equipment, Patient Health Practices/Safety, Patient Personal Hygiene/Grooming, Patient Aftercare Safety Plan - Discharge Discharge Criteria: Tolerates medication w/o severe side effects, Normal sleep pattern, Ability to care for self, Reduction of target symptoms Discharge to:: Alf - Additional Comments 06/13/18 14:51 Pt seen and discussed in team meeting. Reason for admission reviewed and discussed. Pt reported she was referred to the ED due high blood sugar. Pt repor jason that she ran out of medication for one week because her PMD, Dr. Meli Bloom MD went on vacation. Pt reported feeling depressed and sad "sometimes." Pt reported that her son 5 months ago due to diabetes. Pt reported that since son she was evicted form her apartment due to rent non-payment. Pt reported that she is currently staying at a retirement in [place], [place]. Pt reported that her wish is to rent a room and be able to live with her grandson again. Pt reported that she rather than be from her grandson. Pt reported that she raised her grandson and cannot be from him. Pt reported that she has applied for housing but "nothing." Pt reported that her memory is "sometimes i can remember and sometimes i cannot." Pt's medical and social issues reviewed. Pt verbalized understanding of what could happen if she does not comply with medications. Pt reported that she is aware that if she stop taking her diabetes medication that she can . Pt's medications reviewed and discussed. Tx plan reviewed and discussed. Pt is agreeable to meet with SW and grandson tomorrow, 06/14 to review and discuss custodial placement. Pt is hesitant at this time because she does not wish to leave her grandson alone. SW will continue to follow case. - Treatment Team Participation Patient/Family/SO Statement: Dementia (without behavioral disturbances); Depressive Disorder -Continue Remeron 7.5 mg PO HS -Continue Aricept 5 mg PO HS -Individual and group therapy -Psychoeducation -Disposition planning- refer for care home placement Discussed with Family/SO: No Was Patient/Family/SO present at Treatment Team Meeting: Yes Treatment Plan Review Patient participation: Yes Family/SO/Caregiver participation: No Additional Comments: Pt seen and discussed in team meting. Pt's progress and bx on the unit reviewed and discussed. Pt presented easily irritable and agitated during team meeting. Pt denied AVH. Pt denied any paranoia. Pt denied feelings of depression and anxiety. Pt continues to present with poor memory and poor insight and judgment into illness. Pt reports that she does not have nay memory issues and that her memory is intact. Pt reported that if she were forgetful and confused like providers state "why was i cooking and doing things for myself?" Attending psychiatrist perform mini mental exam and pt was only able to recall her name and hospital. Pt reported that she does not "care for the date or the president because it's not of importance to me." Pt was unable to recall her medications and dosage prior to hospital admissions and even know on the unit. Psycho- education regarding medication management and compliance provided. Pt continues to present with poor insight and judgment into dx. Pt reported "you think someone with a bad mind can sign their name?" Pt's medications reviewed and discussed. Attending psychiatrist reported no medication change at the moment as pt is psychiatrically stable and awaiting care home care placement. Pt is an unsafe discharge back to the community and cannot return to retirement. Pt is forgetful and unable to care for herself. Pt was clinically accepted at [facility] and senior medical writer has been attempting to obtain pre- certification for placement/facility. Pt's social and medical issues reviewed. Tx plan reviewed. Pt verbalized agreement. SW will continue to follow case. - Problem Hopelessness/Helplessness Date Initiated: 06/11/18 Time Initiated: 22:46 Progress toward outcomes: unchanged (Pt continues to verbalize feelings of helplessness due to her living situation. Pt reported she does not understand why "God is punishing me if i do nothing but good for him?") Altered Sleep Patterns Date Initiated: 06/11/18 Time Initiated: 22:46 Progress toward outcomes: resolved (Pt reported improved sleep pattern. Pt RN report, pt observed to be asleep throughout the security shift manager.) Date resolved: 06/25/18 Medication nonadherence Date Initiated: 06/11/18 Time Initiated: 22:47 Progress toward outcomes: resolved (Pt compliant with prescribed medication on the unit.) Impaired ambulation/stair climbing Date Initiated: 06/11/18 Progress toward outcomes: unchanged (Pt continues to present with poor memory and increased forgetfulness and confused. Pt is not im agreement with dx and believes that her memory is "good.") Impaired Functional transfers Date Initiated: 06/11/18 Progress toward outcomes: improved Altered Thought Process Date Initiated: 06/11/18 Progress toward outcomes: unchanged (Pt continues to exhibit poor memory and severe cognitive deficits. Pt is increasingly forgetful and confused.) Nutrition Less Than Body Requirements Date Initiated: 06/11/18 Progress toward outcomes: resolved (Pt's appetite has improved since admission. Pt observed to finish most of her meals.) Date resolved: 06/25/18 - Discharge / Continuing Care Discharge to:: Alf (Pt was clinically accepted at [facility]; pending pre-auth for transfer. ) Behavioral Health Services: Outpatient therapy, Other (Medication management; structed environment and groups) Health Needs: Follow up care/test, Doctor appointments, Special equipment, Nutritional, Medications/Rx, Educational, Recreational/Social
--- NOTE | 2018-06-28 07:51 | PCM.PYCHPN ---
Psychiatric Progress Note - Psychiatric Progress Note Patient seen today, length of contact: Pt evaluated, case discussed w/ team, chart reviewed Patient Chief Complaint: Inability to care for self Problems Identified/Issues Discussed: Patient reports that her mood is stable. She denies feeling acutely depressed or anxious. She continues to have chronic memory deficits. NO AH/VH/SI/HI. Patient is aware she will be referred for alf placement and is agre eable. Medication Change: No Medical Record Reviewed: Yes Consults ordered or reviewed: Medicine consult Psychology consult 06/15/18 Pt is a 77 year old female admitted to the geropsych unit and referred to the journalists and other writers for evaluation. On the DRS, pt scored an overall score of 82. Pt scored in the Deficient Range on all tasks. Pt's Attention, Construction, Conceptualization, Memory and Initiation skills all fell in the Deficient Range. Pt was unable to state the year, day, date, president, and was unable to descri be recent events. Significant cognitive/deficits evident on evaluation. Overall 82 Attention 29 Constuction 2 Conceptualization 25 Memory 9 Initiation 17 Thank you for this referral, Dr. Mitchell Mental Status Examination - Cognitive Function Orientation: Person, Place Memory: Impaired Attention: Poor Concentration: Poor Association: Loose Fund of Knowledge: Poor Decription of patient's judgement and insights: Chronic poor I/J due to neurocognitive impairment - Mood Mood: Neutral - Affect Affect: Broad - Speech Speech: Appropriate - Formal Thought Process Formal Thought Process: Loosening of associations Psychotic Thoughts and Behaviors: No AH/VH/paranoia/delusions - Suicidal Ideation Suicidal Ideation: No - Homicidal Ideation Homicidal Ideation: No Goal/Treatment Plan - Goal/Treatment Plan Progress Toward Problem(s) and Goals/Treatment Plan: Dementia (without behavioral disturbances); Depressive Disorder -Continue Remeron 7.5 mg PO HS -Continue Aricept 5 mg PO HS -Individual and group therapy -Psychoeducation -Disposition planning- refer for intermediate designer placement Estimated Date of D/C: 06/29/18
[2018-06-28] MEDS: Fluticasone-Salmeterol 250-50mcg Diskus IH SCH ×2 (08:02→21:21)
[2018-06-28] MEDS: Insulin Regular 100 units/ml SC SCH ×3 (08:04→21:26)
[2018-06-28] MEDS: Tiotropium 18 mcg Cap For Inhalation IH SCH (08:04)
[2018-06-28] MEDS: Insulin Detemir 100 Units/ml Inj SC SCH (08:07)
[2018-06-28] MEDS: guaiFENesin 100 mg/5 ml Syrup UD PO SCH ×3 (08:08→17:32)
--- NOTE | 2018-06-28 09:11 | CP.PCM.PN ---
<Carol StreamConover - Last Filed: 06/28/18 10:25> Subjective - Date & Time of Evaluation Date of Evaluation: 06/28/18 Time of Evaluation: 08:15 - Subjective Subjective: Patient seen/evaluated with Dr. Cordova this AM. Patient had another episode of hypoglycemia with blood sugar of 53 this morning. Hypoglycemia protocol was followed and blood glucose after food was 122 mg /dl. Patient denies any complaints of dizziness, sweats, chest pain or dyspnea. No acute complaints. Objective - Vital Signs/Intake and Output Vital Signs (last 24 hours): Temp Pulse Resp BP Pulse Ox 97.6 F 72 17 132/77 100 06/28/18 06:00 06/28/18 08:16 06/28/18 06:00 06/28/18 08:16 06/13/18 01:05 - Medications Medications: Current Medications Acetaminophen (Tylenol 325mg Tab) 650 mg PO Q4 PRN PRN Reason: Pain, moderate (4-7) Last Admin: 06/13/18 21:39 Dose: 650 mg Al Hydrox/Mg Hydrox/Simethicone (Maalox Plus 30 Ml) 30 ml PO Q4 PRN PRN Reason: Dyspepsia Last Admin: 06/16/18 14:53 Dose: 30 ml Albuterol (Ventolin Hfa 90 Mcg/Actuation (8 G)) 2 puff IH Q4 PRN PRN Reason: Shortness of Breath Amlodipine Besylate (Norvasc) 10 mg PO DAILY [facility] Last Admin: 06/28/18 08:16 Dose: 10 mg Carvedilol (Coreg) 3.125 mg PO Q12 [facility] Last Admin: 06/28/18 08:03 Dose: 3.125 mg Donepezil HCl (Aricept) 5 mg PO HS [facility] Last Admin: 06/27/18 21:22 Dose: 5 mg Guaifenesin (Robitussin) 100 mg PO TID [facility] Last Admin: 06/28/18 08:08 Dose: Not Given Hydrochlorothiazide (Hydrodiuril) 25 mg PO DAILY [facility] Last Admin: 06/28/18 08:04 Dose: 25 mg Insulin Detemir (Levemir) 30 units SC [facility] Insulin Detemir (Levemir) 36 units SC DAILY [facility] Last Admin: 06/28/18 08:07 Dose: 36 units Insulin Human Regular (Humulin R) 0 units SC ACHS [facility]; Protocol Last Admin: 06/28/18 08:04 Dose: Not Given Losartan Potassium (Cozaar) 100 mg PO DAILY [facility] Last Admin: 06/28/18 08:03 Dose: 100 mg Magnesium Hydroxide (Milk Of Magnesia) 30 ml PO HS PRN PRN Reason: Constipation Metformin HCl (Glucophage) 1,000 mg PO BID [facility] Last Admin: 06/28/18 08:08 Dose: 1,000 mg Mirtazapine (Remeron) 7.5 mg PO HS [facility] Last Admin: 06/27/18 21:22 Dose: 7.5 mg Fluticasone/Salmeterol (Advair Diskus 250/50) 1 puff IH Q12 [facility] Last Admin: 06/28/18 08:02 Dose: 1 puff Sitagliptin Phosphate (Januvia) 100 mg PO DAILY [facility] Last Admin: 06/28/18 08:04 Dose: 100 mg Tiotropium [place] (Spiriva) 18 mcg IH DAILY [facility] Last Admin: 06/28/18 08:04 Dose: 18 mcg - Labs Labs: 06/11/18 13:40 06/11/18 13:40 - Constitutional Appears: Non-toxic, No Acute Distress - Head Exam Head Exam: NORMAL INSPECTION - Eye Exam Eye Exam: Normal appearance - Neck Exam Neck Exam: Normal Inspection - Respiratory Exam Respiratory Exam: NORMAL BREATHING PATTERN - GI/Abdominal Exam GI & Abdominal Exam: Soft, Normal Bowel Sounds. absent: Tenderness - Extremities Exam Extremities Exam: Normal Inspection. absent: Calf Tenderness - Neurological Exam Neurological Exam: Alert, Awake, Oriented x3 - Psychiatric Exam Psychiatric exam: Normal Affect, Normal Mood - Skin Skin Exam: Normal Color Assessment and Plan - Assessment and Plan (Free Text) Assessment: 77 year old homeless female with PMHx HTN and DM2, admitted to [facility] due to depression and inability to care for self. Non-complaince with medication outside of facility. Patient is awaiting for snf placement. Plan: - Primary psychiatric plan as per psych team - Decrease Levemir to 30 units in the evening and continue with Levemir 36 units HS. - Rest of the plan as ordered. - Encourage ambulation Patient see and plan d/w Dr. Art Parry, pgy-2 <Mello Cordova - Last Filed: 06/29/18 13:25> Objective - Vital Signs/Intake and Output Vital Signs (last 24 hours): Temp Pulse Resp BP Pulse Ox 97.4 F L 64 18 138/74 100 06/29/18 06:00 06/29/18 08:27 06/29/18 06:00 06/29/18 08:27 06/13/18 01:05 - Medications Medications: Current Medications Albuterol (Ventolin Hfa 90 Mcg/Actuation (8 G)) 2 puff IH Q4 PRN PRN Reason: Shortness of Breath Amlodipine Besylate (Norvasc) 10 mg PO DAILY [facility] Last Admin: 06/29/18 08:27 Dose: 10 mg Carvedilol (Coreg) 3.125 mg PO Q12 [facility] Last Admin: 06/29/18 08:25 Dose: 3.125 mg Donepezil HCl (Aricept) 5 mg PO [facility] Last Admin: 06/28/18 21:22 Dose: 5 mg Hydrochlorothiazide (Hydrodiuril) 25 mg PO DAILY [facility] Last Admin: 06/29/18 08:22 Dose: 25 mg Insulin Detemir (Levemir) 30 units SC [facility] Last Admin: 06/28/18 21:26 Dose: 30 unit Insulin Detemir (Levemir) 36 units SC DAILY [facility] Last Admin: 06/29/18 08:26 Dose: 36 units Insulin Human Regular (Humulin R) 0 units SC [facility]; Protocol Last Admin: 06/29/18 12:10 Dose: 2 u Losartan Potassium (Cozaar) 100 mg PO DAILY [facility] Last Admin: 06/29/18 08:24 Dose: 100 mg Metformin HCl (Glucophage) 1,000 mg PO BID [facility] Last Admin: 06/29/18 08:23 Dose: 1,000 mg Mirtazapine (Remeron) 7.5 mg PO [facility] Last Admin: 06/28/18 21:22 Dose: 7.5 mg Fluticasone/Salmeterol (Advair Diskus 250/50) 1 puff IH Q12 [facility] Last Admin: 06/29/18 08:21 Dose: 1 puff Sitagliptin Phosphate (Januvia) 100 mg PO DAILY [facility] Last Admin: 06/29/18 08:22 Dose: 100 mg Tiotropium [place] (Spiriva) 18 mcg IH DAILY [facility] Last Admin: 06/29/18 08:23 Dose: 18 mcg - Labs Labs: 06/11/18 13:40 06/11/18 13:40 Assessment and Plan - Assessment and Plan (Free Text) Assessment: Patient was personally seen and examined by me in rounds with residents. Available labs and diagnostic data reviewed. Case, Patient's condition and management plan discussed with residents in rounds. Agree with resident's progress note. Plan: As ordered.
[2018-06-28 15:49] VITALS: RESP 18
[2018-06-28] MEDS ORDERED: Insulin Detemir 100 Units/ml Inj SC SCH (22:00)
[2018-06-29 06:23] VITALS: BP 138/74; PULSE 64; TEMP 97.4
[2018-06-29] MEDS: Fluticasone-Salmeterol 250-50mcg Diskus IH SCH (08:21)
[2018-06-29] MEDS: Insulin Regular 100 units/ml SC SCH ×2 (08:22→12:10)
[2018-06-29] MEDS: Tiotropium 18 mcg Cap For Inhalation IH SCH (08:23)
[2018-06-29] MEDS: Insulin Detemir 100 Units/ml Inj SC SCH (08:26)
--- NOTE | 2018-06-29 08:34 | CP.PCM.PN ---
<Sultan Sohan - Last Filed: 06/29/18 08:34> Subjective - Date & Time of Evaluation Date of Evaluation: 06/29/18 Time of Evaluation: 08:00 - Subjective Subjective: Patient seen and evaluated with Dr. Cordova this AM. No acute overnight event. Blood sugar stable. No hypoglycemic episode Patient denies any complaints of dizziness, sweats, chest pain or dyspnea. No acute complaints. Patient will be discharged today to [facility]. Objective - Vital Signs/Intake and Output Vital Signs (last 24 hours): Temp Pulse Resp BP Pulse Ox 97.4 F L 64 18 138/74 100 06/29/18 06:00 06/29/18 08:27 06/29/18 06:00 06/29/18 08:27 06/13/18 01:05 - Medications Medications: Current Medications Albuterol (Ventolin Hfa 90 Mcg/Actuation (8 G)) 2 puff IH Q4 PRN PRN Reason: Shortness of Breath Amlodipine Besylate (Norvasc) 10 mg PO DAILY [facility] Last Admin: 06/29/18 08:27 Dose: 10 mg Carvedilol (Coreg) 3.125 mg PO Q12 [facility] Last Admin: 06/29/18 08:25 Dose: 3.125 mg Donepezil HCl (Aricept) 5 mg PO [facility] Last Admin: 06/28/18 21:22 Dose: 5 mg Hydrochlorothiazide (Hydrodiuril) 25 mg PO DAILY [facility] Last Admin: 06/29/18 08:22 Dose: 25 mg Insulin Detemir (Levemir) 30 units SC [facility] Last Admin: 06/28/18 21:26 Dose: 30 unit Insulin Detemir (Levemir) 36 units SC DAILY [facility] Last Admin: 06/29/18 08:26 Dose: 36 units Insulin Human Regular (Humulin R) 0 units SC [facility]; Protocol Last Admin: 06/29/18 08:22 Dose: Not Given Losartan Potassium (Cozaar) 100 mg PO DAILY [facility] Last Admin: 06/29/18 08:24 Dose: 100 mg Metformin HCl (Glucophage) 1,000 mg PO BID [facility] Last Admin: 06/29/18 08:23 Dose: 1,000 mg Mirtazapine (Remeron) 7.5 mg PO [facility] Last Admin: 06/28/18 21:22 Dose: 7.5 mg Fluticasone/Salmeterol (Advair Diskus 250/50) 1 puff IH Q12 [facility] Last Admin: 06/29/18 08:21 Dose: 1 puff Sitagliptin Phosphate (Januvia) 100 mg PO DAILY [facility] Last Admin: 06/29/18 08:22 Dose: 100 mg Tiotropium [place] (Spiriva) 18 mcg IH DAILY [facility] Last Admin: 06/29/18 08:23 Dose: 18 mcg - Labs Labs: 06/11/18 13:40 06/11/18 13:40 - Constitutional Appears: Well, No Acute Distress - Head Exam Head Exam: NORMAL INSPECTION - Eye Exam Eye Exam: Normal appearance - Neck Exam Neck Exam: Normal Inspection - Respiratory Exam Respiratory Exam: NORMAL BREATHING PATTERN - Cardiovascular Exam Cardiovascular Exam: REGULAR RHYTHM, +S1, +S2 - GI/Abdominal Exam GI & Abdominal Exam: Soft, Normal Bowel Sounds. absent: Tenderness - Extremities Exam Extremities Exam: Normal Inspection. absent: Calf Tenderness - Neurological Exam Neurological Exam: Alert, Awake, Normal Gait - Psychiatric Exam Psychiatric exam: Normal Affect, Normal Mood - Skin Skin Exam: Normal Color Assessment and Plan - Assessment and Plan (Free Text) Assessment: 77 year old homeless female with PMHx HTN and DM2, admitted to [facility] due to depression and inability to care for self. Non-complaince with medication o utside of facility. Anticipate discharge today [facility]. Plan: - Primary psychiatric plan as per psych team - continue with current DMII regimen and HTN medications. - Rest of the plan as ordered. -Stable to discharge to [facility]. Patient seen and plan d/w Dr. Art Parry, pgy-2 <Mello Cordova - Last Filed: 06/29/18 13:23> Objective - Vital Signs/Intake and Output Vital Signs (last 24 hours): Temp Pulse Resp BP Pulse Ox 97.4 F L 64 18 138/74 100 06/29/18 06:00 06/29/18 08:27 06/29/18 06:00 06/29/18 08:27 06/13/18 01:05 - Medications Medications: Current Medications Albuterol (Ventolin Hfa 90 Mcg/Actuation (8 G)) 2 puff IH Q4 PRN PRN Reason: Shortness of Breath Amlodipine Besylate (Norvasc) 10 mg PO DAILY [facility] Last Admin: 06/29/18 08:27 Dose: 10 mg Carvedilol (Coreg) 3.125 mg PO Q12 [facility] Last Admin: 06/29/18 08:25 Dose: 3.125 mg Donepezil HCl (Aricept) 5 mg PO HS [facility] Last Admin: 06/28/18 21:22 Dose: 5 mg Hydrochlorothiazide (Hydrodiuril) 25 mg PO DAILY [facility] Last Admin: 06/29/18 08:22 Dose: 25 mg Insulin Detemir (Levemir) 30 units SC [facility] Last Admin: 06/28/18 21:26 Dose: 30 unit Insulin Detemir (Levemir) 36 units SC DAILY [facility] Last Admin: 06/29/18 08:26 Dose: 36 units Insulin Human Regular (Humulin R) 0 units SC [facility]; Protocol Last Admin: 06/29/18 12:10 Dose: 2 u Losartan Potassium (Cozaar) 100 mg PO DAILY [facility] Last Admin: 06/29/18 08:24 Dose: 100 mg Metformin HCl (Glucophage) 1,000 mg PO BID [facility] Last Admin: 06/29/18 08:23 Dose: 1,000 mg Mirtazapine (Remeron) 7.5 mg PO HS [facility] Last Admin: 06/28/18 21:22 Dose: 7.5 mg Fluticasone/Salmeterol (Advair Diskus 250/50) 1 puff IH Q12 [facility] Last Admin: 06/29/18 08:21 Dose: 1 puff Sitagliptin Phosphate (Januvia) 100 mg PO DAILY [facility] Last Admin: 06/29/18 08:22 Dose: 100 mg Tiotropium [place] (Spiriva) 18 mcg IH DAILY [facility] Last Admin: 06/29/18 08:23 Dose: 18 mcg - Labs Labs: 06/11/18 13:40 06/11/18 13:40 Assessment and Plan - Assessment and Plan (Free Text) Assessment: Patient was personally seen and examined by me in rounds with residents. Available labs and diagnostic data reviewed. Case, Patient's condition and management plan discussed with residents in rounds. Agree with resident's progress note. Plan: As ordered.
--- NOTE | 2018-06-29 08:45 | PCM.PYCHDC ---
Mental Status Examination - Mental Status Examination Orientation: Person, Place Memory: Impaired Mood: Neutral Affect: Broad Speech: Appropriate Attention: Poor Concentration: Poor Association: Loose Fund of Knowledge: Poor Formal Thought Process: Loosening of associations Description of patient's judgement and insight: Chronic poor I/J due to neurocognitive impairment Psychotic Thoughts and Behaviors: No AH/VH/paranoia/delusions Suicidal Ideation: No Current Homicidal Ideation?: No Discharge Summary - Discharge Note Reason for Hospitalization: HPI: 77 yo female w/ h/o DM, HTN, COPD, presented w/ chest pain and complaints of worsening depression, sleep disturbances and decreased ability to care for self. She denies anxiety/AH/VH/SI/HI. She is unable to remember any of her current medications. A + O x self and hospital. PMHx: COPD, HTN, DM, Asthma ALL: Celecoxib, Ibuprofen, PCN PPHx: Denies past psychiatric history SHx: Homeless, cared for by grandson, denies drugs/etoh Laboratory Data: Abnormal Lab Results 06/28/18 06/28/18 06/28/18 11:41 15:35 20:05 POC Glucose (mg/dL) 194 H 150 H 216 H 06/29/18 06:08 POC Glucose (mg/dL) 145 H Consultations:: List each consultation separately and include: 1. Reason for request. 2. Findings. 3. Follow-up Consultations: Medicine consult Psychology consult 06/15/18 Pt is a 77 year old female admitted to the geropsych unit and referred to the senior grant writer for evaluation. On the DRS, pt scored an overall score of 82. Pt scored in the Deficient Range on all tasks. Pt's Attention, Construction, Conceptualization, Memory and Initiation skills all fell in the Deficient Range. Pt was unable to state the year, day, date, president, and was unable to describe recent events. Significant cognitive/deficits evident on evaluation. Overall 82 Attention 29 Constuction 2 Conceptualization 25 Memory 9 Initiation 17 Thank you for this referral, Dr. Mitchell Summary of Hospital Course include:: 1. Description of specific treatment plan utilized for patients during their course of treatmen. 2. Summarize the time- course for resolution of acute symptoms and/or regressed behaviors. 3. Describe issues identified and worked on during hospitalization. 4. Describe medication utilized. 5. Describe medical problems identified and treated. 6. Reassessment of suicide risk Summary of Hospital Course: Patient was admitted to the psychiatry unit. Individual and group therapy were provided. Patient was found to have significant neurocognitive deficits and is agreeable to penitentiary placement as she is not able to care for herself at this time. She was stabilized on Remeron 7.5 mg PO HS and Aricept 5 mg PO HS. She denies acute depression/anxiety/AH/VH/SI/HI. She is psychiatrically stable for discharge at this time. - Diagnosis (1) Depressive disorder Current Visit: Yes Status: Resolved (2) Dementia Current Visit: Yes Status: Chronic - Final Diagnosis (DSM 5) Condition upon Discharge: STABLE DSM 5: Dementia (without behavioral disturbances); Depressive Disorder Disposition: TRANSF TO SNF Follow-up Treatment Plan: Dementia (without behavioral disturbances); Depressive Disorder -Continue Remeron 7.5 mg PO HS -Continue Aricept 5 mg PO HS -Medicine consulted re: medication management - Smoking Cessation Smoking Cessation Medication prescribed: No Reason for not providing: Not indicated - Antipsychotic Medications Pt discharged on 2 or more routine antipsychotic medications: No
== END 2018-06-29 14:27 | DRG 884 ==
LOC: H.ER 11:15 → H.ERHOLD 19:38 → H.STEP 22:24
PROVIDERS: ADMIT Psychiatry & Neurology Psychiatry; ATTEND Psychiatry & Neurology Psychiatry
PROC: GZHZZZZ Group Psychotherapy (ICD-10-PCS; principal; 2018-06-11)
PROC: GZ58ZZZ Individual Psychotherapy, Cognitive-Behavioral (ICD-10-PCS; 2018-06-11)
PROC: 3E02340 Introduction of Influenza Vaccine into Muscle, Percutaneous Approach (ICD-10-PCS; 2018-06-13)
PROC: 3E0234Z Introduction of Serum, Toxoid and Vaccine into Muscle, Percutaneous Approach (ICD-10-PCS; 2018-06-13)
DX: F01.50 Vascular dementia, unspecified severity, without behavioral disturbance, psychotic disturbance, mood disturbance, and anxiety (principal); F32.9 Major depressive disorder, single episode, unspecified; I11.0 Hypertensive heart disease with heart failure; I50.9 Heart failure, unspecified; E11.65 Type 2 diabetes mellitus with hyperglycemia; E11.649 Type 2 diabetes mellitus with hypoglycemia without coma; F41.9 Anxiety disorder, unspecified; J44.9 Chronic obstructive pulmonary disease, unspecified; K21.9 Gastro-esophageal reflux disease without esophagitis; E78.00 Pure hypercholesterolemia, unspecified; G89.29 Other chronic pain; M19.90 Unspecified osteoarthritis, unspecified site; Z75.1 Person awaiting admission to adequate facility elsewhere; Z91.14 Patient's other noncompliance with medication regimen; Z23 Encounter for immunization; Z79.84 Long term (current) use of oral hypoglycemic drugs; Z79.899 Other long term (current) drug therapy; Z88.0 Allergy status to penicillin; Z59.0 Homelessness; Z90.49 Acquired absence of other specified parts of digestive tract; Z90.710 Acquired absence of both cervix and uterus